=== PATIENT | female | born 1945 | race Caucasian/White ===

== ENCOUNTER → 2020-03-18 12:20 | Outpatient (BNVA) | payer MEDICARE, OTHER, SELFPAY | PROVIDERS: Family Provider Family Medicine; Visit Provider Nurse Practitioner Family | DX: M54.9 Dorsalgia, unspecified (principal) | CPT/HCPCS: 81000 ==

== ENCOUNTER 2020-03-21 22:28 | Emergency (ER) | payer MEDICARE, OTHER, SELFPAY ==
[2020-03-21 22:54] VITALS: BP 132/79; PULSE 72; RESP 16; TEMP 36.8; O2SAT 91; BMI 34.0
--- NOTE | 2020-03-21 23:13 | XR_ITS ---
WS: [id number] Exam: XR chest 1V portable [id number] Date/Time of Exam: 03/21/2020 11:22 PM Reason For Exam: sob No priors. Minimal infiltrate in the right base could represent chronic change or developing pneumonia. Remainin g lung brand are clear. Normal cardiomediastinal structures and regional bony elements. No pleural e ffusions. No pneumothorax. XR/XR chest 1V portable [id number] IMPRESSION: 1. Subtle infiltrate in the right lung base. This could represent chronic jonas e or developing pneumonia.
--- NOTE | 2020-03-21 23:13 | ECG_ITS ---
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 Measurements Intervals [place] Rate: 67 P: 172 OK: 185 QRS: 171 QRSD: 114 T: 171 QT: 382 QTc: 404 Interpretive Statements SINUS RHYTHM ARM LEADS REVERSED [INVERTED P AND QRS IN I] No previous ECG available for comparison Electronically Signed On 03-22-2020 9:22:07 INDUSTRIAL MACHINE OPERATOR by Eladia Martinez M.D. [email or web address]
[2020-03-21 23:27] VITALS: O2SAT 90
--- NOTE | 2020-03-21 23:27 | W.ED.COVID ---
HPI - COVID General: Chief Complaint: COVID symptoms Stated Complaint: SOB covid Symptoms Time Seen by Provider: 03/21/20 22:57 Source: patient Mode of arrival: ambulatory Limitations: no limitations Triage information: Has fever, cough or shortness of breath. Exposure to COVID + person last 14 days History of Present Illness: HPI Narrative: 74-year-old female states that since Ginny she has been having cough and body aches. She tested positive for Covid yesterday. She states that tonight her cough increased and she is having some shortness of breath. She is able speak in full sentences here and pulse ox is 90% on room air. She denies any worsening or improving factors currently. COVID 19 common symptoms: positive chills, non-productive cough, dyspnea and body aches; negative headache(s), throat pain, nausea, vomiting or diarrhea COVID 19 other sytmptoms: negative chest pain COVID Results: No Data to Display Review of Systems Const: Reports: chills and body aches Eyes: Denies: blurry vision or eye discomfort ENMT: Denies: throat pain or dental pain Card: Denies: chest pain Resp: Reports: dyspnea and non-productive cough GI: Denies: abdominal pain, nausea, vomiting or diarrhea : Denies: dysuria Musc: Denies: neck pain or back pain Skin/Breast: Denies: rash Neuro: Denies: headache(s) Psych: Denies: depression Luis/Lymph: Denies: easy bruising All/Imm: Denies: urticaria Physical Exam Const: COMMON NORMALS: no acute distress, patient oriented x3 and healthy appearing HENMT: COMMON NORMALS: normocephalic and atraumatic HEAD & SCALP: normocephalic and atraumatic Eye: COMMON NORMALS: Equal, round and reactive pupils present and EOMs intact bilaterally PUPIL: Yes Equal, round and reactive pupils present Neck/C-Spine: COMMON NORMALS: full ROM and supple Chest: COMMONS NORMALS: normal inspection of the chest and normal palpation of entire chest wall Resp: COMMON NORMALS: normal respiratory effort, No retractions and No use of accessory muscles AUSCULTATION: rales Cardio: COMMON NORMALS: regular rate, regular rhythm and No murmurs present (Cardio) RATE: regular rate RHYTHM: regular rhythm GI: COMMON NORMALS: Normal to inspection, nondistended, normoactive bowel sounds present, Soft to palpation, non-tender and no masses PALPATION: Yes Soft to palpation Extremity: COMMON NORMALS: normal to inspection and full ROM Neuro: COMMON NORMALS: patient oriented x3, moves all extremities and no focal motor deficits Psych: COMMON NORMALS: mental status grossly normal, Normal thought process present and cooperative THOUGHT PROCESS: Normal thought process present Skin: COMMON NORMALS: no rashes or lesions noted and no wounds GENERAL SKIN EXAM: no rashes or lesions noted Course Vital Signs: Vital signs: Vital Signs Temperature 98.3 F 03/21/20 22:54 Pulse Rate 74 03/22/20 02:39 Respiratory Rate 20 H 03/22/20 02:39 Blood Pressure 126/66 03/22/20 02:39 Pulse Oximetry 96 03/22/20 02:39 MDM - COVID MDM Narrative: Medical decision making narrative: Presents with COVID-19 likely causing her slight hypoxia. She is in no distress here and I feel she is stable for discharge. Patient discharged on home oxygen. She is to continue the antibiotics and steroid she was prescribed at [facility]. Patient is to return if she has any worsening shortness of breath and understands agrees to plan. Lab Data: Labs: Lab Results 03/21/20 03/21/20 03/21/20 Range/Units 11:55 23:39 23:39 WBC 6.4 (4.0-10.0) 10^3/ uL RBC 4.12 (4.1-5.3) 10^6/u L Hgb 14.2 (11.5-15.3) g/dL Hct 40.6 (37.0-47.0) % MCV 98.5 (81-99) fL MCH 34.5 H (28.0-34.0) pg MCHC 35.0 (30.0-36.0) g/dL RDW 11.7 L (12.1-15.1) % Plt Count 191 (130-400) 10^3/c mm MPV 9.8 (7.4-10.4) fL Neut % (Auto) 78.0 % Lymph % (Auto) 16.0 % [place] % (Auto) 5.6 % Eos % (Auto) 0.0 % Baso % (Auto) 0.2 % Neut # (Auto) 4.99 (1.8-7.7) 10^3/u L Lymph # (Auto) 1.0 (0.8-4.8) 10^3/u L [place] # (Auto) 0.4 (0.2-0.9) 10^3/u L Eos # (Auto) 0.0 (0.0-0.8) 10^3/u L Baso # (Auto) 0.0 (0.0-0.1) 10^3/u L Nucleated RBC % (a uto) 0 % Nucleated RBCs # 0.0 /100WBC Specimen Type Arterial Sample Site Radial, right ABG pH 7.44 (7.35-7.45) ABG pCO2 37.1 (35-45) mmHg ABG pO2 97.3 (80.0-100.0) mmH g ABG HCO3 25.3 (22-26) mmol/L ABG Base Excess 1.3 (-2.0-2.0) mmol/ L Damien Test Pos Hematocrit 43.5 (37-47) % O2 Delivery Device Nc O2 Liters/Min 2.0 % FiO2 28.0 % Supervising Law Enforcement Analyst ID [id number] Sodium 136 (136-145) mmol/L Potassium 3.9 (3.5-5.1) mmol/L Chloride 99 (98-107) mmol/L Carbon Dioxide 24 (22-29) mmol/L Anion Gap 16.9 (5-19) BUN 23 (8-23) mg/dL Creatinine 0.6 (0.5-0.9) mg/dL GFR Calculation Not Reportable Glucose 137 H (65-115) mg/dL Calculated Osmolal ity 288 (285-295) mOsm/k g Lactic Acid (0.5-2.2) mmol/L Calcium 9.0 (8.5-10.5) mg/dL Total Bilirubin 0.3 (0.15-1.2) mg/dL AST 46 H (0-32) U/L ALT 27 (0-33) U/L Alkaline Phosphata se 97 (35-105) IU/L C-Reactive Protein 51.4 H (0.0-4.9) mg/L NT-Pro-B Natriuret Pep 105 (0-125) pg/mL Total Protein 6.8 (6.6-8.7) g/dL Albumin 3.8 (3.5-5.2) g/dL Globulin 3.0 (1.3-4.6) g/dL 12/ Range/Units 23:39 WBC (4.0-10.0) 10^3/ uL RBC (4.1-5.3) 10^6/u L Hgb (11.5-15.3) g/dL Hct (37.0-47.0) % MCV (81-99) fL MCH (28.0-34.0) pg MCHC (30.0-36.0) g/dL RDW (12.1-15.1) % Plt Count (130-400) 10^3/c mm MPV (7.4-10.4) fL Neut % (Auto) % Lymph % (Auto) % [place] % (Auto) % Eos % (Auto) % Baso % (Auto) % Neut # (Auto) (1.8-7.7) 10^3/u L Lymph # (Auto) (0.8-4.8) 10^3/u L [place] # (Auto) (0.2-0.9) 10^3/u L Eos # (Auto) (0.0-0.8) 10^3/u L Baso # (Auto) (0.0-0.1) 10^3/u L Nucleated RBC % (a uto) % Nucleated RBCs # /100WBC Specimen Type Sample Site ABG pH (7.35-7.45) ABG pCO2 (35-45) mmHg ABG pO2 (80.0-100.0) mmH g ABG HCO3 (22-26) mmol/L ABG Base Excess (-2.0-2.0) mmol/ L Damien Test Hematocrit (37-47) % O2 Delivery Device O2 Liters/Min % FiO2 % Supervising Law Enforcement Analyst ID Sodium (136-145) mmol/L Potassium (3.5-5.1) mmol/L Chloride (98-107) mmol/L Carbon Dioxide (22-29) mmol/L Anion Gap (5-19) BUN (8-23) mg/dL Creatinine (0.5-0.9) mg/dL GFR Calculation Glucose (65-115) mg/dL Calculated Osmolal ity (285-295) mOsm/k g Lactic Acid 1.0 (0.5-2.2) mmol/L Calcium (8.5-10.5) mg/dL Total Bilirubin (0.15-1.2) mg/dL AST (0-32) U/L ALT (0-33) U/L Alkaline Phosphata se (35-105) IU/L C-Reactive Protein (0.0-4.9) mg/L NT-Pro-B Natriuret Pep (0-125) pg/mL Total Protein (6.6-8.7) g/dL Albumin (3.5-5.2) g/dL Globulin (1.3-4.6) g/dL Imaging Data: CXR: Attestation: I personally reviewed and interpreted this imaging study as follows: My impression: No acute abnormalities EKG Data: EKG 1: Attestation: I personally reviewed and interpreted this EKG as follows: EKG interpretation date: 03/21/20 EKG interpretation time: 23:39 Interpretation: Normal sinus rhythm heart rate [address] or T wave abnormalities QRS 114 QTC 397 COVID Results: No Data to Display Discharge Plan Discharge Patient Disposition: Home Clinical Impression: COVID-19 Condition: Stable Prescriptions: No Action metoprolol succinate [Toprol XL] 50 mg tablet extended release 24 hr 50 mg PO DAILY RF: 0 arthritis med PO RF: 0 Discharge Orders: Discharge ED (Routine); Ordered 03/22/20 Ordered By: Alex Manzano Other Ambulatory Orders: DME: Oxygen (Order) Location: None Selected Ordered By: Alex Manzano Referrals: Clare Arnett MD [Primary Care Provider] - 1-3 days Discharge Diet: Advance as tolerated Discharge Activity: Resume usual activity Patient Instructions: Upper Respiratory Infection (ED) Coding Level of Care Code ED Web Site Specialist for Chg Fwd Exam Comprehensive
[2020-03-21 23:53] LABS: Basophils % 0.2 %; Hematocrit 40.6 % (37.0-47.0); Hemoglobin 14.2 g/dL (11.5-15.3); Mean Corpuscular Hemoglobin 34.5 pg (28.0-34.0); Mean Corpuscular Volume 98.5 fL (81-99); Mean Platelet Volume 9.8 fL (7.4-10.4); Monocytes # 0.4 10^3/uL (0.2-0.9); Monocytes % 5.6 %; Neutrophils # 4.99 10^3/uL (1.8-7.7); Nucleated Red Blood Cells % 0 %; Platelet Count 191 10^3/cmm (130-400); Red Blood Count 4.12 10^6/uL (4.1-5.3); Red Cell Distribution Width 11.7 % (12.1-15.1); White Blood Count 6.4 10^3/uL (4.0-10.0)
[2020-03-21] MEDS: albuterol 8 gm MDI 2 PUFF INHALATION (23:55)
[2020-03-21 23:56] VITALS: PULSE 60; RESP 16; O2SAT 95
[2020-03-21 23:58] VITALS: PULSE 62
[2020-03-22 00:10] LABS: ABG PCO2 37.1 mmHg (35-45); ABG PH Result 7.44 (7.35-7.45); Arterial Blood Gas Hematocrit 43.5 % (37-47); Base Excess ABG 1.3 mmol/L (-2.0-2.0); Blood Gas Allen Test Pos; Blood Gas Sample Site Radial, right; Blood Gas Sample Type Arterial; HCO3 ABG 25.3 mmol/L (22-26); Oxygen Device NC; PO2 ABG 97.3 mmHg (80.0-100.0)
[2020-03-22 00:17] LABS: Alanine Aminotransferase 27 U/L (0-33); Albumin Level 3.8 g/dL (3.5-5.2); Alkaline Phosphatase 97 IU/L (35-105); Anion Gap 16.9 (5-19); Aspartate Amino Transferase 46 U/L (0-32); Blood Urea Nitrogen 23 mg/dL (8-23); C Reactive Protein 51.4 mg/L (0.0-4.9); Carbon Dioxide 24 mmol/L (22-29); Chloride 99 mmol/L (98-107); Glucose 137 mg/dL (65-115); NT Pro B Type Natriuretic Pept 105 pg/mL (0-125); Osmolality Calculated 288 mOsm/kg (285-295); Potassium 3.9 mmol/L (3.5-5.1); Sodium 136 mmol/L (136-145); Total Bilirubin 0.3 mg/dL (0.15-1.2); Total Protein 6.8 g/dL (6.6-8.7)
[2020-03-22 02:27] VITALS: BP 126/66; PULSE 74; RESP 20; O2SAT 96
[2020-03-22 02:39] VITALS: BP 126/66; PULSE 74; RESP 20; O2SAT 96
== END 2020-03-22 03:13 | disposition home or self-care (01) ==
PROVIDERS: Emergency Provider Emergency Medicine; PCP Family Medicine
DX: U07.1 COVID-19 (principal)
CPT/HCPCS: 12345; 36600; 71045; 80053; 82803; 83605; 83880; 85025; 86140; 87040; 93005; 94640; 99281; 99282; 99283; J3535

== ENCOUNTER 2020-03-22 13:05 | Emergency (ER) | payer MEDICARE, OTHER, SELFPAY ==
[2020-03-22 13:36] VITALS: BP 130/79; PULSE 77; RESP 24; TEMP 37; O2SAT 92; BMI 34.0
--- NOTE | 2020-03-22 13:58 | ED_ITS ---
HPI - COVID General: Chief Complaint: Infusion: Covid [facility] Stated Complaint: covid+/phy ref for infusion Time Seen by Provider: 03/22/20 13:10 Triage information: Has fever, cough or shortness of breath . Exposure to COVID + person last 14 days History of Present Illness: HPI Narrative: 74-year-old female presents emergency room she was seen 2 days ago [facility] and tested positive approximately 5 days ago she began having diarrhea progressively had increasing shortness of breath cough weakness and flulike symptoms. She was seen yesterday and sent home on 2 L by nasal cannula. She presents today with a nasal cannula in place but she is not actually getting any oxygen the valve is not turned on. She is satting at 90 to 92% consistently while seated. She still has generalized flulike symptoms aches and fever at home. She was referred here by a family member who is aware that we could do bam infusions. MD complaint: has COVID symptoms Prior covid testing: yes, results known COVID 19 common symptoms: positive fever(s), chills, cough, non-productive cough, dyspnea, fatigue, body aches, nasal congestion, nausea and diarrhea; negative headache(s), loss of sense of smell and/or taste, throat pain or vomiting COVID 19 other sytmptoms: negative chest pain or requiring oxygen Onset (ago): day(s) (5) Severity: mild Pertinent comorbid conditions: hypertension, obesity and recent ED visit for same complaint Treatment prior to arrival: acetaminophen, ibuprofen and oxygen (Was given oxygen at last night's visit but is not requiring it at this point.) COVID Results: No Data to Display Review of Systems Const: Reports: fever(s), chills, body aches and fatigue ENMT: Reports: nasal congestion; Denies: throat pain Card: Denies: chest pain, edema, dyspnea on exertion or orthopnea Resp: Reports: dyspnea and non-productive cough GI: Reports: diarrhea; Denies: vomiting : Denies: flank pain, difficulty voiding, dysuria, urinary frequency or urinary urgency Skin/Breast: Denies: rash or pruritus Neuro: Denies: headache(s) Physical Exam Const: COMMON NORMALS: no acute distress GENERAL APPEARANCE: cooperative and comfortable ORIENTATION/CONSCIOUSNESS: Yes awake, Yes oriented to person, Yes oriented to place and Yes oriented to time HENMT: COMMON NORMALS: normocephalic, atraumatic and hearing grossly normal bilaterally HEAD & SCALP: normocephalic and atraumatic Eye: COMMON NORMALS: Equal, round and reactive pupils present, EOMs intact bilaterally, conjunctivae normal and no scleral icterus CONJUNCTIVA: Yes conjunctivae normal PUPIL: Yes Equal, round and reactive pupils present Neck/C-Spine: COMMON NORMALS: full ROM, no lymphadenopathy, supple and no JVD Lymph: LYMPHATIC: no lymphadenopathy noted and no lymphedema noted Resp: COMMON NORMALS: normal respiratory effort, No retractions, No use of accessory muscles and clear to auscultation bilaterally AUSCULTATION: clear to auscultation bilaterally Cardio: COMMON NORMALS: no JVD, regular rate, regular rhythm and No murmurs present (Cardio) RATE: regular rate RHYTHM: regular rhythm GI: COMMON NORMALS: Soft to palpation and No hepatosplenomegaly present AUSCULTATION: Yes normoactive bowel sounds PALPATION: Yes Soft to palpation, No Tenderness to palpation present (GI), No Guarding due to palpation present (GI) and Yes No hepatosplenomegaly present Extremity: COMMON NORMALS: normal to inspection, capillary refill normal, no clubbing, cyanosis or edema, no calf tenderness and no pedal edema Neuro: SENSORIUM/ORIENTATION: Yes oriented to person, Yes oriented to place and Yes oriented to time Skin: COMMON NORMALS: no rashes or lesions noted GENERAL SKIN EXAM: no rashes or lesions noted Course Vital Signs: Vital signs: Vital Signs Temperature 98.6 F 03/22/20 13:36 Pulse Rate 71 03/22/20 14:39 Respiratory Rate 22 H 03/22/20 14:39 Blood Pressure 130/79 03/22/20 14:39 Pulse Oximetry 94 03/22/20 14:39 MDM - COVID MDM Narrative: Medical decision making narrative: Reviewed indications excluder is for brown line of a map. Patient would like to go through with that she is on the borderline for her oxygen saturations. She was given oxygen last night but has not actually been using it because of valve is never been turned on her she is maintaining an appropriate oxygen sat although of the lower end of normal. Discussed with her that the need for oxygen is actually in excluder. She was given the oxygen more or less prophylactically last night. She would still like to proceed she was observed for a time. RT was consulted for ambulatory evaluation. Oxygen sats desatted into the mid and upper 80s with any efforts to ambulation. Based on this I do not believe she is a good candidate she had meets the exclusion criteria of requiring oxygen. Discussed this with her we will discharge her home started on dexamethasone. Use albuterol as needed return to the nearest emergency room if she has any worsening of symptoms COVID Results: No Data to Display Discharge Plan Discharge Patient Disposition: Home Clinical Impression: COVID-19 Condition: Stable Prescriptions: New dexamethasone 6 mg tablet 6 mg PO DAILY Qty: 7 RF: 0 No Action metoprolol succinate [Toprol XL] 50 mg tablet extended release 24 hr 50 mg PO DAILY RF: 0 arthritis med PO RF: 0 Discharge Orders: Discharge ED (Routine); Ordered 03/22/20 Ordered By: Mukul Rosenthal Referrals: Clare Arnett MD [Primary Care Provider] - Discharge Diet: Usual diet Discharge Activity: Increase activity as tolerated Coding Level of Care Code ED Gear Design Engineer for David Fwd Exam Comprehensive
[2020-03-22 14:21] VITALS: PULSE 98; RESP 24; O2SAT 92
--- NOTE | 2020-03-22 14:37 | PC.NURSE ---
Per Dr Rosenthal, since pt was dc'd home on oxygen, pt must be non-dependant on oxygen to receive BAM infusion. Pt had a walk-study done by RT and sats dropped to 87% on RA. Pt does not qualify for BAM. Pt shown how to use her home oxygen tank. Pt was 94% on RA upon dc, placed back on 2LNC and shown how to use her tank.
[2020-03-22 14:39] VITALS: BP 130/79; PULSE 71; RESP 22; O2SAT 94
== END 2020-03-22 14:40 | disposition home or self-care (01) ==
PROVIDERS: Emergency Provider Family Medicine; PCP Family Medicine
DX: U07.1 COVID-19 (principal)
CPT/HCPCS: 12345; 99281; 99282

== ENCOUNTER 2020-03-23 09:33 | Inpatient (IN) | payer MEDICARE, OTHER, SELFPAY ==
[2020-03-23] VITALS (15 sets, daily range): BP systolic 121–132; BP diastolic 66–78; PULSE 68–78; RESP 16–28; TEMP 36.7–36.9; O2SAT 90–98; BMI 34.0
--- NOTE | 2020-03-23 09:49 | XR_ITS ---
WS: [id number] Exam: XR chest 1V portable [id number] Date/Time of Exam: 03/23/2020 10:11 AM Reason For Exam: dyspnea Comparison 03/21/2020. Subtle right basal infiltrate is unchanged. There are new infiltrates in the left lower lobe which crenshaw ve developed since previous study. Normal heart size. There may be some widening of the mediastinum. The lungs are fully expanded. No pleural effusions. Regional bony elements are intact. XR/XR chest 1V portable [id number] IMPRESSION: 1. Mild bibasal pulmonary infiltrate suspicious for pneumonia.
[2020-03-23 10:05] LABS: Basophils % 0.1 %; Hematocrit 43.8 % (37.0-47.0); Lymphocytes # 1.3 10^3/uL (0.8-4.8); Lymphocytes % 16.6 %; Mean Corpuscular HGB Conc 34.2 g/dL (30.0-36.0); Mean Corpuscular Hemoglobin 34.2 pg (28.0-34.0); Mean Platelet Volume 9.8 fL (7.4-10.4); Monocytes # 0.3 10^3/uL (0.2-0.9); Neutrophils # 6.29 10^3/uL (1.8-7.7); Neutrophils % 78.8 %; Nucleated Red Blood Cells % 0 %; Platelet Count 227 10^3/cmm (130-400); Red Blood Count 4.38 10^6/uL (4.1-5.3); Red Cell Distribution Width 11.9 % (12.1-15.1)
[2020-03-23] MEDS: albuterol 8 gm MDI 2 PUFF INHALATION (10:21)
--- NOTE | 2020-03-23 10:41 | ED_ITS ---
HPI - COVID General: Chief Complaint: COVID symptoms Stated Complaint: LOW O2 LEVELS, COVID+ Time Seen by Provider: 03/23/20 09:38 Triage information: Has fever, cough or shortness of breath . Exposure to COVID + person last 14 days History of Present Illness: HPI Narrative: 74-year-old female who returns to the ER complaining of increased shortness of breath she was seen 2 days ago with shortness of breath she has known positive Covid test she was started on oxygen. She returned yesterday waiting to get a monoclonal antibody infusion infusion. When she came she was not actually receiving any oxygen because the valve was not turned on in the oxygen bottle. We monitored her for a time she stayed in the low 90s. We did consider monoclonal antibody however when we had her ambulate with minimal exertion she dropped into the mid 80s. We decided against infusing because of the increased oxygen requirement. She returns today complaining of worsening shortness of breath. She has a nonproductive cough and continues to have myalgias. MD complaint: known COVID positive Prior testing date: 03/17/20 COVID 19 common symptoms: positive fever(s), chills, cough, non-productive cough, dyspnea, fatigue, body aches, nasal congestion and nausea COVID 19 other sytmptoms: positive requiring oxygen; negative chest pain Onset (ago): day(s) Severity: mild Pertinent comorbid conditions: COPD/respiratory disease Treatment prior to arrival: steroids, oxygen and breathing treatments COVID Results: No Data to Display Review of Systems Const: Reports: fever(s), chills, body aches and fatigue ENMT: Reports: nasal congestion Card: Denies: chest pain, edema, dyspnea on exertion or orthopnea Resp: Reports: dyspnea and non-productive cough GI: Reports: nausea : Denies: flank pain, difficulty voiding, dysuria, urinary frequency or urinary urgency Skin/Breast: Denies: rash or pruritus PFSH ED PFSH: Medical History (Updated 03/23/20 @ 16:02 by Mikael Bowden MD) Hypertension Surgical History (Updated 03/23/20 @ 16:01 by Mikael Bowden MD) History of left knee replacement Family History (Updated 03/23/20 @ 16:02 by Mikael Bowden MD) Father CAD (coronary artery disease) Mother CAD (coronary artery disease) Social History (Updated 03/23/20 @ 16:02 by Mikael Bowden MD) Smoking and tobacco status: never smoked Alcohol intake: never Substance/Drug Use: never Physical Exam Const: COMMON NORMALS: no acute distress GENERAL APPEARANCE: cooperative and comfortable ORIENTATION/CONSCIOUSNESS: Yes awake, Yes oriented to person, Yes oriented to place and Yes oriented to time HENMT: COMMON NORMALS: normocephalic, atraumatic and hearing grossly normal bilaterally HEAD & SCALP: normocephalic and atraumatic Neck/C-Spine: COMMON NORMALS: no JVD Resp: COMMON NORMALS: normal respiratory effort, No retractions, No use of accessory muscles and clear to auscultation bilaterally AUSCULTATION: clear to auscultation bilaterally Cardio: COMMON NORMALS: no JVD, regular rate, regular rhythm and No murmurs present (Cardio) RATE: regular rate RHYTHM: regular rhythm GI: COMMON NORMALS: Soft to palpation and No hepatosplenomegaly present AUSCULTATION: Yes normoactive bowel sounds PALPATION: Yes Soft to palpation, No Tenderness to palpation present (GI), No Guarding due to palpation present (GI) and Yes No hepatosplenomegaly present Extremity: COMMON NORMALS: normal to inspection, capillary refill normal, no clubbing, cyanosis or edema, no calf tenderness and no pedal edema Neuro: SENSORIUM/ORIENTATION: Yes oriented to person, Yes oriented to place and Yes oriented to time Skin: COMMON NORMALS: no rashes or lesions noted GENERAL SKIN EXAM: no rashes or lesions noted Course Vital Signs: Vital signs: Vital Signs Temperature 98.4 F 03/23/20 17:05 Pulse Rate 73 03/23/20 17:05 Respiratory Rate 16 03/23/20 17:05 Blood Pressure 122/66 03/23/20 17:05 Pulse Oximetry 97 03/23/20 17:05 MDM - COVID MDM Narrative: Medical decision making narrative: Patient has continued to decline has been back her several times at this point I am not comfortable with her being discharged home were going to go ahead and admit her discussed with Dr. Иван duran. Given her age progression increased oxygen needs and history of asthma she needs to be monitored Lab Data: Labs: Lab Results 03/23/20 03/23/20 03/23/20 Range/Units 09:45 09:45 09:45 WBC 8.0 (4.0-10.0) 10^3/ uL RBC 4.38 (4.1-5.3) 10^6/u L Hgb 15.0 (11.5-15.3) g/dL Hct 43.8 (37.0-47.0) % MCV 100.0 H (81-99) fL MCH 34.2 H (28.0-34.0) pg MCHC 34.2 (30.0-36.0) g/dL RDW 11.9 L (12.1-15.1) % Plt Count 227 (130-400) 10^3/c mm MPV 9.8 (7.4-10.4) fL Neut % (Auto) 78.8 % Lymph % (Auto) 16.6 % [place] % (Auto) 4.0 % Eos % (Auto) 0.0 % Baso % (Auto) 0.1 % Neut # (Auto) 6.29 (1.8-7.7) 10^3/u L Lymph # (Auto) 1.3 (0.8-4.8) 10^3/u L [place] # (Auto) 0.3 (0.2-0.9) 10^3/u L Eos # (Auto) 0.0 (0.0-0.8) 10^3/u L Baso # (Auto) 0.0 (0.0-0.1) 10^3/u L Nucleated RBC % (a uto) 0 % Nucleated RBCs # 0.0 /100WBC D-Dimer 0.63 H (0-0.59) ug/mIFE U Sodium 145 (136-145) mmol/L Potassium 3.6 (3.5-5.1) mmol/L Chloride 105 (98-107) mmol/L Carbon Dioxide 28 (22-29) mmol/L Anion Gap 15.6 (5-19) BUN 22 (8-23) mg/dL Creatinine 0.8 (0.5-0.9) mg/dL GFR Calculation Not Reportable Glucose 142 H (65-115) mg/dL Calculated Osmolal ity 306 H (285-295) mOsm/k g Lactic Acid (0.5-2.2) mmol/L Calcium 9.3 (8.5-10.5) mg/dL Total Bilirubin 0.4 (0.15-1.2) mg/dL AST 44 H (0-32) U/L ALT 27 (0-33) U/L Alkaline Phosphata se 103 (35-105) IU/L Lactate Dehydrogen ase 467 H (135-214) U/L Total Protein 7.6 (6.6-8.7) g/dL Albumin 4.1 (3.5-5.2) g/dL Globulin 3.5 (1.3-4.6) g/dL 03/23/20 Range/Units 09:45 WBC (4.0-10.0) 10^3/ uL RBC (4.1-5.3) 10^6/u L Hgb (11.5-15.3) g/dL Hct (37.0-47.0) % MCV (81-99) fL MCH (28.0-34.0) pg MCHC (30.0-36.0) g/dL RDW (12.1-15.1) % Plt Count (130-400) 10^3/c mm MPV (7.4-10.4) fL Neut % (Auto) % Lymph % (Auto) % [place] % (Auto) % Eos % (Auto) % Baso % (Auto) % Neut # (Auto) (1.8-7.7) 10^3/u L Lymph # (Auto) (0.8-4.8) 10^3/u L [place] # (Auto) (0.2-0.9) 10^3/u L Eos # (Auto) (0.0-0.8) 10^3/u L Baso # (Auto) (0.0-0.1) 10^3/u L Nucleated RBC % (a uto) % Nucleated RBCs # /100WBC D-Dimer (0-0.59) ug/mIFE U Sodium (136-145) mmol/L Potassium (3.5-5.1) mmol/L Chloride (98-107) mmol/L Carbon Dioxide (22-29) mmol/L Anion Gap (5-19) BUN (8-23) mg/dL Creatinine (0.5-0.9) mg/dL GFR Calculation Glucose (65-115) mg/dL Calculated Osmolal ity (285-295) mOsm/k g Lactic Acid 2.0 (0.5-2.2) mmol/L Calcium (8.5-10.5) mg/dL Total Bilirubin (0.15-1.2) mg/dL AST (0-32) U/L ALT (0-33) U/L Alkaline Phosphata se (35-105) IU/L Lactate Dehydrogen ase (135-214) U/L Total Protein (6.6-8.7) g/dL Albumin (3.5-5.2) g/dL Globulin (1.3-4.6) g/dL COVID Results: No Data to Display Discharge Plan Discharge Patient Disposition: Admitted As Inpatient Admit Provider: Mikael Bowden Clinical Impression: COVID-19 Condition: Stable Coding Level of Care Code ED Animal Care Supervisor for Chg Fwd Exam Comprehensive
[2020-03-23 10:46] LABS: D Dimer 0.63 ug/mIFEU (0-0.59)
[2020-03-23 10:49] LABS: Alanine Aminotransferase 27 U/L (0-33); Albumin Level 4.1 g/dL (3.5-5.2); Alkaline Phosphatase 103 IU/L (35-105); Anion Gap 15.6 (5-19); Aspartate Amino Transferase 44 U/L (0-32); Blood Urea Nitrogen 22 mg/dL (8-23); Calcium 9.3 mg/dL (8.5-10.5); Carbon Dioxide 28 mmol/L (22-29); Chloride 105 mmol/L (98-107); Globulin 3.5 g/dL (1.3-4.6); Glucose 142 mg/dL (65-115); Lactate Dehydrogenase 467 U/L (135-214); Osmolality Calculated 306 mOsm/kg (285-295); Potassium 3.6 mmol/L (3.5-5.1); Sodium 145 mmol/L (136-145); Total Bilirubin 0.4 mg/dL (0.15-1.2); Total Protein 7.6 g/dL (6.6-8.7)
--- NOTE | 2020-03-23 11:47 | CT_ITS ---
WS: [id number] Exam: CT angio chest PE protcl [id number] Date/Time of Exam: 03/23/2020 12:44 PM Reason For Exam: COVID/elevated d dimer DLP: 553.[address] scans at [facility] use at least one of these dose optimization techniques: automat ed exposure control; mA and/or kV adjustment per patient size (includes targeted exams where dose is matched to clinical indication); or iterative reconstruction. No sign of acute PE. The thoracic aorta is normal in caliber. The airway is patent. No significant me diastinal or hilar lymphadenopathy. There are scattered groundglass infiltrates throughout both lungs consistent with pneumonia. The lungs are fully expanded. No pneumothorax or pleural effusion seen. N o pericardial effusion noted. Moderate fullness of the renal collecting structures of the left kidney noted on CT sections the upper abdomen. No destructive bone lesions are seen. CT/CT angio chest PE protcl [id number] IMPRESSION: 1. No sign of acute PE. 2. Scattered groundglass infiltrates throughout both lungs suggesting pneumonia . This pattern can be seen with Covid 19 pneumonia.
[2020-03-23] MEDS: iohexol 350 mg/mL 100 mL Btl IV (13:00)
[2020-03-23] MEDS: remdesivir 200 MG in sodium chloride 0.9% (100 ml) 100 ML 100 MG IV (14:48)
--- NOTE | 2020-03-23 15:58 | P.HP_ITS ---
Providers/Chief Complaint Primary Care Provider: Clare Arnett MD Chief Complaint: LOW O2 LEVELS, COVID+ History of Present Illness Estefania Jack is a 74 year old female with a past medical history of hypertension, who presents to [facility] for complaints of shortness of breath, cough, fatigue, malaise related to COVID-19. Patient tested positive for on the , she had symptoms for roughly a week, tells me that her oxygen requirements have increased, she feels more short of breath, low-grade fevers, no loss of taste, no loss of smell, no chest pain, no lightheadedness, no dizziness. No cardiovascular history, history of strokes, no history of COPD, no history of smoking Review of Systems Const: Reports: fever(s), fatigue and malaise; Denies: chills Eyes: Denies: change in vision or blurry vision ENMT: Denies: nasal congestion Card: Denies: chest pain Resp: Reports: dyspnea; Denies: productive cough, non-productive cough or wheezing GI: Denies: abdominal pain, nausea, vomiting, hematemesis, diarrhea, constipation, hematochezia or melena : Denies: flank pain, dysuria or urinary frequency Musc: Denies: neck pain or back pain Skin/Breast: Denies: rash Neuro: Denies: headache(s), dizziness or vertigo Psych: Denies: anxiety or depression Endo: Denies: polyuria or polydipsia Medications/Allergies Home Medications Medication Instructions Recorded Confirmed Last Taken Type metoprolol succinate 50 mg 50 mg PO DAILY@03/18/20 03/23/20 03/22/20 History tablet,extended release 24 hr celecoxib 100 mg PO BID@03/23/20 03/23/20 03/23/20 History dexamethasone 6 mg PO DAILY@03/23/20 03/23/20 03/23/20 History doxycycline hyclate 100 mg PO BID@03/23/20 03/23/20 03/23/20 History prednisone 20 mg PO BID@03/23/20 03/23/20 03/23/20 History Allergies Allergy/AdvReac Type Severity Reaction Status Date / Time cefuroxime [From Ceftin] Allergy ALGY-Rash Verified 03/23/20 09:48 erythromycin base Allergy rash Verified 03/18/20 11:36 meloxicam Allergy rash Verified 03/18/20 11:36 PFSH Acute PFSH: Medical History (Updated 03/23/20 @ 16:02 by Mikael Bowden MD) Hypertension Surgical History (Updated 03/23/20 @ 16:01 by Mikael Bowden MD) History of left knee replacement Family History (Updated 03/23/20 @ 16:02 by Mikael Bowden MD) Father CAD (coronary artery disease) Mother CAD (coronary artery disease) Social History (Updated 03/23/20 @ 16:02 by Mikael Bowden MD) Smoking and tobacco status: never smoked Alcohol intake: never Substance/Drug Use: never Vitals/I&O/Wt Last Vital Signs Temp 98.0 F 03/23/20 09:42 Pulse 78 03/23/20 15:00 Resp 18 03/23/20 15:00 BP 122/74 03/23/20 15:00 Pulse Ox 98 03/23/20 15:00 Weight last 48 hrs Weight 89.811 kg Physical Exam Const: COMMON NORMALS: no acute distress and patient oriented x3 GENERAL APPEARANCE: cooperative and comfortable HENMT: COMMON NORMALS: normocephalic HEAD & SCALP: normocephalic Eye: COMMON NORMALS: Equal, round and reactive pupils present and EOMs intact bilaterally GENERAL EYE: appearance normal, both eyes and all related structures PUPIL: Yes Equal, round and reactive pupils present Neck/C-Spine: COMMON NORMALS: full ROM, no lymphadenopathy, no JVD and Thyroid normal THYROID: Thyroid normal Lymph: LYMPHATIC: no lymphadenopathy noted Resp: COMMON NORMALS: normal respiratory effort, No retractions, No use of accessory muscles and clear to auscultation bilaterally AUSCULTATION: clear to auscultation bilaterally Cardio: COMMON NORMALS: no JVD, regular rate, regular rhythm, S1 normal heart sound present, S2 normal heart sound present, No gallops present (Cardio), No clicks present (Cardio) and No murmurs present (Cardio) RATE: regular rate RHYTHM: regular rhythm HEART SOUNDS: S1 normal heart sound present and S2 normal heart sound present GI: COMMON NORMALS: Normal to inspection, nondistended, normoactive bowel sounds present, Soft to palpation, non-tender and No hepatosplenomegaly present PALPATION: Yes Soft to palpation and Yes No hepatosplenomegaly present Extremity: COMMON NORMALS: normal to inspection, full ROM and no pedal edema Neuro: COMMON NORMALS: patient oriented x3, CN's II-XII intact bilaterally, moves all extremities and no focal motor deficits Psych: COMMON NORMALS: mental status grossly normal, Normal thought process present and cooperative THOUGHT PROCESS: Normal thought process present Data : 03/23/20 09:45 03/23/20 09:45 A&P Assessment and plan (1) COVID-19: -Sputum cultures, blood cultures -Remdesivir, Decadron -Levaquin for secondary bacterial infection coverage -Advair, albuterol, oxygen therapy -Lovenox for DVT prophylaxis -Full code Status: Acute (2) Hypertension: Status: Acute (3) Secondary bacterial pneumonia: Status: Acute (4) Hypoxia: Status: Acute Attestations Medical Necessity Statement*: Patient requires hospitalization, outpatient with observation, for COVID-19 pneumonia, secondary bacterial pneumonia, hypoxia Coding Level of Care Code Acute 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
[2020-03-23] MEDS: levofloxacin-dextrose 5 % 750 MG/150 ML PREMIX 100 MG IV (17:48)
[2020-03-23] MEDS: enoxaparin 40 mg/0.4 mL Syringe SUBCUT (17:48)
[2020-03-23] MEDS: famotidine 20 mg Tablet PO (17:48)
[2020-03-23] MEDS: metoprolol succinate ER (24 HR) 50 mg Tablet PO (22:35)
[2020-03-24] VITALS (14 sets, daily range): BP systolic 103–128; BP diastolic 67–77; PULSE 66–82; RESP 16–20; TEMP 36.5–37.2; O2SAT 90–93
[2020-03-24 06:12] LABS: Basophils % 0.2 %; Hematocrit 45.2 % (37.0-47.0); Hemoglobin 14.2 g/dL (11.5-15.3); Lymphocytes # 1.7 10^3/uL (0.8-4.8); Lymphocytes % 20.8 %; Mean Corpuscular HGB Conc 31.4 g/dL (30.0-36.0); Mean Corpuscular Hemoglobin 34.7 pg (28.0-34.0); Mean Corpuscular Volume 110.5 fL (81-99); Mean Platelet Volume 9.9 fL (7.4-10.4); Monocytes # 0.3 10^3/uL (0.2-0.9); Monocytes % 3.1 %; Neutrophils # 6.06 10^3/uL (1.8-7.7); Neutrophils % 74.9 %; Nucleated Red Blood Cells % 0 %; Platelet Count 179 10^3/cmm (130-400); Red Blood Count 4.09 10^6/uL (4.1-5.3); Red Cell Distribution Width 12.4 % (12.1-15.1); White Blood Count 8.1 10^3/uL (4.0-10.0)
[2020-03-24 06:20] LABS: INR 1.01 (0.8-1.2)
[2020-03-24 06:21] LABS: Alanine Aminotransferase 20 U/L (0-33); Alkaline Phosphatase 86 IU/L (35-105); Anion Gap 13.8 (5-19); Aspartate Amino Transferase 38 U/L (0-32); Blood Urea Nitrogen 24 mg/dL (8-23); C Reactive Protein 64.9 mg/L (0.0-4.9); Calcium 8.7 mg/dL (8.5-10.5); Carbon Dioxide 24 mmol/L (22-29); Chloride 106 mmol/L (98-107); Fibrinogen 386 mg/dL (174-498); Globulin 3.1 g/dL (1.3-4.6); Glucose 113 mg/dL (65-115); Magnesium 2.3 mg/dL (1.7-2.3); Osmolality Calculated 295 mOsm/kg (285-295); Potassium 3.8 mmol/L (3.5-5.1); Sodium 140 mmol/L (136-145); Thyroid Stimulating Hormone 0.38 uIU/mL (0.27-4.20); Total Bilirubin 0.3 mg/dL (0.15-1.2); Total Protein 6.1 g/dL (6.6-8.7)
[2020-03-24 07:35] LABS: NT Pro B Type Natriuretic Pept 296 pg/mL (0-125); Procalcitonin 0.04 ng/mL (0-0.5)
[2020-03-24 07:49] LABS: Creatine Phosphokinase 51 U/L (26-192)
[2020-03-24] MEDS: albuterol 8 gm MDI 2 PUFF INHALATION ×3 (08:55→15:25)
[2020-03-24] MEDS: dexamethasone 4 mg/mL INJ 6 MG IVP (09:29)
[2020-03-24] MEDS: famotidine 20 mg Tablet PO ×2 (09:29→17:02)
--- NOTE | 2020-03-24 12:07 | PM.PN ---
Subjective Subjective: Interval history: Patient tells me this morning that she is just not feeling well, feeling shortness of breath with exertion, no nausea, no vomiting, no chest pain Vitals/I&O/Wt Last Vital Signs Temp 98.4 F 03/24/20 11:31 Pulse 71 03/24/20 11:31 Resp 17 03/24/20 11:31 BP 103/67 03/24/20 11:31 Pulse Ox 91 03/24/20 11:31 03/23/20 03/24/20 03/24/20 22:59 06:59 14:59 Intake Total 340 / 340 120 / 120 Output Total 300 / 300 250 / 250 Balance 340 / 340 -300 / 40 -130 / -130 Weight last 48 hrs Weight 89.811 kg Physical Exam Const: COMMON NORMALS: no acute distress and patient oriented x3 HENMT: COMMON NORMALS: normocephalic HEAD & SCALP: normocephalic Neck/C-Spine: COMMON NORMALS: no JVD Resp: COMMON NORMALS: normal respiratory effort, No retractions and No use of accessory muscles AUSCULTATION: breath sounds absent Cardio: COMMON NORMALS: no JVD, regular rate, regular rhythm, S1 normal heart sound present and S2 normal heart sound present RATE: regular rate RHYTHM: regular rhythm HEART SOUNDS: S1 normal heart sound present and S2 normal heart sound present GI: COMMON NORMALS: Normal to inspection, nondistended, normoactive bowel sounds present, Soft to palpation, non-tender, No hepatosplenomegaly present, no masses and no bruits PALPATION: Yes Soft to palpation and Yes No hepatosplenomegaly present Extremity: COMMON NORMALS: capillary refill normal, no clubbing, cyanosis or edema, no calf tenderness and no pedal edema Neuro: COMMON NORMALS: patient oriented x3 Psych: COMMON NORMALS: mental status grossly normal Data : 03/24/20 04:50 03/24/20 04:50 Micro: Microbiology 03/23/20 19:10 Blood Culture - Preliminary Blood SPECIMEN COLLECTED 03/23/20 18:50 Blood Culture - Preliminary Blood SPECIMEN COLLECTED A&P Assessment and plan (1) COVID-19: -Sputum cultures, blood cultures -Remdesivir, Decadron -Levaquin for secondary bacterial infection coverage -Advair, albuterol, oxygen therapy -Has macrocytosis, will order B12 folate -Lovenox for DVT prophylaxis -Full code Status: Acute (2) Hypertension: Status: Acute (3) Secondary bacterial pneumonia: Status: Acute (4) Hypoxia: Status: Acute Additional A&P Information Plan for today, get up out of bed, aggressive pulmonary toilet, incentive spirometer, flutter valve use, continue remdesivir, Decadron Attestations Medical Necessity Statement*: Patient course hospitalization, inpatient, greater than 2 midnights, for COVID-19 pneumonia, secondary bacterial pneumonia Coding Level of Care Code 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
--- NOTE | 2020-03-24 12:29 | PC.OT ---
Patient participated in occupational therapy screen. She is able to perform her daily tasks independently and declines further occupational therapy at this time.
[2020-03-24 14:00] LABS: LAB Peripheral Smear Sent for Review
[2020-03-24] MEDS: zinc gluconate 50 mg Tablet PO (14:44)
[2020-03-24 15:06] LABS: Folate Level > 20.0 ng/mL (4.8-37.3); Vitamin B12 > 2000 pg/mL (232-1245)
[2020-03-24] MEDS: levofloxacin-dextrose 5 % 750 MG/150 ML PREMIX 100 MG IV (17:01)
[2020-03-24] MEDS: ascorbic acid 500 mg Tablet 1000 MG PO (17:02)
[2020-03-24] MEDS: enoxaparin 40 mg/0.4 mL Syringe SUBCUT (17:02)
[2020-03-24] MEDS: remdesivir 100 MG in sodium chloride 0.9% (100 ml) 100 ML IV (19:36)
[2020-03-24] MEDS: metoprolol succinate ER (24 HR) 50 mg Tablet PO (21:33)
[2020-03-25] VITALS (18 sets, daily range): BP systolic 102–131; BP diastolic 62–81; PULSE 68–85; RESP 16–24; TEMP 36.4–37.4; O2SAT 86–94
[2020-03-25 03:59] LABS: Basophils % 0.1 %; Hemoglobin 13.4 g/dL (11.5-15.3); Lymphocytes # 1.7 10^3/uL (0.8-4.8); Lymphocytes % 19.8 %; Mean Corpuscular HGB Conc 34.4 g/dL (30.0-36.0); Mean Corpuscular Hemoglobin 34.4 pg (28.0-34.0); Mean Platelet Volume 9.9 fL (7.4-10.4); Monocytes # 0.3 10^3/uL (0.2-0.9); Monocytes % 3.6 %; Neutrophils # 6.64 10^3/uL (1.8-7.7); Neutrophils % 75.6 %; Nucleated Red Blood Cells % 0 %; Platelet Count 228 10^3/cmm (130-400); Red Cell Distribution Width 12.2 % (12.1-15.1); White Blood Count 8.8 10^3/uL (4.0-10.0)
[2020-03-25 04:26] LABS: NT Pro B Type Natriuretic Pept 218 pg/mL (0-125); Procalcitonin 0.08 ng/mL (0-0.5)
[2020-03-25 04:40] LABS: Alanine Aminotransferase 19 U/L (0-33); Albumin Level 3.2 g/dL (3.5-5.2); Alkaline Phosphatase 86 IU/L (35-105); Anion Gap 14.6 (5-19); Aspartate Amino Transferase 34 U/L (0-32); Blood Urea Nitrogen 24 mg/dL (8-23); C Reactive Protein 114.1 mg/L (0.0-4.9); Calcium 8.6 mg/dL (8.5-10.5); Carbon Dioxide 25 mmol/L (22-29); Chloride 104 mmol/L (98-107); Creatine Phosphokinase 31 U/L (26-192); Glucose 123 mg/dL (65-115); Magnesium 2.3 mg/dL (1.7-2.3); Osmolality Calculated 295 mOsm/kg (285-295); Phosphorus 2.6 mg/dL (2.5-4.5); Potassium 3.6 mmol/L (3.5-5.1); Sodium 140 mmol/L (136-145); Total Bilirubin 0.4 mg/dL (0.15-1.2); Total Protein 6.2 g/dL (6.6-8.7)
[2020-03-25 04:48] LABS: INR 1.11 (0.8-1.2)
[2020-03-25 04:49] LABS: Fibrinogen 289 mg/dL (174-498)
[2020-03-25] MEDS: albuterol 8 gm MDI 2 PUFF INHALATION ×4 (08:15→21:36)
[2020-03-25] MEDS: ascorbic acid 500 mg Tablet 1000 MG PO ×2 (09:28→18:06)
[2020-03-25] MEDS: dexamethasone 4 mg/mL INJ 6 MG IVP (09:28)
[2020-03-25] MEDS: zinc gluconate 50 mg Tablet PO (09:28)
[2020-03-25] MEDS: famotidine 20 mg Tablet PO ×2 (09:29→18:06)
--- NOTE | 2020-03-25 12:48 | PM.PN ---
Subjective Subjective: Interval history: Patient was examined this morning, she to still has complaints of shortness of breath with exertion, is now on 4 L, no chest pain, no lightheadedness or dizziness, having a productive cough Vitals/I&O/Wt Last Vital Signs Temp 98.6 F 03/25/20 12:00 Pulse 80 03/25/20 12:00 Resp 24 H 03/25/20 12:00 BP 131/81 03/25/20 12:00 Pulse Ox 89 L 03/25/20 12:00 03/24/20 03/25/20 03/25/20 22:59 06:59 14:59 Output Total 200 / 450 400 / 850 200 / 200 Balance -200 / -90 -400 / -490 -200 / -200 Physical Exam Const: COMMON NORMALS: no acute distress and patient oriented x3 HENMT: COMMON NORMALS: normocephalic HEAD & SCALP: normocephalic Neck/C-Spine: COMMON NORMALS: no JVD Resp: COMMON NORMALS: normal respiratory effort, No retractions and No use of accessory muscles AUSCULTATION: breath sounds absent Cardio: COMMON NORMALS: no JVD, regular rate, regular rhythm, S1 normal heart sound present and S2 normal heart sound present RATE: regular rate RHYTHM: regular rhythm HEART SOUNDS: S1 normal heart sound present and S2 normal heart sound present GI: COMMON NORMALS: Normal to inspection, nondistended, normoactive bowel sounds present, Soft to palpation, non-tender, No hepatosplenomegaly present, no masses and no bruits PALPATION: Yes Soft to palpation and Yes No hepatosplenomegaly present Extremity: COMMON NORMALS: capillary refill normal, no clubbing, cyanosis or edema, no calf tenderness and no pedal edema Neuro: COMMON NORMALS: patient oriented x3 Psych: COMMON NORMALS: mental status grossly normal Data : 03/25/20 03:43 03/25/20 03:43 Micro: Microbiology 03/25/20 09:30 Bacterial Antigens - Final Urine,Clean Catch 03/23/20 19:10 Blood Culture - Preliminary Blood NEGATIVE TO DATE 03/23/20 18:50 Blood Culture - Preliminary Blood NEGATIVE TO DATE A&P Assessment and plan (1) COVID-19: -Sputum cultures, blood cultures -Remdesivir, Decadron -Levaquin for secondary bacterial infection coverage -Advair, albuterol, oxygen therapy -Has macrocytosis, B12 and folate within normal, peripheral smear pending -Oxygen therapy -Lovenox for DVT prophylaxis -Full code Status: Acute (2) Hypertension: Status: Acute (3) Secondary bacterial pneumonia: Status: Acute (4) Hypoxia: Status: Acute Additional A&P Information Plan for today, get up out of bed, aggressive pulmonary toilet, incentive spirometer, flutter valve use, continue remdesivir, Decadron, Levaquin Attestations Medical Necessity Statement*: Patient requires hospitalization due to acute hypoxic respiratory failure secondary COVID-19 pneumonia and secondary bacterial pneumonia Coding Level of Care Code Acute 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
[2020-03-25] MEDS: guaiFENesin 600 mg Tablet PO (18:06)
[2020-03-25] MEDS: levofloxacin-dextrose 5 % 750 MG/150 ML PREMIX 100 MG IV (18:06)
[2020-03-25] MEDS: enoxaparin 40 mg/0.4 mL Syringe SUBCUT (18:06)
[2020-03-25] MEDS: remdesivir 100 MG in sodium chloride 0.9% (100 ml) 100 ML IV (20:00)
[2020-03-25] MEDS: metoprolol succinate ER (24 HR) 50 mg Tablet PO (21:59)
[2020-03-26] VITALS (14 sets, daily range): BP systolic 121–132; BP diastolic 70–79; PULSE 74–90; RESP 18–21; TEMP 36.6–37; O2SAT 90–96
[2020-03-26 06:10] LABS: Basophils % 0.2 %; Hematocrit 39.9 % (37.0-47.0); Hemoglobin 13.4 g/dL (11.5-15.3); Lymphocytes # 1.9 10^3/uL (0.8-4.8); Lymphocytes % 18.9 %; Mean Corpuscular HGB Conc 33.6 g/dL (30.0-36.0); Mean Corpuscular Hemoglobin 34.1 pg (28.0-34.0); Mean Corpuscular Volume 101.5 fL (81-99); Mean Platelet Volume 9.7 fL (7.4-10.4); Monocytes # 0.3 10^3/uL (0.2-0.9); Monocytes % 3.5 %; Neutrophils # 7.49 10^3/uL (1.8-7.7); Neutrophils % 76.3 %; Nucleated Red Blood Cells % 0 %; Platelet Count 253 10^3/cmm (130-400); Red Blood Count 3.93 10^6/uL (4.1-5.3); Red Cell Distribution Width 12.3 % (12.1-15.1); White Blood Count 9.8 10^3/uL (4.0-10.0)
[2020-03-26 06:31] LABS: Fibrinogen 394 mg/dL (174-498); INR 1.07 (0.8-1.2)
[2020-03-26 06:37] LABS: Lactate (Lactic Acid level) 1.1 mmol/L (0.5-2.2)
[2020-03-26 06:47] LABS: NT Pro B Type Natriuretic Pept 163 pg/mL (0-125); Procalcitonin 0.06 ng/mL (0-0.5)
[2020-03-26 06:58] LABS: Alanine Aminotransferase 16 U/L (0-33); Albumin Level 2.9 g/dL (3.5-5.2); Alkaline Phosphatase 80 IU/L (35-105); Anion Gap 16.7 (5-19); Aspartate Amino Transferase 27 U/L (0-32); Blood Urea Nitrogen 21 mg/dL (8-23); C Reactive Protein 82.6 mg/L (0.0-4.9); Calcium 8.5 mg/dL (8.5-10.5); Carbon Dioxide 22 mmol/L (22-29); Chloride 106 mmol/L (98-107); Creatine Phosphokinase 23 U/L (26-192); Glucose 117 mg/dL (65-115); Magnesium 2.3 mg/dL (1.7-2.3); Osmolality Calculated 296 mOsm/kg (285-295); Phosphorus 2.5 mg/dL (2.5-4.5); Potassium 3.7 mmol/L (3.5-5.1); Sodium 141 mmol/L (136-145); Total Bilirubin 0.4 mg/dL (0.15-1.2); Total Protein 5.9 g/dL (6.6-8.7)
--- NOTE | 2020-03-26 07:00 | XR_ITS ---
WS: [id number] PORTABLE CHEST HISTORY: sob COMPARISON: 03/23/2020 Mild progression of interstitial opacifications at the lung bases since the prior study. There is int erstitial thickening most significant at the LEFT lung base. No pleural effusion or pneumothorax. Cardiac size: Normal. Mediastinum/Aorta: Mild atherosclerosis aorta. No osseous abnormality seen. XR/XR chest 1V portable [id number] IMPRESSION: Continued bilateral lower lobe interstitial opacifications. Mild progression si nce 03/23/2020 chest radiograph.
[2020-03-26] MEDS: albuterol 8 gm MDI 2 PUFF INHALATION ×3 (08:57→20:58)
[2020-03-26] MEDS: dexamethasone 4 mg/mL INJ 6 MG IVP (09:15)
[2020-03-26] MEDS: famotidine 20 mg Tablet PO ×2 (09:15→17:59)
[2020-03-26] MEDS: ascorbic acid 500 mg Tablet 1000 MG PO ×2 (09:15→17:59)
[2020-03-26] MEDS: zinc gluconate 50 mg Tablet PO (09:16)
[2020-03-26] MEDS: guaiFENesin 600 mg Tablet PO ×2 (11:02→17:59)
[2020-03-26] MEDS: enoxaparin 100 mg/mL Syringe 90 MG SUBCUT (13:43)
--- NOTE | 2020-03-26 14:00 | PM.PN ---
Subjective Subjective: Interval history: Patient was examined this morning, she tells me that she still feels short of breath, fatigue, malaise up to 6 L nasal cannula, no fevers, no chills, no chest pain Vitals/I&O/Wt Last Vital Signs Temp 98.4 F 03/26/20 11:42 Pulse 80 03/26/20 11:42 Resp 18 03/26/20 11:42 BP 132/77 03/26/20 11:42 Pulse Ox 94 03/26/20 11:42 03/25/20 03/26/20 03/26/20 22:59 06:59 14:59 Intake Total 120 / 240 Output Total 0 / 200 200 / 200 Balance 120 / 40 -200 / -200 Physical Exam Const: COMMON NORMALS: no acute distress and patient oriented x3 HENMT: COMMON NORMALS: normocephalic HEAD & SCALP: normocephalic Neck/C-Spine: COMMON NORMALS: no JVD Resp: COMMON NORMALS: normal respiratory effort, No retractions and No use of accessory muscles AUSCULTATION: diminished lung sounds bilateral Cardio: COMMON NORMALS: no JVD, regular rate, regular rhythm, S1 normal heart sound present and S2 normal heart sound present RATE: regular rate RHYTHM: regular rhythm HEART SOUNDS: S1 normal heart sound present and S2 normal heart sound present GI: COMMON NORMALS: Normal to inspection, nondistended, normoactive bowel sounds present, Soft to palpation, non-tender, No hepatosplenomegaly present, no masses and no bruits PALPATION: Yes Soft to palpation and Yes No hepatosplenomegaly present Extremity: COMMON NORMALS: capillary refill normal, no clubbing, cyanosis or edema, no calf tenderness and no pedal edema Neuro: COMMON NORMALS: patient oriented x3 Psych: COMMON NORMALS: mental status grossly normal Data : 03/26/20 05:56 03/26/20 05:56 Micro: Microbiology 03/25/20 09:30 Bacterial Antigens - Final Urine,Clean Catch A&P Assessment and plan (1) COVID-19: -Sputum cultures, blood cultures -Remdesivir, Decadron, start convalescent plasma -Broaden antibiotic coverage to vancomycin and Primaxin -Advair, albuterol, oxygen therapy -Has macrocytosis, B12 and folate within normal, peripheral smear pending -Oxygen therapy -Switch to therapeutic Lovenox -Full code Status: Acute (2) Hypertension: Status: Acute (3) Secondary bacterial pneumonia: Status: Acute (4) Hypoxia: Status: Acute Additional A&P Information Plan for today, get up out of bed, aggressive pulmonary toilet, incentive spirometer, flutter valve use, continue remdesivir, Decadron, Levaquin Attestations Medical Necessity Statement*: Patient requires hospitalization for COVID-19 pneumonia, secondary bacterial pneumonia, acute respiratory failure Coding Level of Care Code Acute 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
[2020-03-26] MEDS: vancomycin 1,500 MG/300 ML PIGGYBACK 200 MG IV (14:31)
[2020-03-26] MEDS: metoprolol succinate ER (24 HR) 50 mg Tablet PO (20:47)
[2020-03-26] MEDS: remdesivir 100 MG in sodium chloride 0.9% (100 ml) 100 ML IV (20:47)
[2020-03-27] VITALS (16 sets, daily range): BP systolic 112–136; BP diastolic 68–84; PULSE 15–86; RESP 18–22; TEMP 36.4–37.3; O2SAT 78–95
[2020-03-27] MEDS: enoxaparin 100 mg/mL Syringe 90 MG SUBCUT ×2 (03:06→12:03)
[2020-03-27 06:37] LABS: Basophils % 0.1 %; Hematocrit 39.8 % (37.0-47.0); Hemoglobin 13.5 g/dL (11.5-15.3); Lymphocytes # 1.8 10^3/uL (0.8-4.8); Lymphocytes % 15.8 %; Mean Corpuscular HGB Conc 33.9 g/dL (30.0-36.0); Mean Corpuscular Hemoglobin 34.4 pg (28.0-34.0); Mean Corpuscular Volume 101.5 fL (81-99); Mean Platelet Volume 10.1 fL (7.4-10.4); Monocytes # 0.3 10^3/uL (0.2-0.9); Monocytes % 2.6 %; Neutrophils # 9.11 10^3/uL (1.8-7.7); Nucleated Red Blood Cells % 0 %; Platelet Count 292 10^3/cmm (130-400); Red Blood Count 3.92 10^6/uL (4.1-5.3); Red Cell Distribution Width 12.3 % (12.1-15.1); White Blood Count 11.4 10^3/uL (4.0-10.0)
[2020-03-27 06:57] LABS: D Dimer 0.55 ug/mIFEU (0-0.59)
--- NOTE | 2020-03-27 07:00 | XRR_ITS ---
PROCEDURE INFORMATION: Exam: XR Chest, 1 View Exam date and time: 03/27/2020 6:19 AM Age: 74 years old Clinical indication: Condition or disease; Other: Covid; Shortness of breath; Additional info: SOB TECHNIQUE: Imaging protocol: XR of the chest Views: 1 view. COMPARISON: CR XR chest 1V portable [id number] 03/26/2020 6:37 AM FINDINGS: Lungs: Patchy interstitial and alveolar airspace disease most pronounced within the lung bases left greater than right. Edema and/or pneumonia. Pleural space: Unremarkable. No pleural effusion. No pneumothorax. Heart/Mediastinum: Unremarkable. No cardiomegaly. Bones/joints: Unremarkable. XR/XR chest 1V portable [id number] IMPRESSION: Patchy interstitial and alveolar airspace disease most pronounced within the lung bases left greater than right. Edema and/or pneumonia. Stable
[2020-03-27 07:10] LABS: Alanine Aminotransferase 16 U/L (0-33); Alkaline Phosphatase 86 IU/L (35-105); Anion Gap 13.7 (5-19); Aspartate Amino Transferase 26 U/L (0-32); Blood Urea Nitrogen 21 mg/dL (8-23); C Reactive Protein 67.6 mg/L (0.0-4.9); Calcium 8.5 mg/dL (8.5-10.5); Carbon Dioxide 24 mmol/L (22-29); Chloride 105 mmol/L (98-107); Globulin 3.1 g/dL (1.3-4.6); Glucose 122 mg/dL (65-115); Magnesium 2.3 mg/dL (1.7-2.3); Osmolality Calculated 292 mOsm/kg (285-295); Phosphorus 2.7 mg/dL (2.5-4.5); Potassium 3.7 mmol/L (3.5-5.1); Sodium 139 mmol/L (136-145); Total Bilirubin 0.4 mg/dL (0.15-1.2); Total Protein 6.1 g/dL (6.6-8.7)
[2020-03-27] MEDS: ascorbic acid 500 mg Tablet 1000 MG PO ×2 (08:40→17:14)
[2020-03-27] MEDS: dexamethasone 4 mg/mL INJ 6 MG IVP (08:40)
[2020-03-27] MEDS: guaiFENesin 600 mg Tablet PO ×2 (08:40→17:14)
[2020-03-27] MEDS: famotidine 20 mg Tablet PO ×2 (08:40→17:14)
[2020-03-27] MEDS: zinc gluconate 50 mg Tablet PO (08:41)
[2020-03-27] MEDS: albuterol 8 gm MDI 2 PUFF INHALATION ×3 (08:44→20:10)
[2020-03-27 08:53] LABS: NT Pro B Type Natriuretic Pept 172 pg/mL (0-125); Procalcitonin 0.06 ng/mL (0-0.5)
[2020-03-27 09:04] LABS: Creatine Phosphokinase 22 U/L (26-192)
--- NOTE | 2020-03-27 09:09 | PC.NURSE ---
Patient's IV infiltrated. patient has been stuck several times for new IV. Called ER spoke with Tamara and requested ultrasound for IV. She said she will try to send someone to start IV.
--- NOTE | 2020-03-27 10:17 | PC.NURSE ---
ER called for IV to be placed with ultrasound
--- NOTE | 2020-03-27 11:25 | PM.PN ---
Subjective Subjective: Interval history: Patient was examined this morning, she still complains of generalized fatigue, malaise, shortness of breath with exertion, no fevers, she has not received the convalescent plasma as of yet, will hopefully receive it today Vitals/I&O/Wt Last Vital Signs Temp 98.9 F 03/27/20 07:29 Pulse 77 03/27/20 09:22 Resp 18 03/27/20 08:44 BP 114/79 03/27/20 07:29 Pulse Ox 92 03/27/20 08:44 03/26/20 03/27/20 03/27/20 22:59 06:59 14:59 Intake Total 220 / 320 100 / 420 Output Total 400 / 600 200 / 200 Balance -180 / -280 100 / -180 -200 / -200 Physical Exam Const: COMMON NORMALS: no acute distress and patient oriented x3 HENMT: COMMON NORMALS: normocephalic HEAD & SCALP: normocephalic Neck/C-Spine: COMMON NORMALS: no JVD Resp: COMMON NORMALS: normal respiratory effort, No retractions and No use of accessory muscles AUSCULTATION: diminished lung sounds Cardio: COMMON NORMALS: no JVD, regular rate, regular rhythm, S1 normal heart sound present and S2 normal heart sound present RATE: regular rate RHYTHM: regular rhythm HEART SOUNDS: S1 normal heart sound present and S2 normal heart sound present GI: COMMON NORMALS: Normal to inspection, nondistended, normoactive bowel sounds present, Soft to palpation, non-tender, No hepatosplenomegaly present, no masses and no bruits PALPATION: Yes Soft to palpation and Yes No hepatosplenomegaly present Extremity: COMMON NORMALS: capillary refill normal, no clubbing, cyanosis or edema, no calf tenderness and no pedal edema Neuro: COMMON NORMALS: patient oriented x3 Psych: COMMON NORMALS: mental status grossly normal Data : 03/27/20 05:48 03/27/20 05:48 A&P Assessment and plan (1) COVID-19: -Acute hypoxic respiratory failure secondary to COVID-19 pneumonia, viral pneumonitis, secondary bacterial pneumonia -Sputum cultures, blood cultures -Remdesivir, Decadron, start convalescent plasma -Broaden antibiotic coverage to vancomycin and Primaxin, added azithromycin -Advair, albuterol, oxygen therapy -Has macrocytosis, B12 and folate within normal, peripheral smear no blasts - pulmonary toilet -Oxygen therapy -Switch to therapeutic Lovenox -Full code Status: Acute (2) Hypertension: Status: Acute (3) Secondary bacterial pneumonia: Status: Acute (4) Hypoxia: Status: Acute (5) Acute respiratory failure with hypoxia: Status: Acute Additional A&P Information Plan for today, get up out of bed, aggressive pulmonary toilet, incentive spirometer, flutter valve use, will receive convalescent plasma today, continue broad-spectrum antibiotic therapy, added azithromycin Attestations Medical Necessity Statement*: Patient requires hospitalization for acute hypoxic respiratory failure secondary COVID-19, secondary bacterial pneumonia, early evidence of acute respiratory distress Coding Level of Care Code Acute 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
--- NOTE | 2020-03-27 11:56 | PC.NURSE ---
Let charge nurse know patient still has no IV and we need ultrasound to start IV.
[2020-03-27] MEDS: azithromycin 500 MG in sodium chloride 0.9% 250 ML 250 MG IV (14:15)
[2020-03-27] MEDS: vancomycin 1,500 MG/300 ML PIGGYBACK 200 MG IV (15:59)
[2020-03-27 16:15] LABS: ABG PCO2 35.1 mmHg (35-45); ABG PH Result 7.47 (7.35-7.45); Alveolar-Arterial Oxygen Gradi 6.6 mmHg (5-10); Base Excess ABG 2.2 mmol/L (-2.0-2.0); Blood Gas Allen Test Pos; Blood Gas Operator Identificat AMH; Blood Gas Sample Site Radial, left; Blood Gas Sample Type Arterial; Carboxyhemoglobin 0.7 %THgb (0.4-20.1); HCO3 ABG 25.6 mmol/L (22-26); HGB O2 Sat 90.6 % (95-100); Ionized Calcium Level - ABG 1.2 mmol/L (1.1-1.4); Methemoglobin 0.8 % (0.4-1.5); Oxygen Device NC; PO2 ABG 56.2 mmHg (80.0-100.0); Potassium Level - ABG 3.8 mmol/L (3.5-5.0)
--- NOTE | 2020-03-27 16:30 | PC.NURSE ---
1600 patient's oxygen dropped. RT notified and patient put on contiunous pulse ox. patient's o2 saturation was 78%. patient put on High Flow by RT and oxygen saturation went up to 95% on 35L and 55%. RT notified Dr Bowden. Transfer orders placed for patient to go to VICU.
[2020-03-27] MEDS: remdesivir 100 MG in sodium chloride 0.9% (100 ml) 100 ML IV (21:18)
[2020-03-27] MEDS: metoprolol succinate ER (24 HR) 50 mg Tablet PO (21:19)
--- NOTE | 2020-03-27 22:04 | PC.NURSE ---
Attempt to call for report, RN to call this RN
[2020-03-28] VITALS (235 sets, daily range): BP systolic 93–141; BP diastolic 57–85; PULSE 74–94; RESP 12–42; TEMP 36.6–37.8; O2SAT 82–96
[2020-03-28] MEDS: enoxaparin 100 mg/mL Syringe 90 MG SUBCUT ×2 (00:56→13:59)
[2020-03-28 04:36] LABS: Basophils % 0.2 %; Eosinophils % 0.2 %; Hematocrit 38.3 % (37.0-47.0); Hemoglobin 12.7 g/dL (11.5-15.3); Lymphocytes # 1.6 10^3/uL (0.8-4.8); Lymphocytes % 12.6 %; Mean Corpuscular HGB Conc 33.2 g/dL (30.0-36.0); Mean Corpuscular Hemoglobin 34.1 pg (28.0-34.0); Mean Platelet Volume 10.1 fL (7.4-10.4); Monocytes # 0.3 10^3/uL (0.2-0.9); Neutrophils # 10.41 10^3/uL (1.8-7.7); Neutrophils % 83.3 %; Nucleated Red Blood Cells % 0 %; Platelet Count 277 10^3/cmm (130-400); Red Blood Count 3.72 10^6/uL (4.1-5.3); Red Cell Distribution Width 12.4 % (12.1-15.1); White Blood Count 12.5 10^3/uL (4.0-10.0)
[2020-03-28 04:58] LABS: D Dimer 1.52 ug/mIFEU (0-0.59)
[2020-03-28 05:03] LABS: Albumin Level 2.5 g/dL (3.5-5.2); Blood Urea Nitrogen 21 mg/dL (8-23); C Reactive Protein 81.2 mg/L (0.0-4.9); Calcium 8.2 mg/dL (8.5-10.5); Carbon Dioxide 24 mmol/L (22-29); Chloride 106 mmol/L (98-107); Globulin 3.3 g/dL (1.3-4.6); Glucose 124 mg/dL (65-115); Magnesium 2.3 mg/dL (1.7-2.3); Osmolality Calculated 288 mOsm/kg (285-295); Phosphorus 2.9 mg/dL (2.5-4.5); Sodium 137 mmol/L (136-145); Total Bilirubin 0.4 mg/dL (0.15-1.2); Total Protein 5.8 g/dL (6.6-8.7)
[2020-03-28 05:12] LABS: Anion Gap 11.6 (5-19); Potassium 4.6 mmol/L (3.5-5.1)
[2020-03-28 05:13] LABS: Alanine Aminotransferase 19 U/L (0-33); Alkaline Phosphatase 73 IU/L (35-105); Aspartate Amino Transferase 39 U/L (0-32)
[2020-03-28 05:17] LABS: NT Pro B Type Natriuretic Pept 127 pg/mL (0-125); Procalcitonin 0.07 ng/mL (0-0.5)
[2020-03-28 05:37] LABS: Creatine Phosphokinase 49 U/L (26-192)
--- NOTE | 2020-03-28 06:51 | PC.NURSE ---
Report to [facility]
--- NOTE | 2020-03-28 07:00 | USCV_ITS ---
Guero Estefania Age: 74 Gender: F : 1945 Exam Date: 03/28/2020 13:58 Ordering Phys: Mikael Bowden MD Technologist: Armando Fallon [place] [facility] [place]: SOB BP: 115 / 72 HR: 84 Rhythm: Sinus Technical Quality: Adequate MEASUREMENTS (Male / Female) Normal Values 2D ECHO LV Diastolic Diameter PLAX 2.6 cm 4.2 - 5.9 / 3.9 - 5.3 cm LV Systolic Diameter PLAX 2.0 cm IVS Diastolic Thickness 0.9 cm 0.6 - 1.0 / 0.6 - 0.9 cm IVS Systolic Thickness 1.3 cm LVPW Diastolic Thickness 0.9 cm 0.6 - 1.0 / 0.6 - 0.9 cm LVPW Systolic Thickness 1.3 cm LVOT Diameter 2.2 cm LV Ejection Fraction 2D Teich 48.0 % LV Ejection Fraction MOD 2C 53.1 % LV Ejection Fraction 2C AL 53.3 % LA Diameter 2.9 cm Aorta at Sinotubular Diameter 1.1 cm M-MODE LV Diastolic Diameter MM 4.8 cm 4.2 - 5.9 / 3.9 - 5.3 cm LV Systolic Diameter MM 3.2 cm LV Ejection Fraction MM Teich 63.8 % IVS Diastolic Thickness MM 0.8 cm 0.6 - 1.0 / 0.6 - 0.9 cm IVS Systolic Thickness MM 0.9 cm LVPW Diastolic Thickness MM 1.0 cm 0.6 - 1.0 / 0.6 - 0.9 cm LVPW Systolic Thickness MM 1.9 cm RV Diastolic Diameter MM 1.2 cm Aortic Annulus Diameter 3.2 cm LA Ao Ratio MM 0.9 MV E Point Septal Separation 0.6 cm DOPPLER AV Peak Velocity 129.0 cm/s LVOT Peak Velocity 107.0 cm/s AV Area Cont Eq vti 3.1 cm squared AV Area Cont Eq pk 3.1 cm squared MV Area PHT 5.0 cm squared Mitral E to A Ratio 0.9 MV E' Velocity 39.5 cm/s Mitral E to MV E' Ratio 7.3 Mitral E to LV E' Lateral Ratio 6.8 Mitral E to LV E' Septal Ratio 7.9 TR Peak Velocity 151.0 cm/s TR Peak Gradient 9.1 mmHg TV Peak E Velocity 80.0 cm/s PV Peak Velocity 109.0 cm/s RV Acceleration Time 0.2 s FINDINGS Left Ventricle Normal left ventricular cavity size. Normal left ventricular systolic function. Left ventricular ejection fraction is estimated at 60 %. No diagnostic regional wall motion abnormalities. Normal diastolic function. Right Ventricle Probable normal right ventricular size and systolic function. Normal pulmonary artery pressure. Right Atrium Right atrium not well visualized. Left Atrium Mildly increased left atrial size. Mitral Valve Thickened mitral valve. No mitral valve stenosis. Trace mitral valve regurgitation. Aortic Valve Aortic valve not well visualized. No aortic valve stenosis. Mild aortic valve regurgitation. Tricuspid Valve Tricuspid valve not well visualized. Pulmonic Valve Pulmonic valve not well visualized. Pericardium No pericardial effusion. Aorta Normal sized aortic root. CONCLUSIONS 1. Normal left ventricular cavity size. Normal left ventricular systolic function. Left ventricular ejection fraction is estimated at 60 %. No diagnostic regional wall motion abnormalities. Normal diastolic function. 2. Mild aortic valve regurgitation. 3. No pericardial effusion. 4. Normal pulmonary artery pressure. Eladia Martinez MD (Electronically Signed) Final Date: 28 March 2020 22:36 S
--- NOTE | 2020-03-28 07:00 | XR_ITS ---
WS: [id number] PORTABLE CHEST HISTORY: sob COMPARISON: 03/27/2020 Scattered ill-defined opacifications throughout both lungs with mild progression since the prior stud y. No pleural effusion or pneumothorax. Cardiac size: Normal. Mediastinum/Aorta: Normal mediastinum. No osseous abnormality seen. XR/XR chest 1V portable [id number] IMPRESSION: Mild progression of bilateral pulmonary opacifications.
[2020-03-28] MEDS: azithromycin 500 MG in sodium chloride 0.9% 250 ML 250 MG IV (08:11)
[2020-03-28] MEDS: ascorbic acid 500 mg Tablet 1000 MG PO ×2 (08:12→17:58)
[2020-03-28] MEDS: zinc gluconate 50 mg Tablet PO (08:12)
[2020-03-28] MEDS: dexamethasone 4 mg/mL INJ 6 MG IVP (08:12)
[2020-03-28] MEDS: famotidine 20 mg Tablet PO ×2 (08:12→17:58)
[2020-03-28] MEDS: guaiFENesin 600 mg Tablet PO ×2 (08:12→17:58)
[2020-03-28] MEDS: albuterol 8 gm MDI 2 PUFF INHALATION ×3 (08:28→19:57)
--- NOTE | 2020-03-28 11:13 | PC.NURSE ---
Washed hands and face
--- NOTE | 2020-03-28 11:16 | P.PN_ITS ---
Subjective Subjective: Interval history: Patient was transferred due to worsening respiratory distress. Patient today was comfortable. Requiring supplemental oxygen With high-flow. Medications: Reviewed: Yes Vitals/I&O/Wt Last Vital Signs Vitals reviewed on March 28, 2020 Physical Exam Const: COMMON NORMALS: no acute distress GENERAL APPEARANCE: cooperative and comfortable Eye: COMMON NORMALS: Equal, round and reactive pupils present and EOMs intact bilaterally GENERAL EYE: appearance normal, both eyes and all related structures PUPIL: Yes Equal, round and reactive pupils present Neck/C-Spine: COMMON NORMALS: full ROM, no lymphadenopathy, no JVD and Thyroid normal THYROID: Thyroid normal Lymph: LYMPHATIC: no lymphadenopathy noted Resp: AUSCULTATION: breath sounds absent and diminished lung sounds bilateral Cardio: COMMON NORMALS: no JVD and No clicks present (Cardio) GI: COMMON NORMALS: no bruits Extremity: COMMON NORMALS: normal to inspection, full ROM, capillary refill normal and no calf tenderness Neuro: COMMON NORMALS: CN's II-XII intact bilaterally, moves all extremities and no focal motor deficits Psych: COMMON NORMALS: mental status grossly normal, Normal thought process present and cooperative THOUGHT PROCESS: Normal thought process present Urinary Catheter Management^: Preciado: Cath Placed During This Visit: yes Reason for Continuing Indwelling Catheter: Accurate Measurement of Urinary Output in Critically Ill Patients Urinary Catheter Date of Insertion: 03/29/20 Urinary Catheter Time of Insertion: 12:35 Data : 04/12/20 03:40 04/12/20 16:05 A&P Assessment and plan (1) ARDS (adult respiratory distress syndrome): Status: Acute (2) Septic shock: Status: Acute (3) Secondary bacterial pneumonia: Status: Acute (4) COVID-19: -Acute hypoxic respiratory failure secondary to COVID-19 pneumonia, viral pneumonitis, secondary bacterial pneumonia -Sputum cultures, blood cultures -Remdesivir, Decadron -Supplemental o2 - HFNC -Advair, albuterol, oxygen therapy -Consider pulmonary consult -Oxygen therapy -Continue OAC -Monitor covid labs Status: Acute (5) Sepsis due to severe acute respiratory syndrome coronavirus 2 (SARS-CoV-2): Status: Acute Attestations Medical Necessity Statement*: Continue hospitalization for managementOf COVID- 19 pneumonia. Time Spent in Patient Care: Greater than 35 minutes (>than 50% of time spent in counselling and/or direct pt care on unit) . 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
[2020-03-28] MEDS: sodium chloride 0.9% (100 ml) 100 ML (13:58)
[2020-03-28 14:58] LABS: Vancomycin Trough < 4.0 ug/mL (10-15)
[2020-03-28] MEDS: vancomycin 1,500 MG/300 ML PIGGYBACK 200 MG IV (15:52)
[2020-03-28] MEDS: metoprolol succinate ER (24 HR) 50 mg Tablet PO (23:24)
[2020-03-29] VITALS (177 sets, daily range): BP systolic 107–141; BP diastolic 60–84; PULSE 69–95; RESP 16–38; TEMP 36.6–37.1; O2SAT 85–97
[2020-03-29] MEDS: enoxaparin 100 mg/mL Syringe 90 MG SUBCUT (01:12)
[2020-03-29] MEDS: vancomycin 1,500 MG/300 ML PIGGYBACK 200 MG IV ×2 (03:05→18:28)
[2020-03-29 05:07] LABS: Basophils % 0.1 %; Eosinophils % 0.1 %; Hematocrit 38.4 % (37.0-47.0); Hemoglobin 12.6 g/dL (11.5-15.3); Lymphocytes # 1.4 10^3/uL (0.8-4.8); Lymphocytes % 10.8 %; Mean Corpuscular HGB Conc 32.8 g/dL (30.0-36.0); Mean Corpuscular Hemoglobin 33.6 pg (28.0-34.0); Mean Corpuscular Volume 102.4 fL (81-99); Mean Platelet Volume 9.9 fL (7.4-10.4); Monocytes # 0.2 10^3/uL (0.2-0.9); Monocytes % 1.8 %; Neutrophils # 11.36 10^3/uL (1.8-7.7); Neutrophils % 85.2 %; Nucleated Red Blood Cells % 0 %; Platelet Count 300 10^3/cmm (130-400); Red Blood Count 3.75 10^6/uL (4.1-5.3); Red Cell Distribution Width 12.3 % (12.1-15.1); White Blood Count 13.3 10^3/uL (4.0-10.0)
[2020-03-29 05:35] LABS: Alanine Aminotransferase 14 U/L (0-33); Albumin Level 2.7 g/dL (3.5-5.2); Alkaline Phosphatase 79 IU/L (35-105); Anion Gap 11.9 (5-19); Aspartate Amino Transferase 26 U/L (0-32); Blood Urea Nitrogen 21 mg/dL (8-23); C Reactive Protein 110.5 mg/L (0.0-4.9); Calcium 8.2 mg/dL (8.5-10.5); Carbon Dioxide 26 mmol/L (22-29); Chloride 106 mmol/L (98-107); Globulin 3.1 g/dL (1.3-4.6); Glucose 107 mg/dL (65-115); Magnesium 2.3 mg/dL (1.7-2.3); Osmolality Calculated 293 mOsm/kg (285-295); Phosphorus 2.5 mg/dL (2.5-4.5); Potassium 3.9 mmol/L (3.5-5.1); Sodium 140 mmol/L (136-145); Total Bilirubin 0.5 mg/dL (0.15-1.2); Total Protein 5.8 g/dL (6.6-8.7)
[2020-03-29 05:40] LABS: NT Pro B Type Natriuretic Pept 261 pg/mL (0-125)
[2020-03-29 05:51] LABS: Creatine Phosphokinase 29 U/L (26-192)
[2020-03-29] MEDS: albuterol 8 gm MDI 2 PUFF INHALATION ×3 (08:33→20:04)
[2020-03-29] MEDS: azithromycin 500 MG in sodium chloride 0.9% 250 ML 250 MG IV (08:42)
[2020-03-29] MEDS: dexamethasone 4 mg/mL INJ 6 MG IVP (08:43)
[2020-03-29] MEDS: guaiFENesin 600 mg Tablet PO ×2 (08:43→18:29)
[2020-03-29] MEDS: famotidine 20 mg Tablet PO ×2 (08:43→18:29)
[2020-03-29] MEDS: zinc gluconate 50 mg Tablet PO (08:43)
[2020-03-29] MEDS: ascorbic acid 500 mg Tablet 1000 MG PO ×2 (08:43→18:29)
--- NOTE | 2020-03-29 11:45 | PM.PN ---
Subjective Subjective: Interval history: still have significant SOB as well as respiratory distress,she is tachypenic, has T max :100 Her other vitals and labs have been reviewed. Medications: Reviewed: Yes Vitals/I&O/Wt Last Vital Signs Temp 98.7 F 03/29/20 08:00 Pulse 88 03/29/20 11:00 Resp 22 H 03/29/20 11:00 BP 128/75 03/29/20 11:00 Pulse Ox 88 L 03/29/20 11:00 03/28/20 03/29/20 03/29/20 22:59 06:59 14:59 Intake Total 870 / 1870 100 / 1970 120 / 120 Output Total 500 / 500 Balance 870 / 1870 -400 / 1470 120 / 120 Physical Exam Const: COMMON NORMALS: patient oriented x3 HENMT: COMMON NORMALS: normocephalic, atraumatic and hearing grossly normal bilaterally HEAD & SCALP: normocephalic and atraumatic Chest: CHEST: Yes Symmetrical chest wall rise Resp: OTHER: B/L Basal Crackles present in both lungs brand. Cardio: COMMON NORMALS: regular rate, regular rhythm, S1 normal heart sound present, S2 normal heart sound present, No gallops present (Cardio), No murmurs present (Cardio), No rub (Cardio) and Peripheral pulses 2+ throughout RATE: regular rate RHYTHM: regular rhythm HEART SOUNDS: S1 normal heart sound present and S2 normal heart sound present PERIPHERAL PULSES: Peripheral pulses 2+ throughout GI: COMMON NORMALS: Normal to inspection, nondistended, normoactive bowel sounds present, Soft to palpation, non-tender, No hepatosplenomegaly present and no masses AUSCULTATION: Yes normoactive bowel sounds PALPATION: Yes Soft to palpation and Yes No hepatosplenomegaly present RECTAL EXAM: deferred Extremity: COMMON NORMALS: no clubbing, cyanosis or edema and no pedal edema Neuro: COMMON NORMALS: patient oriented x3 Data : 03/29/20 04:20 03/29/20 04:20 Micro: Microbiology 03/23/20 19:10 Blood Culture - Final Blood NO GROWTH AFTER 5 DAYS 03/23/20 18:50 Blood Culture - Final Blood NO GROWTH AFTER 5 DAYS A&P Assessment and plan (1) COVID-19: -Acute hypoxic respiratory failure secondary to COVID-19 pneumonia, viral pneumonitis, secondary bacterial pneumonia -Sputum cultures, blood cultures -Remdesivir, Decadron, start -S/P 2 bags convalescent plasma -Continue vancomycin and Primaxin, added azithromycin -Advair, albuterol, oxygen therapy -Has macrocytosis, B12 and folate within normal, peripheral smear no blasts - pulmonary toilet -Oxygen therapy -Eliquis 2.5 mg q12 h daily -Lasix as needed Status: Acute (2) Hypertension: Status: Acute (3) Secondary bacterial pneumonia: Status: Acute (4) Hypoxia: Status: Acute (5) Acute respiratory failure with hypoxia: Status: Acute Additional A&P Information Plan for today, get up out of bed, aggressive pulmonary toilet, incentive spirometer, flutter valve use, will receive convalescent plasma today, continue broad-spectrum antibiotic therapy, added azithromycin Attestations Medical Necessity Statement*: Patient needs to be in hospital for the management of R/F 2/2 COVID PNA Coding Level of 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
[2020-03-29] MEDS: FUROsemide 10 mg/mL SDV 2mL 20 MG IVP ×2 (12:35→21:50)
--- NOTE | 2020-03-29 12:49 | PC.SOCIAL ---
Provided pt's son, Eb with IMM. [phone]. Signed, dated, timed and placed in chart.
[2020-03-29 15:39] LABS: D Dimer 0.85 ug/mIFEU (0-0.59)
[2020-03-29] MEDS: apixaban 5 mg Tablet 2.5 MG PO (18:28)
[2020-03-29] MEDS: metoprolol succinate ER (24 HR) 50 mg Tablet PO (22:04)
[2020-03-30] VITALS (104 sets, daily range): BP systolic 90–119; BP diastolic 50–73; PULSE 67–85; RESP 16–34; TEMP 36.6–36.9; O2SAT 83–96
[2020-03-30] MEDS: vancomycin 1,500 MG/300 ML PIGGYBACK 200 MG IV ×2 (03:57→19:13)
[2020-03-30 05:41] LABS: Basophils % 0.1 %; Hematocrit 38.6 % (37.0-47.0); Hemoglobin 13.3 g/dL (11.5-15.3); Lymphocytes # 1.2 10^3/uL (0.8-4.8); Lymphocytes % 8.4 %; Mean Corpuscular HGB Conc 34.5 g/dL (30.0-36.0); Mean Corpuscular Hemoglobin 34.3 pg (28.0-34.0); Mean Corpuscular Volume 99.5 fL (81-99); Mean Platelet Volume 10.6 fL (7.4-10.4); Monocytes # 0.2 10^3/uL (0.2-0.9); Monocytes % 1.5 %; Neutrophils # 12.09 10^3/uL (1.8-7.7); Neutrophils % 88.1 %; Nucleated Red Blood Cells % 0 %; Platelet Count 321 10^3/cmm (130-400); Red Blood Count 3.88 10^6/uL (4.1-5.3); Red Cell Distribution Width 12.1 % (12.1-15.1); White Blood Count 13.7 10^3/uL (4.0-10.0)
[2020-03-30 06:08] LABS: Alanine Aminotransferase 16 U/L (0-33); Albumin Level 2.9 g/dL (3.5-5.2); Alkaline Phosphatase 84 IU/L (35-105); Aspartate Amino Transferase 29 U/L (0-32); Blood Urea Nitrogen 21 mg/dL (8-23); Calcium 8.4 mg/dL (8.5-10.5); Carbon Dioxide 26 mmol/L (22-29); Chloride 101 mmol/L (98-107); Globulin 3.3 g/dL (1.3-4.6); Glucose 120 mg/dL (65-115); Magnesium 2.2 mg/dL (1.7-2.3); Osmolality Calculated 290 mOsm/kg (285-295); Sodium 138 mmol/L (136-145); Total Bilirubin 0.5 mg/dL (0.15-1.2); Total Protein 6.2 g/dL (6.6-8.7)
[2020-03-30 06:20] LABS: Anion Gap 14.7 (5-19); Potassium 3.7 mmol/L (3.5-5.1)
[2020-03-30 06:59] LABS: ABG PCO2 36.2 mmHg (35-45); ABG PH Result 7.48 (7.35-7.45); Arterial Blood Gas Hematocrit 43.8 % (37-47); Base Excess ABG 3.4 mmol/L (-2.0-2.0); Blood Gas Sample Type Arterial; Carboxyhemoglobin 0.6 %THgb (0.4-20.1); HCO3 ABG 26.8 mmol/L (22-26); HGB O2 Sat 90.7 % (95-100); Ionized Calcium Level - ABG 1.2 mmol/L (1.1-1.4); Methemoglobin 0.9 % (0.4-1.5); Oxygen Saturation ABG 92.1; PO2 ABG 55.4 mmHg (80.0-100.0); Potassium Level - ABG 3.8 mmol/L (3.5-5.0); Total Hemoglobin 14.3 g/dL (12-16)
[2020-03-30 07:00] LABS: Blood Gas Operator Identificat HARKR; Blood Gas Sample Site Brachial, left
[2020-03-30] MEDS: apixaban 5 mg Tablet 2.5 MG PO ×2 (08:20→17:30)
[2020-03-30] MEDS: zinc gluconate 50 mg Tablet PO (08:20)
[2020-03-30] MEDS: ascorbic acid 500 mg Tablet 1000 MG PO ×2 (08:20→17:30)
[2020-03-30] MEDS: famotidine 20 mg Tablet PO ×2 (08:20→17:30)
[2020-03-30] MEDS: guaiFENesin 600 mg Tablet PO ×2 (08:20→17:30)
[2020-03-30] MEDS: dexamethasone 4 mg/mL INJ 6 MG IVP (08:21)
[2020-03-30] MEDS: FUROsemide 10 mg/mL SDV 2mL 20 MG IVP ×2 (08:21→17:30)
[2020-03-30] MEDS: albuterol 8 gm MDI 2 PUFF INHALATION ×2 (08:27→20:19)
[2020-03-30] MEDS: azithromycin 500 MG in sodium chloride 0.9% 250 ML 250 MG IV (08:34)
--- NOTE | 2020-03-30 09:27 | P.PN_ITS ---
Subjective Subjective: Interval history: Ms.Collins Mac is still extremely Short of Breath. She was switched TO BIPAP this afternoon and the plan is to continue to monitor her on BIPAP and HHFONC. But she is low threshold for intubation. She has remained Afebrile other vitals and labs have been reviewed. Medications: Reviewed: Yes Vitals/I&O/Wt Last Vital Signs Temp 98.4 F 03/29/20 22:10 Pulse 70 03/30/20 08:40 Resp 18 03/30/20 08:31 BP 112/64 03/30/20 06:05 Pulse Ox 90 03/30/20 08:40 03/29/20 03/30/20 03/30/20 22:59 06:59 14:59 Intake Total 340 / 560 1050 / 1610 Output Total 450 / 2050 1350 / 3400 Balance -110 / -1490 -300 / -1790 Physical Exam Const: COMMON NORMALS: patient oriented x3 HENMT: COMMON NORMALS: normocephalic, atraumatic and hearing grossly normal bilaterally HEAD & SCALP: normocephalic and atraumatic Chest: COMMONS NORMALS: normal inspection of the chest and normal palpation of entire chest wall CHEST: Yes Symmetrical chest wall rise Resp: COMMON NORMALS: clear to auscultation bilaterally EFFORT & INSPECTION: Yes symmetric chest movement AUSCULTATION: clear to auscultation bilaterally OTHER: B/L Basal Crackles present in both lungs brand. Cardio: COMMON NORMALS: regular rate, regular rhythm, S1 normal heart sound present, S2 normal heart sound present, No gallops present (Cardio), No murmurs present (Cardio), No rub (Cardio) and Peripheral pulses 2+ throughout RATE: regular rate RHYTHM: regular rhythm HEART SOUNDS: S1 normal heart sound present and S2 normal heart sound present PERIPHERAL PULSES: Peripheral p ulses 2+ throughout GI: COMMON NORMALS: Normal to inspection, nondistended, normoactive bowel sounds present, Soft to palpation, non-tender, No hepatosplenomegaly present and no masses AUSCULTATION: Yes normoactive bowel sounds PALPATION: Yes Soft to palpation and Yes No hepatosplenomegaly present RECTAL EXAM: deferred Extremity: COMMON NORMALS: no clubbing, cyanosis or edema and no pedal edema Neuro: COMMON NORMALS: patient oriented x3 Urinary Catheter Management^: Preciado: Cath Placed During This Visit: yes Reason for Continuing Indwelling Catheter: Accurate Measurement of Urinary Output in Critically Ill Patients Urinary Catheter Date of Insertion: 03/29/20 Urinary Catheter Time of Insertion: 12:35 Data : 03/30/20 05:10 03/30/20 05:10 A&P Assessment and plan (1) ARDS (adult respiratory distress syndrome): Acute hypoxic respiratory failure secondary to ARDS 2/2 COVID-19 pneumonia, viral pneumonitis, secondary bacterial pneumonia -Blood cultures:NTD -Sputum cultures: -urine Culture: -Urine Bacterial Antigen :Negative -Remdesivir -Decadron -Ascorbic acid -Zinc -S/P 2 bags convalescent plasma -Continue vancomycin and Primaxin, added azithromycin -Advair, albuterol -Has macrocytosis, B12 and folate within normal, peripheral smear no blasts - pulmonary toilet -Oxygen therapy -Eliquis 2.5 mg q12 h daily -Lasix as needed Status: Acute (2) COVID-19: -Acute hypoxic respiratory failure secondary to ARDS 2/2 COVID-19 pneumonia, viral pneumonitis, secondary bacterial pneumonia -Blood cultures:NTD -Sputum cultures: -urine Culture: -Urine Bacterial Antigen :Negative -2 D Echo: Normal LVEF : 60 % NO RWMA -Remdesivir -Decadron -Ascorbic acid -Zinc -S/P 2 bags convalescent plasma -Continue vancomycin and Primaxin, added azithromycin -Advair, albuterol -Has macrocytosis, B12 and folate within normal, peripheral smear no blasts - pulmonary toilet -Oxygen therapy -Eliquis 2.5 mg q12 h daily -Lasix as needed Status: Acute (3) Hypertension: Status: Acute (4) Secondary bacterial pneumonia: Status: Acute (5) Hypoxia: Status: Acute (6) Acute respiratory failure with hypoxia: Status: Acute Additional A&P Information Plan for today, get up out of bed, aggressive pulmonary toilet, incentive spirometer, flutter valve use, will receive convalescent plasma today, continue broad-spectrum antibiotic therapy, added azithromycin Attestations Medical Necessity Statement*: Patient needs to be in hospital for the management of R/F 2/2 ARDS 2/2 COVID PNA Coding Level of Care Code Acute [employer] for [facility] Diagnoses ARDS (adult respiratory distress syndrome) J80 COVID-19 U07.1 Hypertension I10 Secondary bacterial pneumonia J15.9 Hypoxia R09.02 Acute respiratory failure with hypoxia J96.01
[2020-03-30] MEDS: LORazepam 2 mg/mL INJ 1 mL 0.5 MG IVP ×2 (10:40→23:58)
[2020-03-30 18:49] LABS: Vancomycin Trough 10.2 ug/mL (10-15)
[2020-03-30] MEDS: metoprolol succinate ER (24 HR) 50 mg Tablet PO (21:28)
[2020-03-31] VITALS (37 sets, daily range): BP systolic 107–142; BP diastolic 52–78; PULSE 68–103; RESP 18–39; TEMP 37.1; O2SAT 84–93
[2020-03-31 04:41] LABS: Basophils % 0.2 %; Hematocrit 38.5 % (37.0-47.0); Hemoglobin 13.3 g/dL (11.5-15.3); Lymphocytes % 7.8 %; Mean Corpuscular HGB Conc 34.5 g/dL (30.0-36.0); Mean Corpuscular Hemoglobin 34.2 pg (28.0-34.0); Mean Platelet Volume 10.4 fL (7.4-10.4); Monocytes # 0.3 10^3/uL (0.2-0.9); Monocytes % 2.1 %; Neutrophils # 11.43 10^3/uL (1.8-7.7); Neutrophils % 88.7 %; Nucleated Red Blood Cells % 0 %; Platelet Count 290 10^3/cmm (130-400); Red Blood Count 3.89 10^6/uL (4.1-5.3); White Blood Count 12.9 10^3/uL (4.0-10.0)
[2020-03-31 05:03] LABS: ABG PCO2 37.3 mmHg (35-45); ABG PH Result 7.48 (7.35-7.45); Arterial Blood Gas Hematocrit 41.7 % (37-47); Base Excess ABG 4.4 mmol/L (-2.0-2.0); Blood Gas Sample Type Arterial; Carboxyhemoglobin 0.7 %THgb (0.4-20.1); HGB O2 Sat 90.5 % (95-100); Ionized Calcium Level - ABG 1.2 mmol/L (1.1-1.4); Methemoglobin 0.9 % (0.4-1.5); Oxygen Saturation ABG 91.9; PO2 ABG 55.5 mmHg (80.0-100.0); Potassium Level - ABG 3.6 mmol/L (3.5-5.0); Total Hemoglobin 13.6 g/dL (12-16)
[2020-03-31 05:04] LABS: Alveolar-Arterial Oxygen Gradi 47.5 mmHg (5-10); Blood Gas Operator Identificat HARKR; Blood Gas Sample Site Brachial, left; Oxygen Device BIPAP
[2020-03-31 05:11] LABS: Alanine Aminotransferase 17 U/L (0-33); Albumin Level 2.6 g/dL (3.5-5.2); Alkaline Phosphatase 83 IU/L (35-105); Anion Gap 13.6 (5-19); Aspartate Amino Transferase 29 U/L (0-32); Carbon Dioxide 26 mmol/L (22-29); Chloride 102 mmol/L (98-107); Globulin 3.4 g/dL (1.3-4.6); Glucose 120 mg/dL (65-115); Magnesium 2.4 mg/dL (1.7-2.3); Potassium 3.6 mmol/L (3.5-5.1); Sodium 138 mmol/L (136-145); Total Bilirubin 0.4 mg/dL (0.15-1.2)
[2020-03-31 06:00] LABS: Blood Urea Nitrogen 27 mg/dL (8-23); Calcium 8.4 mg/dL (8.5-10.5); Osmolality Calculated 292 mOsm/kg (285-295)
[2020-03-31] MEDS: dexamethasone 4 mg/mL INJ 6 MG IVP (08:17)
[2020-03-31] MEDS: vancomycin 1,500 MG/300 ML PIGGYBACK 200 MG IV ×2 (08:17→20:01)
[2020-03-31] MEDS: albuterol 8 gm MDI 2 PUFF INHALATION ×2 (09:19→21:01)
[2020-03-31] MEDS: ascorbic acid 500 mg Tablet 1000 MG PO ×2 (09:26→18:11)
[2020-03-31] MEDS: zinc gluconate 50 mg Tablet PO (09:26)
[2020-03-31] MEDS: famotidine 20 mg Tablet PO ×2 (09:27→18:11)
[2020-03-31] MEDS: guaiFENesin 600 mg Tablet PO ×2 (09:27→18:11)
[2020-03-31] MEDS: apixaban 5 mg Tablet 2.5 MG PO ×2 (09:27→18:11)
--- NOTE | 2020-03-31 09:52 | XRR_ITS ---
PROCEDURE INFORMATION: Exam: XR Chest, 1 View Exam date and time: 03/31/2020 12:35 PM Age: 74 years old Clinical indication: Shortness of breath; Additional info: Pna TECHNIQUE: Imaging protocol: XR of the chest Views: 1 view. COMPARISON: CR XR chest 1V portable [id number] 03/28/2020 6:38 AM FINDINGS: Lungs: Multifocal bilateral pulmonary infiltrates appear mildly more prominent at the lung bases when compared to the prior study. Pleural space: Unremarkable. No pleural effusion. No pneumothorax. Heart/Mediastinum: Unremarkable. No cardiomegaly. Bones/joints: Unremarkable. XR/XR chest 1V portable [id number] IMPRESSION: Multifocal bilateral pulmonary infiltrates appear mildly more prominent at the lung bases when compared to the prior study.
[2020-03-31] MEDS: FUROsemide 10 mg/mL SDV 2mL 20 MG IVP ×2 (10:29→22:31)
[2020-03-31] MEDS: azithromycin 500 MG in sodium chloride 0.9% 250 ML 250 MG IV (10:59)
--- NOTE | 2020-03-31 18:37 | P.PN_ITS ---
Subjective Subjective: Interval history: fells fatigued and and still has significant SOB.She has been managing to avoid intubation by being on BIPAP as well HHFONC.Still she is at high risk for intubation. She has remained afebrile.Her other vitals and labs have been reviewed. Medications: Reviewed: Yes Vitals/I&O/Wt Last Vital Signs Temp 98.7 F 03/31/20 16:00 Pulse 84 03/31/20 17:17 Resp 22 H 03/31/20 17:17 BP 115/52 03/31/20 15:00 Pulse Ox 89 L 03/31/20 17:17 03/31/20 03/31/20 03/31/20 06:59 14:59 22:59 Intake Total 220 / 1290 1050 / 1050 100 / 1150 Output Total 700 / 2900 700 / 700 Balance -480 / -1610 350 / 350 100 / 450 Physical Exam Const: COMMON NORMALS: patient oriented x3 HENMT: COMMON NORMALS: normocephalic and atraumatic HEAD & SCALP: normocephalic and atraumatic Chest: CHEST: Yes Symmetrical chest wall rise Resp: COMMON NORMALS: clear to auscultation bilaterally EFFORT & INSPECTION: Yes symmetric chest movement AUSCULTATION: clear to auscultation bilaterally Cardio: COMMON NORMALS: regular rate, regular rhythm, S1 normal heart sound present, S2 normal heart sound present, No gallops present (Cardio), No murmurs present (Cardio), No rub (Cardio) and Peripheral pulses 2+ throughout RATE: regular rate RHYTHM: regular rhythm HEART SOUNDS: S1 normal heart sound present and S2 normal heart sound present PERIPHERAL PULSES: Peripheral pulses 2+ throughout GI: COMMON NORMALS: Normal to inspection, nondistended, normoactive bowel sounds present, Soft to palpation, non-tender, No hepatosplenomegaly present and no masses AUSCULTATION: Yes normoactive bowel sounds PALPATION: Yes Soft to palpation and Yes No hepatosplenomegaly present RECTAL EXAM: deferred Extremity: COMMON NORMALS: no clubbing, cyanosis or edema and no pedal edema Neuro: COMMON NORMALS: patient oriented x3 Urinary Catheter Management^: Preciado: Cath Placed During This Visit: yes Reason for Continuing Indwelling Catheter: Accurate Measurement of Urinary Output in Critically Ill Patients Urinary Catheter Date of Insertion: 03/29/20 Urinary Catheter Time of Insertion: 12:35 Data : 03/31/20 03:50 03/31/20 03:50 A&P Assessment and plan (1) ARDS (adult respiratory distress syndrome): Acute hypoxic respiratory failure secondary to ARDS 2/2 COVID-19 pneumonia, viral pneumonitis, secondary bacterial pneumonia -Blood cultures:NTD -Sputum cultures: -urine Culture: -Urine Bacterial Antigen :Negative -Remdesivir -Decadron -Ascorbic acid -Zinc -S/P 2 bags convalescent plasma -Continue vancomycin and Primaxin, added azithromycin -Advair, albuterol -Has macrocytosis, B12 and folate within normal, peripheral smear no blasts - pulmonary toilet -Oxygen therapy -Eliquis 2.5 mg q12 h daily -Lasix as needed Status: Acute (2) COVID-19: -Acute hypoxic respiratory failure secondary to ARDS 2/2 COVID-19 pneumonia, viral pneumonitis, secondary bacterial pneumonia -Blood cultures:NTD -Sputum cultures: -urine Culture: -Urine Bacterial Antigen :Negative -2 D Echo: Normal LVEF : 60 % NO RWMA -Remdesivir -Decadron -Ascorbic acid -Zinc -S/P 2 bags convalescent plasma -Continue vancomycin and Primaxin, added azithromycin -Advair, albuterol -Has macrocytosis, B12 and folate within normal, peripheral smear no blasts - pulmonary toilet -Oxygen therapy -Eliquis 2.5 mg q12 h daily -Lasix as needed Status: Acute (3) Hypertension: Status: Acute (4) Secondary bacterial pneumonia: Status: Acute (5) Hypoxia: Status: Acute (6) Acute respiratory failure with hypoxia: Status: Acute Additional A&P Information DVT PPX : On Eliquis 2.5 mg q12 h daily Code Status :Full code Disposition :Home Attestations Medical Necessity Statement*: Patient needs to be in hospital for the management of R/F 2/2 COVID PNA 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
[2020-03-31] MEDS: metoprolol succinate ER (24 HR) 50 mg Tablet PO (20:01)
[2020-04-01] VITALS (68 sets, daily range): BP systolic 61–130; BP diastolic 40–90; PULSE 64–94; RESP 16–40; TEMP 36.5–36.9; O2SAT 86–94
--- NOTE | 2020-04-01 00:26 | PC.NURSE ---
PT IS RESTING IN BED. PT DENIES PAIN. O2 SATURATION STARTED TO GO INTO THE MID TO LOW 80'S. RT PUT PT ON BIPAP. PT STATING 88-90% AT THIS TIME. WILL CONTINUE TO MONITOR.
[2020-04-01 04:06] LABS: ABG PCO2 35.3 mmHg (35-45); ABG PH Result 7.51 (7.35-7.45); Arterial Blood Gas Hematocrit 43.5 % (37-47); Base Excess ABG 5.2 mmol/L (-2.0-2.0); Blood Gas Allen Test Pos; Blood Gas Sample Type Arterial; Carboxyhemoglobin 0.8 %THgb (0.4-20.1); HCO3 ABG 28.2 mmol/L (22-26); HGB O2 Sat 82.2 % (95-100); Ionized Calcium Level - ABG 1.2 mmol/L (1.1-1.4); Methemoglobin 0.7 % (0.4-1.5); Oxygen Saturation ABG 83.5; PO2 ABG 44.8 mmHg (80.0-100.0); Potassium Level - ABG 3.3 mmol/L (3.5-5.0); Total Hemoglobin 14.2 g/dL (12-16)
[2020-04-01 04:07] LABS: Alveolar-Arterial Oxygen Gradi 82.1 mmHg (5-10); Blood Gas Operator Identificat CAK; Blood Gas Sample Site Radial, left; Oxygen Device HAG
[2020-04-01 06:29] LABS: Basophils % 0.1 %; Eosinophils % 0.1 %; Hematocrit 39.6 % (37.0-47.0); Hemoglobin 13.7 g/dL (11.5-15.3); Lymphocytes # 1.3 10^3/uL (0.8-4.8); Lymphocytes % 8.2 %; Mean Corpuscular HGB Conc 34.6 g/dL (30.0-36.0); Mean Corpuscular Hemoglobin 33.7 pg (28.0-34.0); Mean Corpuscular Volume 97.5 fL (81-99); Mean Platelet Volume 9.7 fL (7.4-10.4); Monocytes # 0.3 10^3/uL (0.2-0.9); Monocytes % 1.6 %; Neutrophils # 13.66 10^3/uL (1.8-7.7); Nucleated Red Blood Cells % 0 %; Platelet Count 248 10^3/cmm (130-400); Red Blood Count 4.06 10^6/uL (4.1-5.3); Red Cell Distribution Width 12.1 % (12.1-15.1); White Blood Count 15.4 10^3/uL (4.0-10.0)
--- NOTE | 2020-04-01 06:46 | PC.NURSE ---
PT IS RESTING IN BED. PT DENIES PAIN. WILL CONTINUE TO MONITOR.
[2020-04-01 06:52] LABS: D Dimer 5.81 ug/mIFEU (0-0.59)
[2020-04-01 07:18] LABS: Alanine Aminotransferase 19 U/L (0-33); Albumin Level 2.9 g/dL (3.5-5.2); Alkaline Phosphatase 99 IU/L (35-105); Anion Gap 14.8 (5-19); Aspartate Amino Transferase 25 U/L (0-32); Blood Urea Nitrogen 25 mg/dL (8-23); Calcium 8.3 mg/dL (8.5-10.5); Carbon Dioxide 26 mmol/L (22-29); Chloride 102 mmol/L (98-107); Globulin 3.3 g/dL (1.3-4.6); Glucose 104 mg/dL (65-115); Magnesium 2.2 mg/dL (1.7-2.3); Osmolality Calculated 293 mOsm/kg (285-295); Potassium 3.8 mmol/L (3.5-5.1); Sodium 139 mmol/L (136-145); Total Bilirubin 0.5 mg/dL (0.15-1.2); Total Protein 6.2 g/dL (6.6-8.7)
[2020-04-01] MEDS: dexamethasone 4 mg/mL INJ 6 MG IVP (07:52)
[2020-04-01] MEDS: vancomycin 1,500 MG/300 ML PIGGYBACK 200 MG IV (07:53)
[2020-04-01] MEDS: zinc gluconate 50 mg Tablet PO (08:43)
[2020-04-01] MEDS: guaiFENesin 600 mg Tablet PO (08:43)
[2020-04-01] MEDS: famotidine 20 mg Tablet PO (08:43)
[2020-04-01] MEDS: albuterol 8 gm MDI 2 PUFF INHALATION (08:43)
[2020-04-01] MEDS: ascorbic acid 500 mg Tablet 1000 MG PO ×2 (08:44→18:20)
[2020-04-01] MEDS: apixaban 5 mg Tablet 2.5 MG PO ×2 (08:44→18:17)
[2020-04-01] MEDS: FUROsemide 10 mg/mL SDV 4mL 40 MG IVP (09:16)
[2020-04-01] MEDS: LORazepam 2 mg/mL INJ 1 mL 1 MG IVP (09:16)
[2020-04-01] MEDS: azithromycin 500 MG in sodium chloride 0.9% 250 ML 250 MG IV (09:57)
[2020-04-01] MEDS: succinylcholine 20 mg/mL SDV 10mL 100 MG IVP (12:22)
[2020-04-01] MEDS: dexmedetomidine 400 MCG in sodium chloride 0.9% (100 ml) 100 ML 7 MCG IV (12:26)
--- NOTE | 2020-04-01 13:00 | XRR_ITS ---
PROCEDURE INFORMATION: Exam: XR Chest, 1 View Exam date and time: 04/01/2020 1:23 PM Age: 74 years old Clinical indication: Device placement; Other: Et and ng placement; Additional info: Et tube/og tube placement TECHNIQUE: Imaging protocol: XR of the chest Views: Frontal portable upright view of the chest. COMPARISON: CR (CHEST, ) 03/31/2020 12:46 PM FINDINGS: Tubes, catheters and devices: The endotracheal tube tip is approximately 3 cm above the loni. The feeding tube enters the stomach with the tip in the upper gastric body. EKG leads are present overlying the chest. Lungs: The pulmonary vasculature is obscured by increased lung attenuation. Increased heterogeneous air space opacities in the bilateral lungs. Pleural space: No definite pleural effusion. No pneumothorax. Heart/Mediastinum: The heart is normal in size and contour. Mediastinum: Stable. Bones/joints: Stable. Lower cervical spinal anterior fixation hardware. XR/XR chest 1V portable [id number] IMPRESSION: 1. Endotracheal tube placement as above. 2. Increased bilateral pulmonary infiltrates, progressive pneumonitis not excluded. Clinical correlation is recommended. 3. Feeding tube placement as above.
--- NOTE | 2020-04-01 13:48 | P.PN_ITS ---
Subjective Subjective: Interval history: failed BIPAP as well as HHFONC ,she was getting tachypenic as well as obtunded. She was intubated and placed on mechanical ventilation.She has remained afebrile. Her other vitals and labs have been reviewed. Medications: Reviewed: Yes Vitals/I&O/Wt Last Vital Signs Temp 98.4 F 04/01/20 08:00 Pulse 66 04/01/20 13:15 Resp 19 H 04/01/20 12:40 BP 61/40 04/01/20 13:15 Pulse Ox 93 04/01/20 13:15 03/31/20 04/01/20 04/01/20 22:59 06:59 14:59 Intake Total 750 / 1800 220 / 2020 914.517 / 914.517 Output Total 225 / 925 1500 / 2425 1325 / 1325 Balance 525 / 875 -1280 / -405 -410.483 / -410.483 Physical Exam Narrative: EXAM NARRATIVE: Intubated and sedated off sedation GCS is 10T HENMT: COMMON NORMALS: normocephalic and atraumatic HEAD & SCALP: normocephalic and atraumatic Chest: CHEST: Yes Symmetrical chest wall rise Resp: OTHER: Diminished air entry B/L. Cardio: COMMON NORMALS: regular rate, regular rhythm, S1 normal heart sound present, S2 normal heart sound present, No gallops present (Cardio), No murmurs present (Cardio), No rub (Cardio) and Peripheral pulses 2+ throughout RATE: regular rate RHYTHM: regular rhythm HEART SOUNDS: S1 normal heart sound present and S2 normal heart sound present PERIPHERAL PULSES: Peripheral pulses 2+ throughout GI: COMMON NORMALS: Normal to inspection, nondistended, normoactive bowel sounds present, Soft to palpation, non-tender, No hepatosplenomegaly present and no masses AUSCULTATION: Yes normoactive bowel sounds PALPATION: Yes Soft to palpation and Yes No hepatosplenomegaly present RECTAL EXAM: deferred Extremity: COMMON NORMALS: no clubbing, cyanosis or edema and no pedal edema Urinary Catheter Management^: Preciado: Cath Placed During This Visit: yes Reason for Continuing Indwelling Catheter: Accurate Measurement of Urinary Output in Critically Ill Patients Urinary Catheter Date of Insertion: 03/29/20 Urinary Catheter Time of Insertion: 12:35 Data : 04/01/20 06:14 04/01/20 06:14 A&P Assessment and plan (1) ARDS (adult respiratory distress syndrome): Acute hypoxic respiratory failure secondary to ARDS 2/2 COVID-19 pneumonia, viral pneumonitis, secondary bacterial pneumonia -Blood cultures:NTD -Sputum cultures: -urine Culture: -Urine Bacterial Antigen :Negative -Remdesivir -Decadron -Ascorbic acid -Zinc -S/P 2 bags convalescent plasma -Continue vancomycin and Primaxin, added azithromycin -Advair, albuterol -Has macrocytosis, B12 and folate within normal, peripheral smear no blasts - pulmonary toilet -Oxygen therapy -Eliquis 2.5 mg q12 h daily -Lasix as needed Status: Acute (2) COVID-19: -Acute hypoxic respiratory failure secondary to ARDS 2/2 COVID-19 pneumonia, viral pneumonitis, secondary bacterial pneumonia -Blood cultures:NTD -Sputum cultures: -urine Culture: -Urine Bacterial Antigen :Negative -2 D Echo: Normal LVEF : 60 % NO RWMA -Remdesivir -Decadron -Ascorbic acid -Zinc -S/P 2 bags convalescent plasma -Continue vancomycin and Primaxin, added azithromycin -Advair, albuterol -Has macrocytosis, B12 and folate within normal, peripheral smear no blasts - pulmonary toilet -Continue Mechanical Ventilation -Eliquis 2.5 mg q12 h daily -Lasix as needed Status: Acute (3) Hypertension: Status: Acute (4) Secondary bacterial pneumonia: Status: Acute (5) Hypoxia: Status: Acute (6) Acute respiratory failure with hypoxia: Status: Acute Additional A&P Information DVT PPX : On Eliquis 2.5 mg q12 h daily Lines :RT I.J ( 04/01 ), O.G Tube ( 04/01 ) Code Status :Full code Disposition :Home Attestations Medical Necessity Statement*: Patient needs to be in hospital for the management of R/F 2/2 TO COVID PNA. 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
[2020-04-01] MEDS: propofol 1,000 MG/100 ML INJ 5.4 MG IV (13:50)
[2020-04-01 14:20] LABS: Oxygen Device HHF
--- NOTE | 2020-04-01 14:42 | PC.NURSE ---
Patient successfully intubated at [address] Rios performed the procedure. Patient did desat slightly but rebounded with no problems. Medication is adequately sedating patient at this time. Patient appears comfortable.
--- NOTE | 2020-04-01 17:10 | XRR_ITS ---
PROCEDURE INFORMATION: Exam: XR Chest, 1 View Exam date and time: 04/01/2020 5:33 PM Age: 74 years old Clinical indication: Device placement; Other: Central line placement TECHNIQUE: Imaging protocol: XR of the chest Views: 1 view. COMPARISON: CR (CHEST, ) 04/01/2020 1:33 PM FINDINGS: Tubes, catheters and devices: Endotracheal tube is in satisfactory position with its tip approximately 3 cm above the loni. Nasogastric tube tip is in the stomach. Right jugular central venous catheter is in place with its tip near the cavoatrial junction. Lungs: Bilateral pulmonary infiltrates are not significantly changed. Pleural space: No pneumothorax is identified. Heart/Mediastinum: Unremarkable. No cardiomegaly. Bones/joints: Unremarkable. XR/XR chest 1V portable [id number] IMPRESSION: 1. No pneumothorax following right jugular line placement. 2. No change in bilateral pulmonary infiltrates.
[2020-04-01 17:30] LABS: ABG PH Result 7.43 (7.35-7.45); Alveolar-Arterial Oxygen Gradi 78.6 mmHg (5-10); Base Excess ABG 4.2 mmol/L (-2.0-2.0); Blood Gas Allen Test Pos; Blood Gas Sample Site Radial, left; Blood Gas Sample Type Arterial; Blood Gas Tidal Volume 0.38; Carboxyhemoglobin 0.6 %THgb (0.4-20.1); HCO3 ABG 29.2 mmol/L (22-26); HGB O2 Sat 91.4 % (95-100); Ionized Calcium Level - ABG 1.1 mmol/L (1.1-1.4); Methemoglobin 0.3 % (0.4-1.5); Oxygen Device VENT; Oxygen Saturation ABG 92.3; Potassium Level - ABG 3.8 mmol/L (3.5-5.0); Total Hemoglobin 14.3 g/dL (12-16)
[2020-04-01] MEDS: vancomycin 1,500 MG/300 ML PIGGYBACK 150 MG IV (18:20)
[2020-04-01] MEDS: sodium chloride 0.9% 1,000 ML 75 ML IV (19:45)
--- NOTE | 2020-04-01 22:54 | PM.ACPR ---
Acute Procedures Central Line Placement^: Right IJ: Time out performed: Yes Patient placed on monitor/pulse ox: Yes MD prep: mask, gown and gloves Central line prep: Chlorhexidine scrub Local anesthesia used: lidocaine 2% Ultrasound used for placement: Yes Central line lumen inserted: triple Post procedure: sutured in place, good blood return, all ports aspirated, flushed, capped and sterile dressing applied Post procedure x-ray: tip of catheter in good position and no pneumothorax seen Patient tolerated procedure: well Complications: none
--- NOTE | 2020-04-01 22:55 | PM.ACPR ---
Acute Procedures Intubation: Time out performed: Yes Sedative: etomidate Mg given: 20 Paralytic: succinylcholine Mg given: 100 Laryngoscope: fiber optic video scope ET tube size: 8 ET tube uncuffed: Yes Tube secured depth (cm): 23 Tube secured location: lips Tube placement confirmation: visualized tube passing through cords, equal breath sounds bilaterally, no breath sounds over epigastrium and color change noted Patient tolerated procedure: well Additional comments: ER Physician was at bedside and was actively involved in intubation
[2020-04-02] VITALS (111 sets, daily range): BP systolic 80–169; BP diastolic 41–85; PULSE 62–89; RESP 14–21; TEMP 37–37.2; O2SAT 87–94
[2020-04-02 03:12] LABS: ABG PCO2 41.9 mmHg (35-45); ABG PH Result 7.43 (7.35-7.45); Alveolar-Arterial Oxygen Gradi 55.8 mmHg (5-10); Arterial Blood Gas Hematocrit 38.9 % (37-47); Base Excess ABG 3.3 mmol/L (-2.0-2.0); Blood Gas Allen Test Pos; Blood Gas Sample Site Radial, right; Blood Gas Sample Type Arterial; Blood Gas Tidal Volume 0.38; Carboxyhemoglobin 0.7 %THgb (0.4-20.1); HGB O2 Sat 90.8 % (95-100); Ionized Calcium Level - ABG 1.1 mmol/L (1.1-1.4); Methemoglobin 0.8 % (0.4-1.5); Oxygen Device VENT; Oxygen Saturation ABG 92.1; PO2 ABG 59.9 mmHg (80.0-100.0); Potassium Level - ABG 3.4 mmol/L (3.5-5.0); Total Hemoglobin 12.7 g/dL (12-16)
[2020-04-02] MEDS: propofol 1,000 MG/100 ML INJ 10.8 MG IV (03:55)
[2020-04-02 04:54] LABS: Basophils % 0.1 %; Eosinophils % 0.2 %; Hematocrit 35.9 % (37.0-47.0); Hemoglobin 12.2 g/dL (11.5-15.3); Lymphocytes # 0.9 10^3/uL (0.8-4.8); Lymphocytes % 8.6 %; Mean Corpuscular Hemoglobin 34.2 pg (28.0-34.0); Mean Corpuscular Volume 100.6 fL (81-99); Monocytes # 0.2 10^3/uL (0.2-0.9); Monocytes % 1.6 %; Neutrophils # 9.69 10^3/uL (1.8-7.7); Neutrophils % 88.9 %; Nucleated Red Blood Cells % 0 %; Platelet Count 189 10^3/cmm (130-400); Red Blood Count 3.57 10^6/uL (4.1-5.3); Red Cell Distribution Width 12.3 % (12.1-15.1); White Blood Count 10.9 10^3/uL (4.0-10.0)
[2020-04-02 05:16] LABS: D Dimer 10.41 ug/mIFEU (0-0.59)
[2020-04-02 05:17] LABS: Alanine Aminotransferase 17 U/L (0-33); Albumin Level 2.4 g/dL (3.5-5.2); Alkaline Phosphatase 77 IU/L (35-105); Anion Gap 11.4 (5-19); Aspartate Amino Transferase 16 U/L (0-32); Blood Urea Nitrogen 26 mg/dL (8-23); Calcium 7.7 mg/dL (8.5-10.5); Carbon Dioxide 27 mmol/L (22-29); Chloride 105 mmol/L (98-107); Glucose 108 mg/dL (65-115); Osmolality Calculated 295 mOsm/kg (285-295); Potassium 3.4 mmol/L (3.5-5.1); Sodium 140 mmol/L (136-145); Total Bilirubin 0.4 mg/dL (0.15-1.2); Total Protein 5.4 g/dL (6.6-8.7)
[2020-04-02] MEDS: famotidine 20 mg/2 mL INJ IVP ×2 (05:26→17:11)
[2020-04-02] MEDS: dexamethasone 4 mg/mL INJ 6 MG IVP (07:49)
[2020-04-02] MEDS: potassium chloride premix 100 ML 50 MEQ IV (07:49)
[2020-04-02] MEDS: vancomycin 1,500 MG/300 ML PIGGYBACK 150 MG IV ×2 (07:49→19:35)
[2020-04-02] MEDS: zinc gluconate 50 mg Tablet PO (08:47)
[2020-04-02] MEDS: azithromycin 500 MG in sodium chloride 0.9% 250 ML 250 MG IV (08:47)
[2020-04-02] MEDS: ascorbic acid 500 mg Tablet 1000 MG PO ×2 (08:47→17:11)
[2020-04-02] MEDS: apixaban 5 mg Tablet PO ×2 (08:49→17:11)
--- NOTE | 2020-04-02 12:18 | P.PN_ITS ---
Subjective Subjective: Interval history: is intubated sedated.Off sedation her GCS is 10T.She was also paralysed and proned today. She has remained afebrile, has appropriate urine output. Other Vitals and labs have been reviewed. Medications: Reviewed: Yes Vitals/I&O/Wt Last Vital Signs Temp 98.9 F 04/02/20 08:00 Pulse 71 04/02/20 11:00 Resp 21 H 04/02/20 11:11 BP 93/52 04/02/20 11:00 Pulse Ox 89 L 04/02/20 11:00 04/01/20 04/02/20 04/02/20 22:59 06:59 14:59 Intake Total 472.25 / 1392.812 329.167 / 1721.979 Output Total 600 / 1925 600 / 2525 225 / 225 Balance -127.75 / -532.188 -270.833 / -803.021 -225 / -225 Physical Exam HENMT: COMMON NORMALS: normocephalic and atraumatic HEAD & SCALP: normocephalic and atraumatic Resp: COMMON NORMALS: clear to auscultation bilaterally EFFORT & INSPECTION: Yes symmetric chest movement AUSCULTATION: clear to auscultation bilaterally Cardio: COMMON NORMALS: regular rate, regular rhythm, S1 normal heart sound present, S2 normal heart sound present, No gallops present (Cardio), No murmurs present (Cardio), No rub (Cardio) and Peripheral pulses 2+ throughout RATE: regular rate RHYTHM: regular rhythm HEART SOUNDS: S1 normal heart sound pr esent and S2 normal heart sound present PERIPHERAL PULSES: Peripheral pulses 2+ throughout GI: COMMON NORMALS: Normal to inspection, nondistended, normoactive bowel sounds present, Soft to palpation, non-tender, No hepatosplenomegaly present and no masses AUSCULTATION: Yes normoactive bowel sounds PALPATION: Yes Soft to palpation and Yes No hepatosplenomegaly present RECTAL EXAM: deferred Extremity: COMMON NORMALS: no clubbing, cyanosis or edema and no pedal edema Urinary Catheter Management^: Preciado: Cath Placed During This Visit: yes Reason for Continuing Indwelling Catheter: Accurate Measurement of Urinary Output in Critically Ill Patients Urinary Catheter Date of Insertion: 03/29/20 Urinary Catheter Time of Insertion: 12:35 Data : 04/02/20 03:50 04/02/20 03:50 A&P Assessment and plan (1) ARDS (adult respiratory distress syndrome): Acute hypoxic respiratory failure secondary to ARDS 2/2 COVID-19 pneumonia, viral pneumonitis, secondary bacterial pneumonia -Blood cultures:NTD -Sputum cultures: -urine Culture: -Urine Bacterial Antigen :Negative -Remdesivir 5/5 Completed. -Decadron 6 mg I.V Day 10 -Ascorbic acid -Zinc -S/P 3 bags convalescent plasma -Continue vancomycin and Primaxin, added azithromycin -Advair, albuterol -Has macrocytosis, B12 and folate within normal, peripheral smear no blasts - pulmonary toilet -Continue Mechanical ventilation -Eliquis increased to 5 mg q12 h daily from 2.5 mg q12h daily -on Versed, fentanyl, and Propofol -On Nimbus Per protocol -Lasix as needed Status: Acute (2) COVID-19: -Acute hypoxic respiratory failure secondary to ARDS 2/2 COVID-19 pneumonia, viral pneumonitis, secondary bacterial pneumonia -Blood cultures:NTD -Sputum cultures: -urine Culture: -Urine Bacterial Antigen :Negative -2 D Echo: Normal LVEF : 60 % NO RWMA -Remdesivir -Decadron 6 mg I.V Day 10 -Ascorbic acid -Zinc -S/P 3 bags convalescent plasma -Continue vancomycin and Primaxin, added azithromycin -Advair, albuterol -Has macrocytosis, B12 and folate within normal, peripheral smear no blasts - pulmonary toilet -Continue Mechanical Ventilation -Eliquis 2.5 mg q12 h daily -Lasix as needed Status: Acute (3) Hypertension: Status: Acute (4) Secondary bacterial pneumonia: Status: Acute (5) Hypoxia: Status: Acute (6) Acute respiratory failure with hypoxia: Status: Acute Additional A&P Information DVT PPX : On Eliquis 5 mg q12 h daily Lines :RT I.J ( 04/01 ), O.G Tube ( 04/01 ) Code Status :Full code Disposition :Home Attestations Medical Necessity Statement*: Patient needs to be in hospital for the management of R/F 2/2 Severe ARDS 2/2 COVID PNA Coding Level of Care Code Acute Manager Cancer for [facility] Diagnoses ARDS (adult respiratory distress syndrome) J80 COVID-19 U07.1 Hypertension I10 Secondary bacterial pneumonia J15.9 Hypoxia R09.02 Acute respiratory failure with hypoxia J96.01
[2020-04-02] MEDS: cisatracurium 100 MG in sodium chloride 0.9% 50 ML IV (13:05)
[2020-04-02] MEDS: propofol 1,000 MG/100 ML INJ 16.2 MG IV (13:38)
--- NOTE | 2020-04-02 14:11 | PC.NURSE ---
Increased sedation at around 1300 to begin paralytic. It has since been increases signiicantly and we still have a 4/4 on the TOF. I am remaining at bedside until paralysis is obtained. Current BIS reading is 35, initial BIS at 1300 was 55. Patient is adequately sedated at this time.
--- NOTE | 2020-04-02 15:13 | PC.SOCIAL ---
IMM Not updated Did not update family on Pg 2 IMM. Pt is not w/n 48hrs of d/c.
[2020-04-02] MEDS: sodium chloride 0.9% (100 ml) 100 ML 10 ML (15:21)
--- NOTE | 2020-04-02 15:46 | PC.NURSE ---
Total parylization was reached so I am coming down on the paralytic until we reach the point we would like to be. Patient is tolerating the prone position at this time. BIS is between 30-40 at this time.
[2020-04-02] MEDS: propofol 1,000 MG/100 ML INJ 26.9 MG IV ×2 (17:09→20:57)
[2020-04-02] MEDS: diphenhydrAMINE 50 mg/mL SDV 1mL IVP (18:05)
[2020-04-02 19:09] LABS: Vancomycin Trough 14.4 ug/mL (10-15)
[2020-04-03] VITALS (64 sets, daily range): BP systolic 62–153; BP diastolic 34–95; PULSE 59–114; RESP 14–18; TEMP 36.4–37; O2SAT 90–95
[2020-04-03] MEDS: propofol 1,000 MG/100 ML INJ 26.9 MG IV ×7 (00:41→22:45)
[2020-04-03 03:48] LABS: ABG PCO2 53.8 mmHg (35-45); Alveolar-Arterial Oxygen Gradi 24.8 mmHg (5-10); Base Excess ABG -0.6 mmol/L (-2.0-2.0); Blood Gas Allen Test Pos; Blood Gas Sample Site Radial, left; Blood Gas Sample Type Arterial; Carboxyhemoglobin 0.8 %THgb (0.4-20.1); HCO3 ABG 26.5 mmol/L (22-26); HGB O2 Sat 92.1 % (95-100); Ionized Calcium Level - ABG 1.2 mmol/L (1.1-1.4); Methemoglobin 1.1 % (0.4-1.5); Oxygen Device VENT; Oxygen Saturation ABG 93.9; Potassium Level - ABG 3.4 mmol/L (3.5-5.0); Total Hemoglobin 11.7 g/dL (12-16)
[2020-04-03] MEDS: cisatracurium 100 MG in sodium chloride 0.9% 50 ML 5.4 MG IV (04:11)
[2020-04-03 04:33] LABS: Basophils % 0.2 %; Eosinophils % 0.2 %; Hematocrit 37.8 % (37.0-47.0); Hemoglobin 12.7 g/dL (11.5-15.3); Lymphocytes % 5.2 %; Mean Corpuscular HGB Conc 33.6 g/dL (30.0-36.0); Mean Corpuscular Volume 101.3 fL (81-99); Mean Platelet Volume 10.4 fL (7.4-10.4); Monocytes # 0.3 10^3/uL (0.2-0.9); Monocytes % 1.8 %; Neutrophils % 91.6 %; Nucleated Red Blood Cells % 0 %; Platelet Count 230 10^3/cmm (130-400); Red Blood Count 3.73 10^6/uL (4.1-5.3); Red Cell Distribution Width 12.1 % (12.1-15.1); White Blood Count 18.4 10^3/uL (4.0-10.0)
[2020-04-03 04:46] LABS: D Dimer 8.23 ug/mIFEU (0-0.59)
[2020-04-03 04:53] LABS: Alanine Aminotransferase 17 U/L (0-33); Albumin Level 2.6 g/dL (3.5-5.2); Alkaline Phosphatase 85 IU/L (35-105); Anion Gap 11.5 (5-19); Aspartate Amino Transferase 15 U/L (0-32); Blood Urea Nitrogen 15 mg/dL (8-23); Calcium 8.1 mg/dL (8.5-10.5); Carbon Dioxide 26 mmol/L (22-29); Chloride 104 mmol/L (98-107); Globulin 3.1 g/dL (1.3-4.6); Glucose 136 mg/dL (65-115); Osmolality Calculated 289 mOsm/kg (285-295); Potassium 3.5 mmol/L (3.5-5.1); Sodium 138 mmol/L (136-145); Total Bilirubin 0.3 mg/dL (0.15-1.2); Total Protein 5.7 g/dL (6.6-8.7)
[2020-04-03] MEDS: famotidine 20 mg/2 mL INJ IVP ×2 (06:00→17:23)
--- NOTE | 2020-04-03 06:00 | XR_ITS ---
WS: [id number] CHEST XRAY TECHNIQUE: Portable chest. CLINICAL INFORMATION: PNA COMPARISON: April 01, 2020 FINDINGS: Endotracheal tube with tip 4.4 cm above the loni. Right IJ catheter with tip in the mid t o distal SVC. Enteric tube with tip in the stomach. Heart: Normal cardiac silhouette. Lungs: Moderate chronic emphysematous changes. Diffuse bilateral pulmonary infiltrates worse in the l eft lower lobe. Progressed volume loss in the left lower lobe. Bones: Normal visualized bony structures. XR/XR chest 1V portable [id number] IMPRESSION: 1. Diffuse bilateral pulmonary infiltrates progressed since April 01, 2020. 2. Progressed opacification with Volume loss in the left lower lobe. Associate d Air bronchograms.
[2020-04-03] MEDS: vancomycin 1,500 MG/300 ML PIGGYBACK 150 MG IV ×2 (07:07→20:04)
--- NOTE | 2020-04-03 08:25 | PC.NURSE ---
Shift Summary: Patient had uneventful shift. Meds titrated based on need. (See Mar Flowsheet). Patient remained proned throughout shift, until the arrival of dayswift this AM. At which point staff genetic counselor from pervious PM shift, and staff genetic counselor from dayswift with the assistance of RT and MD Gabriel without incident. Nimbex drip paused. Report given to oncYolanda arzate RN. Drips: Fent 100 Prop 50 Versed 4 Levo 2
[2020-04-03] MEDS: azithromycin 500 MG in sodium chloride 0.9% 250 ML 250 MG IV (09:30)
[2020-04-03] MEDS: ascorbic acid 500 mg Tablet 1000 MG PO ×2 (13:05→17:23)
[2020-04-03] MEDS: zinc gluconate 50 mg Tablet PO (13:05)
[2020-04-03] MEDS: dexamethasone 4 mg/mL INJ 6 MG IVP (13:05)
[2020-04-03] MEDS: apixaban 5 mg Tablet PO ×2 (13:05→17:23)
--- NOTE | 2020-04-03 15:09 | P.PN_ITS ---
Subjective Subjective: Interval history: Ms.Collins Mac is intubated , sedated and paralysed. Her am xray chest, ABG, and labs have been reviewed. Medications: Reviewed: Yes Vitals/I&O/Wt Last Vital Signs Temp 98.6 F 04/03/20 08:00 Pulse 70 04/03/20 14:09 Resp 18 04/03/20 14:09 BP 82/44 04/03/20 09:00 Pulse Ox 91 04/03/20 14:09 04/03/20 04/03/20 04/03/20 06:59 14:59 22:59 Intake Total 529.028 / 2747.100 885.612 / 885.612 Output Total 645 / 1505 400 / 400 Balance -115.972 / 1242.100 485.612 / 485.612 Physical Exam Narrative: EXAM NARRATIVE: [facility] COMMON NORMALS: normocephalic and atraumatic HEAD & SCALP: normocephalic and atraumatic Resp COMMON NORMALS: clear to auscultation bilaterally EFFORT & INSPECTION: Yes symmetric chest movement AUSCULTATION: clear to auscultation bilaterally Cardio COMMON NORMALS: regular rate, regular rhythm, S1 normal heart sound present, S2 normal heart sound present, No gallops present (Cardio), No murmurs present (Cardio), No rub (Cardio) and Peripheral pulses 2+ throughout RATE: regular rate RHYTHM: regular rhythm HEART SOUNDS: S1 normal heart sound present and S2 normal heart sound present PERIPHERAL PULSES: Peripheral pulses 2+ throughout GI COMMON NORMALS: Normal to inspection, nondistended, normoactive bowel sounds p resent, Soft to palpation, non-tender, No hepatosplenomegaly present and no masses AUSCULTATION: Yes normoactive bowel sounds PALPATION: Yes Soft to palpation and Yes No hepatosplenomegaly present RECTAL EXAM: deferred Extremity COMMON NORMALS: no clubbing, cyanosis or edema and no pedal edema Urinary Catheter Management^: Preciado: Cath Placed During This Visit: yes Reason for Continuing Indwelling Catheter: Accurate Measurement of Urinary Output in Critically Ill Patients Urinary Catheter Date of Insertion: 03/29/20 Urinary Catheter Time of Insertion: 12:35 Data : 04/03/20 02:45 04/03/20 02:45 Micro: Microbiology 04/01/20 17:20 Gram Stain - Final Sputum - Endotracheal Tube Aspirate Sputum Culture - Preliminary Gram Negative Rods A&P Assessment and plan (1) ARDS (adult respiratory distress syndrome): Acute hypoxic respiratory failure secondary to ARDS 2/2 COVID-19 pneumonia, viral pneumonitis, secondary bacterial pneumonia -Blood cultures:NTD -Sputum cultures: -urine Culture: -Urine Bacterial Antigen :Negative -Remdesivir / Completed. -Decadron 6 mg I.V Day 10 -Ascorbic acid -Zinc -S/P 3 bags convalescent plasma -Continue vancomycin and Primaxin, added azithromycin -Advair, albuterol -Has macrocytosis, B12 and folate within normal, peripheral smear no blasts - pulmonary toilet -Continue Mechanical ventilation -Eliquis increased to 5 mg q12 h daily from 2.5 mg q12h daily -on Versed, fentanyl, and Propofol -On Nimbus Per protocol -Lasix as needed Status: Acute (2) COVID-19: -Acute hypoxic respiratory failure secondary to ARDS 2/2 COVID-19 pneumonia, viral pneumonitis, secondary bacterial pneumonia -Blood cultures:NTD -Sputum cultures:GNR -urine Culture: -Urine Bacterial Antigen :Negative -2 D Echo: Normal LVEF : 60 % NO RWMA -Remdesivir Extended 10 days course -Decadron 6 mg I.V Day 10 -Ascorbic acid -Zinc -S/P 3 bags convalescent plasma -Continue vancomycin and Primaxin, added azithromycin -Advair, albuterol -Has macrocytosis, B12 and folate within normal, peripheral smear no blasts -Pulmonary toilet -Continue Mechanical Ventilation -Eliquis 2.5 mg q12 h daily -Lasix as needed Status: Acute (3) Hypertension: Status: Acute (4) Secondary bacterial pneumonia: Status: Acute (5) Hypoxia: Status: Acute (6) Acute respiratory failure with hypoxia: Status: Acute Additional A&P Information DVT PPX : On Eliquis 5 mg q12 h daily Lines :RT I.J ( 04/01 ), O.G Tube ( 04/01 ) Code Status :Full code Disposition :Home Attestations Medical Necessity Statement*: Patient needs to be in hospital for the management of severe ARDS 2/2 COVID PNA Coding Level of Care Code 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
[2020-04-03 15:29] LABS: Magnesium 2.3 mg/dL (1.7-2.3)
[2020-04-03] MEDS: remdesivir 100 MG in sodium chloride 0.9% (100 ml) 100 ML IV (17:25)
[2020-04-03 17:28] LABS: Magnesium 2.3 mg/dL (1.7-2.3)
[2020-04-03] MEDS: potassium chloride premix 100 ML 25 MEQ IV (18:34)
[2020-04-03 21:27] LABS: ABG PCO2 42.6 mmHg (35-45); ABG PH Result 7.43 (7.35-7.45); Alveolar-Arterial Oxygen Gradi 2.4 mmHg (5-10); Arterial Blood Gas Hematocrit 38.6 % (37-47); Base Excess ABG 3.2 mmol/L (-2.0-2.0); Blood Gas Allen Test Pos; Blood Gas Sample Site Radial, left; Blood Gas Sample Type Arterial; Blood Gas Tidal Volume 0.38; Carboxyhemoglobin 0.8 %THgb (0.4-20.1); HGB O2 Sat 94.6 % (95-100); Ionized Calcium Level - ABG 1.2 mmol/L (1.1-1.4); Oxygen Device VENT; Oxygen Saturation ABG 96.4; PO2 ABG 79.5 mmHg (80.0-100.0); Potassium Level - ABG 3.9 mmol/L (3.5-5.0); Total Hemoglobin 12.6 g/dL (12-16)
[2020-04-04] VITALS (35 sets, daily range): BP systolic 75–128; BP diastolic 43–90; PULSE 62–120; RESP 14–22; TEMP 36.7–37.1; O2SAT 87–99
[2020-04-04] MEDS: propofol 1,000 MG/100 ML INJ 26.9 MG IV ×2 (01:57→06:35)
[2020-04-04 03:47] LABS: ABG PCO2 39.4 mmHg (35-45); ABG PH Result 7.47 (7.35-7.45); Alveolar-Arterial Oxygen Gradi 30.4 mmHg (5-10); Base Excess ABG 4.3 mmol/L (-2.0-2.0); Blood Gas Allen Test Pos; Blood Gas Sample Site Radial, right; Blood Gas Sample Type Arterial; Blood Gas Tidal Volume 0.38; Carboxyhemoglobin 0.7 %THgb (0.4-20.1); HCO3 ABG 28.3 mmol/L (22-26); Ionized Calcium Level - ABG 1.2 mmol/L (1.1-1.4); Methemoglobin 0.5 % (0.4-1.5); Oxygen Device VENT; Oxygen Saturation ABG 96.1; PO2 ABG 74.7 mmHg (80.0-100.0); Potassium Level - ABG 3.8 mmol/L (3.5-5.0); Total Hemoglobin 12.7 g/dL (12-16)
[2020-04-04 04:15] LABS: Basophils % 0.1 %; Eosinophils % 0.2 %; Hematocrit 35.3 % (37.0-47.0); Lymphocytes # 0.7 10^3/uL (0.8-4.8); Lymphocytes % 7.3 %; Mean Corpuscular Hemoglobin 33.7 pg (28.0-34.0); Mean Corpuscular Volume 99.2 fL (81-99); Mean Platelet Volume 10.2 fL (7.4-10.4); Monocytes # 0.1 10^3/uL (0.2-0.9); Monocytes % 1.4 %; Neutrophils # 9.08 10^3/uL (1.8-7.7); Neutrophils % 90.4 %; Nucleated Red Blood Cells % 0 %; Platelet Count 206 10^3/cmm (130-400); Red Blood Count 3.56 10^6/uL (4.1-5.3); Red Cell Distribution Width 12.2 % (12.1-15.1)
[2020-04-04 04:51] LABS: Alanine Aminotransferase 14 U/L (0-33); Albumin Level 2.5 g/dL (3.5-5.2); Alkaline Phosphatase 77 IU/L (35-105); Aspartate Amino Transferase 12 U/L (0-32); Blood Urea Nitrogen 12 mg/dL (8-23); Calcium 7.9 mg/dL (8.5-10.5); Carbon Dioxide 29 mmol/L (22-29); Chloride 106 mmol/L (98-107); Globulin 2.5 g/dL (1.3-4.6); Glucose 114 mg/dL (65-115); Osmolality Calculated 295 mOsm/kg (285-295); Sodium 142 mmol/L (136-145); Total Bilirubin 0.3 mg/dL (0.15-1.2)
[2020-04-04 04:52] LABS: Magnesium 2.2 mg/dL (1.7-2.3)
[2020-04-04] MEDS: famotidine 20 mg/2 mL INJ IVP ×2 (06:28→18:42)
--- NOTE | 2020-04-04 08:14 | PC.NURSE ---
New Orders: V?O given by MD Gabriel for a 500mL bolus of NS to be given followed by a one time order of 75mL/hr for a total of 1L of fluid to be given.
[2020-04-04] MEDS: dexamethasone 4 mg/mL INJ 6 MG IVP (08:46)
[2020-04-04] MEDS: vancomycin 1,500 MG/300 ML PIGGYBACK 150 MG IV ×2 (08:47→19:47)
[2020-04-04] MEDS: sodium chloride 0.9% 500 ML 999 ML IV (08:47)
[2020-04-04] MEDS: zinc gluconate 50 mg Tablet PO (10:29)
[2020-04-04] MEDS: apixaban 5 mg Tablet PO ×2 (10:29→18:41)
[2020-04-04] MEDS: ascorbic acid 500 mg Tablet 1000 MG PO ×2 (10:29→18:41)
[2020-04-04] MEDS: azithromycin 500 MG in sodium chloride 0.9% 250 ML 250 MG IV (10:30)
[2020-04-04] MEDS: sodium chloride 0.9% (100 ml) 100 ML (10:31)
[2020-04-04] MEDS: propofol 1,000 MG/100 ML INJ 21.6 MG IV ×2 (10:38→17:38)
[2020-04-04] MEDS: sodium chloride 0.9% 500 ML 75 ML IV (10:54)
--- NOTE | 2020-04-04 13:10 | P.PN_ITS ---
Subjective Subjective: Interval history: Ms.Linda Jack is intubated,sedated, paralysed, and proned ( day 3 of proning ). She has remained afebrile. Has good urine output. Her ABG, Xray chest , and labs have been reviewed. Medications: Reviewed: Yes Vitals/I&O/Wt Last Vital Signs Temp 98.0 F 04/04/20 07:00 Pulse 63 04/04/20 12:00 Resp 18 04/04/20 12:00 BP 107/64 04/04/20 12:00 Pulse Ox 91 04/04/20 12:00 04/03/20 04/04/20 04/04/20 22:59 06:59 14:59 Intake Total 816.945 / 1702.557 668.413 / 2370.970 1044.309 / 1044.309 Output Total 1300 / 1900 650 / 2550 Balance -483.055 / -197.443 18.413 / -585.357 6766.309 / 1044.309 Physical Exam Narrative: EXAM NARRATIVE: EXAM NARRATIVE: [facility] COMMON NORMALS: normocephalic and atraumatic HEAD & SCALP: normocephalic and atraumatic Resp COMMON NORMALS: clear to auscultation bilaterally EFFORT & INSPECTION: Yes symmetric chest movement AUSCULTATION: clear to auscultation bilaterally Cardio COMMON NORMALS: regular rate, regular rhythm, S1 normal heart sound present, S2 normal heart sound present, No gallops present (Cardio), No murmurs present (Cardio), No rub (Cardio) and Peripheral pulses 2+ throughout RATE: regular rate RHYTHM: regular rhythm HEART SOUNDS: S1 normal heart sound present and S2 normal heart sound present PERIPHERAL PULSES: Peripheral pulses 2+ throughout GI COMMON NORMALS: Normal to inspection, nondistended, normoactive bowel sounds present, Soft to palpation, non-tender, No hepatosplenomegaly present and no masses AUSCULTATION: Yes normoactive bowel sounds PALPATION: Yes Soft to palpation and Yes No hepatosplenomegaly present RECTAL EXAM: deferred Extremity COMMON NORMALS: no clubbing, cyanosis or edema and no pedal edema Urinary Catheter Management^: Preciado: Cath Placed During This Visit: yes Reason for Continuing Indwelling Catheter: Accurate Measurement of Urinary Output in Critically Ill Patients Urinary Catheter Date of Insertion: 03/29/20 Urinary Catheter Time of Insertion: 12:35 Data : 04/04/20 03:30 04/04/20 03:30 Micro: Microbiology 04/01/20 17:20 Gram Stain - Final Sputum - Endotracheal Tube Aspirate Sputum Culture - Preliminary Gram Negative Rods A&P Assessment and plan (1) ARDS (adult respiratory distress syndrome): Acute hypoxic respiratory failure secondary to ARDS 2/2 COVID-19 pneumonia possible bacterial pneumonia. -Blood cultures:NTD -Sputum cultures:GNR -urine Culture: -Urine Bacterial Antigen :Negative -xRay chest : 04/03: Diffuse bilateral pulmonary infiltrates progressed since April 01, 2020. Progressed opacification with Volume loss in the left lower lobe. Associated Air bronchograms. AB/12 : Ph: 7.47, PCO2: 39, PO2: 74, FIO2: 50 % P/F: 74/ 0.5 Cultures: Sputum :GNR , Blood : NTD , -On 10 days extended Remdesivir course. -Decadron 6 mg I.V Day 12 -Ascorbic acid -Zinc -S/P: 3 bags convalescent plasma -Continue vancomycin and Primaxin, and azithromycin -Advair, albuterol - pulmonary toilet -Continue Mechanical ventilation -Eliquis increased to 5 mg q12 h daily from 2.5 mg q12h daily -on Versed, fentanyl, and Propofol -On Nimbus Per protocol -Day 3/3 of proning -Lasix as needed Status: Acute (2) COVID-19: -Acute hypoxic respiratory failure secondary to ARDS 2/2 COVID-19 pneumonia, viral pneumonitis, secondary bacterial pneumonia -Blood cultures:NTD -Sputum cultures:GNR -urine Culture: -Urine Bacterial Antigen :Negative -2 D Echo: Normal LVEF : 60 % NO RWMA -Remdesivir Extended 10 days course -Decadron 6 mg I.V Day 12 -Ascorbic acid -Zinc -S/P 3 bags convalescent plasma -Continue vancomycin and Primaxin, added azithromycin -Advair, albuterol -Has macrocytosis, B12 and folate within normal, peripheral smear no blasts -Pulmonary toilet -Continue Mechanical Ventilation -Eliquis 5 mg q12 h daily -Lasix as needed Status: Acute (3) Sepsis due to severe acute respiratory syndrome coronavirus 2 (SARS-CoV-2): Status: Acute (4) Hypertension: Status: Acute (5) Secondary bacterial pneumonia: Status: Acute (6) Hypoxia: Status: Acute (7) Acute respiratory failure with hypoxia: Status: Acute Additional A&P Information DVT PPX : On Eliquis 5 mg q12 h daily Lines :RT I.J ( 04/01 ), O.G Tube ( 04/01 ) Code Status :Full code Disposition :Home Attestations 2 Medical Necessity Statement*: Patient needs to be in hospital for the management of Severe ARDS 2/2 to COVID PNA Coding Level of Care Code Acute 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
--- NOTE | 2020-04-04 13:24 | PC.SOCIAL ---
IMM Updated Updated pt's son Eb, via phone, on Pg 2 IMM. No questions voiced. Signed, dated, & timed copy in chart.
[2020-04-04] MEDS: remdesivir 100 MG in sodium chloride 0.9% (100 ml) 100 ML IV (18:05)
[2020-04-04] MEDS: cisatracurium 100 MG in sodium chloride 0.9% 50 ML 10.8 MG IV (20:11)
[2020-04-05] VITALS (37 sets, daily range): BP systolic 80–138; BP diastolic 43–80; PULSE 73–103; RESP 18–24; TEMP 36.6–37.3; O2SAT 87–95
--- NOTE | 2020-04-05 05:19 | PC.NURSE ---
Train of [employer] 04/04/20 @ 1900 - 4/04/04/20 @ 2000 - 4/04/04/20 @ 2100 - 404/04/20 @ 2200 - 06/2404/04/20 @ 2300 - 404/05/20 @ 0000 - 06/2404/05/20 @ 0100 - 05/2404/05/20 @ 0200 - 06/2404/05/20 @ 0300 - 06/2404/05/20 @ 0400 - 06/2404/05/20 @ 0500 - 3 BIS 04/04/20 @ 1900 - 35 04/04/20 @ 2100 - 36 04/04/20 @ 2200 - 38 04/04/20 @ 2300 - 40 04/05/20 @ 0000 - 36 04/05/20 @ 0100 - 44 04/05/20 @ 0200 - 38 04/05/20 @ 0300 - 40 04/05/20 @ 0400 - 41 04/05/20 @ 0500 - 52
[2020-04-05] MEDS: cisatracurium 100 MG in sodium chloride 0.9% 50 ML 5.4 MG IV (05:36)
[2020-04-05] MEDS: famotidine 20 mg/2 mL INJ IVP ×2 (06:18→17:43)
--- NOTE | 2020-04-05 07:09 | PC.NURSE ---
Train of Four 04/04/20 @ 1900 - 0/4 04/04/20 @ 2000 - 0/4 04/04/20 @ 2100 - 0/4 04/04/20 @ 2200 - 0/4 04/04/20 @ 2300 - 0/04/05/20 @ 0000 - 0/04/05/20 @ 0100 - 104/05/20 @ 0200 - 0/04/05/20 @ 0300 - 0/04/05/20 @ 0400 - 0/04/05/20 @ 0500 - 1 BIS 04/04/20 @ 1900 - 35 04/04/20 @ 2100 - 36 04/04/20 @ 2200 - 38 04/04/20 @ 2300 - 40 04/05/20 @ 0000 - 36 04/05/20 @ 0100 - 44 04/05/20 @ 0200 - 38 04/05/20 @ 0300 - 40 04/05/20 @ 0400 - 41 04/05/20 @ 0500 - 52
[2020-04-05 07:21] LABS: Vancomycin Trough 22.7 ug/mL (10-15)
[2020-04-05] MEDS: dexamethasone 4 mg/mL INJ 6 MG IVP (07:55)
[2020-04-05] MEDS: apixaban 5 mg Tablet PO ×2 (08:34→17:40)
[2020-04-05] MEDS: azithromycin 500 MG in sodium chloride 0.9% 250 ML 250 MG IV (08:34)
[2020-04-05] MEDS: ascorbic acid 500 mg Tablet 1000 MG PO ×2 (08:34→17:39)
[2020-04-05] MEDS: zinc gluconate 50 mg Tablet PO (08:34)
[2020-04-05 08:51] LABS: ABG PCO2 47.5 mmHg (35-45); ABG PH Result 7.28 (7.35-7.45); Alveolar-Arterial Oxygen Gradi 38.3 mmHg (5-10); Arterial Blood Gas Hematocrit 28.2 % (37-47); Base Excess ABG -4.5 mmol/L (-2.0-2.0); Blood Gas Allen Test Pos; Blood Gas Sample Site Radial, right; Blood Gas Sample Type Arterial; Carboxyhemoglobin 1.2 %THgb (0.4-20.1); HCO3 ABG 22.2 mmol/L (22-26); HGB O2 Sat 91.3 % (95-100); Ionized Calcium Level - ABG 1.3 mmol/L (1.1-1.4); Methemoglobin 0.2 % (0.4-1.5); Oxygen Device VENT; Oxygen Saturation ABG 92.5; PO2 ABG 69.5 mmHg (80.0-100.0); Total Hemoglobin 9.2 g/dL (12-16)
[2020-04-05 09:03] LABS: Basophils % 0.2 %; Eosinophils # 0.1 10^3/uL (0.0-0.8); Eosinophils % 1.1 %; Hematocrit 35.9 % (37.0-47.0); Hemoglobin 12.2 g/dL (11.5-15.3); Lymphocytes # 1.5 10^3/uL (0.8-4.8); Lymphocytes % 12.5 %; Mean Corpuscular Hemoglobin 34.3 pg (28.0-34.0); Mean Corpuscular Volume 100.8 fL (81-99); Mean Platelet Volume 9.9 fL (7.4-10.4); Monocytes # 0.4 10^3/uL (0.2-0.9); Monocytes % 3.4 %; Neutrophils # 9.62 10^3/uL (1.8-7.7); Neutrophils % 80.9 %; Nucleated Red Blood Cells % 0 %; Platelet Count 211 10^3/cmm (130-400); Red Blood Count 3.56 10^6/uL (4.1-5.3); Red Cell Distribution Width 12.7 % (12.1-15.1); White Blood Count 11.9 10^3/uL (4.0-10.0)
[2020-04-05 09:39] LABS: Alanine Aminotransferase 18 U/L (0-33); Albumin Level 2.4 g/dL (3.5-5.2); Alkaline Phosphatase 72 IU/L (35-105); Anion Gap 10.4 (5-19); Aspartate Amino Transferase 22 U/L (0-32); Blood Urea Nitrogen 20 mg/dL (8-23); Carbon Dioxide 28 mmol/L (22-29); Chloride 103 mmol/L (98-107); Globulin 2.9 g/dL (1.3-4.6); Glucose 77 mg/dL (65-115); Osmolality Calculated 287 mOsm/kg (285-295); Potassium 3.4 mmol/L (3.5-5.1); Sodium 138 mmol/L (136-145); Total Bilirubin 0.3 mg/dL (0.15-1.2); Total Protein 5.3 g/dL (6.6-8.7)
[2020-04-05] MEDS: vancomycin 1,250 MG/250 ML PIGGYBACK 250 MG IV (11:13)
--- NOTE | 2020-04-05 12:13 | PC.NURSE ---
TOF/BIS 7- 3/4 37 8- 4/4 52 9- 4/4 53 10- Paralytic off at this time. Patient was turned back to supine at 0950 this AM.
[2020-04-05] MEDS: lactulose oral liq 20 gm/30 mL UDC 30 GM PO ×2 (13:56→20:55)
--- NOTE | 2020-04-05 14:06 | P.PN_ITS ---
Subjective Subjective: Interval history: Hospital course noted. No acute events overnight. On examination patient is intubated and sedated. She has finished 3 days of proning. Overnight patient has remained afebrile. She is on fentanyl, propofol, Precedex drip. She is also on Levophed with mean arterial pressure of 60. Afebrile last 24 hours saturating 92% on current ventilator setting. Vitals and labs noted. Medications: Reviewed: Yes Vitals/I&O/Wt Last Vital Signs Temp 98.5 F 04/05/20 08:00 Pulse 73 04/05/20 12:00 Resp 18 04/05/20 11:14 BP 88/54 04/05/20 12:00 Pulse Ox 93 04/05/20 12:00 04/04/20 04/05/20 04/05/20 22:59 06:59 14:59 Intake Total 1346.824 / 2957.093 490.827 / 3447.920 727.911 / 727.911 Output Total 999 / 1000 / 1989 240 / 240 Balance 346.824 / 1957.093 -499.173 / 1457.920 487.911 / 487.911 Physical Exam Narrative: EXAM NARRATIVE: General: Sedated, intubated HEENT: PERRLA, pupils bilaterally equal and reactive Chest: Coarse crackles bilaterally, decreased air entry bilateral lower zones, diffuse rhonchi all over the lung brand CVS: S1-S2 regular, no murmurs, no tachycardia, no gallops, no rubs Abdomen: Soft, nontender, no organomegaly, bowel sounds present Neuro: Sedated, Extremities: Bilateral puffy 1+, pulses bilaterally palpable Urinary Catheter Management^: Preciado: Cath Placed During This Visit: yes Reason for Continuing Indwelling Catheter: Accurate Measurement of Urinary Output in Critically Ill Patients Urinary Catheter Date of Insertion: 03/29/20 Urinary Catheter Time of Insertion: 12:35 Data : 04/05/20 08:20 04/05/20 08:20 Micro: Microbiology 04/01/20 17:20 Gram Stain - Final Sputum - Endotracheal Tube Aspirate Sputum Culture - Final Stenotrophomonas maltophilia A&P Assessment and plan (1) Sepsis due to severe acute respiratory syndrome coronavirus 2 (SARS-CoV-2): Status: Acute (2) ARDS (adult respiratory distress syndrome): Status: Acute (3) Secondary bacterial pneumonia: Status: Acute (4) COVID-19: Status: Acute (5) Hypertension: Status: Acute Additional A&P Information ARDS and sepsis secondary to COVID-19 pneumonia with superadded bacterial infection: Septic shock: Currently on Levophed. Continue with sedation at current dose. We will decrease fentanyl. Daily sedation vacation. Will decrease sedation tomorrow morning to see if patient wakes up. Daily ABGs. Check procalcitonin, MRSA swab, proBNP, TSH. Check blood cultures. Check LDH, Fungitell glucan assay. Repeat urine Legionella and bacterial antigen. Sputum culture results appreciated. Patient has finished a course of remdesivir earlier in hospitalization with last dose on March 28 and a repeat remdesivir course at [facility] started since April 03. Continue dexamethasone 6 mg IV daily for now. Day 13 today. Currently patient is on vancomycin, imipenem. Stop imipenem and changed to Zosyn. If patient remains afebrile for next 24 to 48 hours will de-escalate antibiotics and stop both vancomycin and Zosyn. Check MRSA swab. Start patient on levofloxacin as per the culture sensitivities. Start patient on DuoNebs every 4 hours and budesonide twice daily. Continue with Eliquis 5 mg twice daily. We will repeat chest x-ray tomorrow morning. Depending on the results we will see if patient requires CT chest. Repeat inflammatory markers tomorrow. Echocardiogram done earlier in the admission shows an EF of 60% with normal LV cavity size with mild aortic regurgitation and normal PASP. Overall patient is 2 L positive since admission. For now give IV Lasix 40 mg stat. We will try to be patient on negative balance. DVT PPX : On Eliquis 5 mg q12 h daily Lines :RT I.J ( 04/01 ), O.G Tube ( 04/01 ) Nutrition: Start patient on tube feeds with Ensure starting 20 cc/h going up to 10 cc every 4 hour with free water flushes 100 cc every 6 hours. Full code. Severely guarded prognosis. Attestations Medical Necessity Statement*: Requires further hospitalization for management of ARDS and septic shock because of COVID-19 pneumonia and superadded bacterial pneumonia. Intubated. 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
[2020-04-05] MEDS: potassium chloride oral liq 20 mEq/15 mL UDC 40 MEQ PO (15:18)
[2020-04-05] MEDS: FUROsemide 10 mg/mL SDV 4mL 40 MG IVP (15:18)
[2020-04-05] MEDS: propofol 1,000 MG/100 ML INJ 13.5 MG IV (15:21)
[2020-04-05] MEDS: piperacillin-tazobactam 3.375 GM in sodium chloride 0.9% (plus) 50 ML IV ×2 (15:21→23:54)
[2020-04-05] MEDS: ipratropium-albuterol 3 mL Neb INHALATION ×3 (15:37→23:53)
--- NOTE | 2020-04-05 16:15 | P.CONIM_ITS ---
Providers/Reason For Consult Consulting Physican/Specialty*: Pulmonary and critical care medicine Reason for Consult*: Acute hypoxic respiratory failure secondary to COVID-19 pneumonia Attending Physician: Archie Daigle MD Primary Care Provider: Clare Arnett MD History of Present Illness History of Present Illness Estefania Jack is a 74 year old female who was admitted to the hospital on March 22 with COVID-19 pneumonia. She initially tested positive for COVID-19 on March 20. The patient initially required oxygen and the requirement increased progressively. The patient was tried with high flow nasal cannula and noninvasive positive pressure ventilation however she required intubation and mechanical ventilation on April 01. The patient received remdesivir, convalescent plasma and dexamethasone. The patient underwent prone positioning for 3 days. She is also on full dose anticoagulation with apixaban. The patient is currently broadly covered with vancomycin, Zosyn. Her sputum culture from April 01 grew Stenotrophomonas maltophilia and she was started on levofloxacin today. The patient was seen and examined in the unit today. Her sedation is being progressively tapered down. The patient was on 40% oxygen. Her white blood cell count today is 11.9 which has come down from April 03 when he was 18.4. The patient does not have any significant endorgan dysfunction. Chest radiograph is consistent with bilateral diffuse infiltrates. Review of Systems Narrative: Unable to assess Meds/Allergies Home Medications and Allergies Home Medications Medication Instructions Recorded Confirmed Last Taken Type metoprolol succinate 50 mg 50 mg PO DAILY@03/18/20 03/23/20 03/22/20 History tablet,extended release 24 hr celecoxib 100 mg PO BID@03/23/20 03/23/20 03/23/20 History dexamethasone 6 mg PO DAILY@03/23/20 03/23/20 03/23/20 History doxycycline hyclate 100 mg PO BID@03/23/20 03/23/20 03/23/20 History prednisone 20 mg PO BID@03/23/20 03/23/20 03/23/20 History Allergies Allergy/AdvReac Type Severity Reaction Status Date / Time cefuroxime [From Ceftin] Allergy ALGY-Rash Verified 03/23/20 09:48 erythromycin base Allergy rash Verified 03/18/20 11:36 meloxicam Allergy rash Verified 03/18/20 11:36 Current Medications Current Medications Generic Name Dose Route Start Last Admin Trade Name Freq PRN Reason Stop Dose Admin Albuterol Sulfate 2 puff 03/23/20 17:05 04/01/20 08:43 Albuterol 8 Gm Mdi INHALATION 2 puff Q4H.RESPIRATORY PRN Administration SHORTNESS OF BREATH Albuterol/Ipratropium 3 ml 04/05/20 16:00 04/05/20 15:37 Ipratropium-Albuterol 3 Ml Neb INHALATION 3 ml Q4H.RESPIRATORY NGOC Administration Apixaban 5 mg 04/02/20 09:00 04/05/20 08:34 Apixaban 5 Mg Tablet PO 5 mg BID NGOC Administration Ascorbic Acid 1,000 mg 03/24/20 18:00 04/05/20 08:34 Ascorbic Acid 500 Mg Tablet PO 1,000 mg BID NGOC Administration Dexamethasone 6 mg 03/24/20 08:00 04/05/20 07:55 Dexamethasone 4 Mg/Ml Inj IVP 6 mg Q24H NGOC Administration Famotidine 20 mg 04/01/20 18:00 04/05/20 06:18 Famotidine 20 Mg/2 Ml Inj IVP 20 mg Q12H NGOC Administration Dexmedetomidine HCl 400 mcg/ 104 mls @ 0 mls/hr 04/01/20 12:00 04/02/20 13:37 Sodium Chloride IV Infused .Q0M NGOC Titration Protocol Per Protocol Propofol 1,000 mg in 100 mls @ 0 mls/hr 04/01/20 13:00 04/05/20 15:21 Diprivan IV 25 mcg/kg/min .Q0M NGOC 13.5 mls/hr Administration Protocol Per Protocol Norepinephrine Bitartrate 4 mg 254 mls @ 0 mls/hr 04/02/20 12:00 04/04/20 20:13 / Dextrose IV 0 mcg/min .Q0M NGOC 0 mls/hr Titration Protocol Per Protocol Remdesivir 100 mg/ Sodium 100 mls @ 100 mls/hr 04/03/20 18:00 04/04/20 20:00 Chloride IV 04/07/20 18:59 Infused Q24H NGOC Infusion Vancomycin/PEG/NADA/Lysine/Water 1,250 mg in 250 mls @ 250 mls/hr 04/05/20 11:30 04/05/20 12:20 Vancocin IV Infused Q12H NGOC Infusion Fentanyl 1,000 mcg/ Sodium 100 mls @ 0 mls/hr 04/05/20 13:15 04/05/20 13:50 Chloride IV 50 mcg/hr .Q0M NGOC 5 mls/hr Administration Protocol Per Protocol Piperacillin Sod/Tazobactam 50 mls @ 12.5 mls/hr 04/05/20 15:00 04/05/20 15:54 Sod 3.375 gm/ Sodium Chloride IV Infused Q8H NGOC Infusion Lactulose 30 gm 04/05/20 14:00 04/05/20 13:56 Lactulose Oral Liq 20 Gm/30 Ml Udc PO 30 gm Q6H NGOC Administration Zinc Gluconate 50 mg 03/24/20 12:10 04/05/20 08:34 Zinc Gluconate 50 Mg Tablet PO 50 mg DAILY NGOC Administration PFSH Acute PFSH: Medical History Hypertension Surgical History History of left knee replacement Family History Father CAD (coronary artery disease) Mother CAD (coronary artery disease) Social History Smoking and tobacco status: never smoked Alcohol intake: never Substance/Drug Use: never Vitals/I&O/Wt Last Vital Signs Temp 98.5 F 04/05/20 08:00 Pulse 98 04/05/20 16:00 Resp 18 04/05/20 15:33 BP 117/65 04/05/20 16:00 Pulse Ox 91 04/05/20 16:00 04/05/20 04/05/20 04/05/20 06:59 14:59 22:59 Intake Total 490.827 / 3447.920 747.953 / 747.953 50 / 797.953 Output Total / 1989 320 / 320 100 / 420 Balance -499.173 / 1457.920 427.953 / 427.953 -50 / 377.953 Physical Exam Narrative: EXAM NARRATIVE: General: Patient is intubated and sedated Neck: No JVD Respiratory: Auscultation: Crackles at bilateral lung bases, no wheezing or rhonchi Cardiovascular: Regular rate and rhythm, S1-S2 present, no murmur, mild peripheral edema. Abdomen: Soft, positive bowel sound Skin: No rash, generalized edema Neuro: Patient is sedated, intermittently responsive Urinary Catheter Management^: Preciado: Cath Placed During This Visit: yes Reason for Continuing Indwelling Catheter: Accurate Measurement of Urinary Output in Critically Ill Patients Urinary Catheter Date of Insertion: 03/29/20 Urinary Catheter Time of Insertion: 12:35 Data Micro: Micro: Microbiology 04/01/20 17:20 Gram Stain - Final Sputum - Endotrac heal Tube Aspirate Sputum Culture - F inal Stenotrophomona s maltophilia A&P Assessment and plan (1) Pneumonia due to COVID-19 virus: The patient has suffered from ARDS secondary to COVID-19 pneumonia. Her initial diagnosis was made on March 20. She was intubated on April 01. The patient has received remdesivir for 5 days which was restarted again on April 03. There is no indication at this point for remdesivir therapy for this patient. No improved outcome measures are seen in patients were intubated with remdesivir. Would recommend discontinuing remdesivir especially since the patient is requiring 40% oxygen and showing signs of improvement. The patient has also completed 13 days therapy of dexamethasone. Would recommend stopping dexamethasone at this point especially given the secondary bacterial infection with Stenotrophomonas maltophilia. The stenotrophomonas could be a very resistant organism but fortunately the isolate from this patient is sensitive to Bactrim and levofloxacin. The patient is currently fully anticoagulated with apixaban. Status: Acute (2) ARDS (adult respiratory distress syndrome): Patient had undergone prone positioning for 3 days. Currently she is improving. I agree with reducing the sedation and waking up the patient. Currently she is on volume control mechanical ventilation. The patient is more awake, the patient can be switched to pressure support ventilation. Similarly, avoidance of corticosteroid therapy would likely help with muscle atrophy and critical care myeloneuropathy. I am hopeful that the patient will be able to be extubated in the near future. The patient needs to be started on enteral feed. She has not received any enteral feeding in the past 4 days. Status: Acute (3) Secondary bacterial pneumonia: The patient is currently on vancomycin, Zosyn and levofloxacin. We are in the process of de-escalating the antibiotic therapy based on the culture results. If the MRSA PCR is negative the patient can certainly be taken off of vancomycin. I would switch the levofloxacin to Bactrim which is the first-line therapy for Stenotrophomonas maltophilia. However, if the patient has intolerance to Bactrim or does not improve hemodynamically with Bactrim a second line agent can be added to the Bactrim. Status: Acute (4) Septic shock: The patient is currently on Levophed. I am hoping she will come off of it once the sedation is reduced and the Bactrim started. Status: Acute Coding Level of Care Code Acute Professional Poker Player for [facility] Fwd Diagnoses Pneumonia due to COVID-19 virus U07.1; J12.89 ARDS (adult respiratory distress syndrome) J80 Secondary bacterial pneumonia J15.9 Septic shock A41.9; R65.21
[2020-04-05 17:35] LABS: NT Pro B Type Natriuretic Pept 251 pg/mL (0-125); Procalcitonin 0.09 ng/mL (0-0.5); Thyroid Stimulating Hormone 0.15 uIU/mL (0.27-4.20)
[2020-04-05 17:46] LABS: Iron 60 ug/dL (37-145); Lactate Dehydrogenase 346 U/L (135-214); Total Iron Binding Capacity 107 mcg/dl; Unsaturated Iron Binding 47 ug/dL (112-347)
[2020-04-05 18:12] LABS: Glucose Point of Care 144 mg/dL (70-110)
[2020-04-05] MEDS: sulfamethoxazole-trimeth inj 400 MG in dextrose 5 % 500 ML 500 MG IV (18:21)
[2020-04-05] MEDS: budesonide 0.5 mg/2 mL Neb INHALATION (20:04)
[2020-04-06] VITALS (43 sets, daily range): BP systolic 78–113; BP diastolic 50–72; PULSE 83–115; RESP 16–27; TEMP 36.7–37.3; O2SAT 83–99
[2020-04-06] MEDS: propofol 1,000 MG/100 ML INJ 13.5 MG IV ×2 (00:34→17:36)
[2020-04-06 00:53] LABS: Glucose Point of Care 149 mg/dL (70-110)
[2020-04-06] MEDS: lactulose oral liq 20 gm/30 mL UDC 30 GM PO (01:41)
[2020-04-06] MEDS: sulfamethoxazole-trimeth inj 400 MG in dextrose 5 % 500 ML 500 MG IV ×2 (01:42→11:12)
[2020-04-06] MEDS: ipratropium-albuterol 3 mL Neb INHALATION ×6 (03:00→23:43)
--- NOTE | 2020-04-06 03:47 | PC.NURSE ---
ASSUMING CARE Patient intubated and nurse is able to arouse her. Patient spontaneously opened eyes to nurses voice and followed command of blinking twice but was unable to squeeze nurses hand. Patient on 25 mcg/kg/min of propofol and 50 mcg/hour of fentanyl. Patient sinus rhythm and oxygen saturation in upper 90s.
[2020-04-06 05:30] LABS: ABG PCO2 38.6 mmHg (35-45); ABG PH Result 7.45 (7.35-7.45); Base Excess ABG 2.6 mmol/L (-2.0-2.0); Blood Gas Sample Type Arterial; HCO3 ABG 26.7 mmol/L (22-26); HGB O2 Sat 88.8 % (95-100); Ionized Calcium Level - ABG 1.2 mmol/L (1.1-1.4); Methemoglobin 1.4 % (0.4-1.5); Oxygen Saturation ABG 90.9; PO2 ABG 56.8 mmHg (80.0-100.0); Potassium Level - ABG 3.4 mmol/L (3.5-5.0); Total Hemoglobin 12.4 g/dL (12-16)
[2020-04-06 05:31] LABS: Blood Gas Operator Identificat HARKR; Blood Gas Sample Site Brachial, left; Blood Gas Tidal Volume 0.38; Oxygen Device VENT
[2020-04-06 05:36] LABS: Basophils % 0.2 %; Hematocrit 33.3 % (37.0-47.0); Hemoglobin 11.2 g/dL (11.5-15.3); Lymphocytes # 1.2 10^3/uL (0.8-4.8); Mean Corpuscular HGB Conc 33.6 g/dL (30.0-36.0); Mean Corpuscular Hemoglobin 33.9 pg (28.0-34.0); Mean Corpuscular Volume 100.9 fL (81-99); Mean Platelet Volume 10.5 fL (7.4-10.4); Monocytes # 0.3 10^3/uL (0.2-0.9); Monocytes % 3.1 %; Neutrophils # 9.08 10^3/uL (1.8-7.7); Neutrophils % 81.8 %; Nucleated Red Blood Cells # 0.1 /100WBC; Nucleated Red Blood Cells % 0.5 %; Platelet Count 214 10^3/cmm (130-400); Red Cell Distribution Width 12.8 % (12.1-15.1); White Blood Count 11.1 10^3/uL (4.0-10.0)
[2020-04-06 05:37] LABS: Glucose Point of Care 176 mg/dL (70-110)
--- NOTE | 2020-04-06 05:49 | PC.NURSE ---
BOWEL MOVEMENT Per day shift nurse and Dr. Daigle, patient to also have AM xray of kidneys, ureters, and bladder if no BM by morning. Patient had medium sized soft BM and bowel sounds are active.
[2020-04-06 05:55] LABS: Alanine Aminotransferase 30 U/L (0-33); Albumin Level 2.4 g/dL (3.5-5.2); Alkaline Phosphatase 81 IU/L (35-105); Anion Gap 14.5 (5-19); Aspartate Amino Transferase 32 U/L (0-32); Blood Urea Nitrogen 25 mg/dL (8-23); Calcium 7.8 mg/dL (8.5-10.5); Carbon Dioxide 26 mmol/L (22-29); Chloride 98 mmol/L (98-107); Globulin 2.9 g/dL (1.3-4.6); Glucose 222 mg/dL (65-115); Osmolality Calculated 291 mOsm/kg (285-295); Potassium 3.5 mmol/L (3.5-5.1); Sodium 135 mmol/L (136-145); Total Bilirubin 0.2 mg/dL (0.15-1.2); Total Protein 5.3 g/dL (6.6-8.7)
[2020-04-06 06:00] LABS: Magnesium 2.1 mg/dL (1.7-2.3)
--- NOTE | 2020-04-06 06:00 | XR_ITS ---
WS: [id number] Portable AP upright chest, 04/06/2020 Clinical Data: covid Comparison: Portable chest, 04/03/2020 Findings: The diffuse bilateral pulmonary opacities remain unchanged. The most dense opacity is in th e left lower lobe. The endotracheal tube, nasogastric tube and right internal jugular venous catheter remain in the same position. The heart size is normal. There are monitor leads on the chest wall. XR/XR chest 1V portable [id number] Impression: 1. Diffuse bilateral pulmonary opacities unchanged. 2. Multiple tubes unchanged.
[2020-04-06] MEDS: famotidine 20 mg/2 mL INJ IVP ×2 (06:03→18:07)
[2020-04-06] MEDS: piperacillin-tazobactam 3.375 GM in sodium chloride 0.9% (plus) 50 ML IV ×3 (06:03→22:21)
[2020-04-06 06:04] LABS: Fibrinogen 436 mg/dL (174-498)
[2020-04-06 06:07] LABS: Creatine Phosphokinase 47 U/L (26-192); Lactate Dehydrogenase 318 U/L (135-214); NT Pro B Type Natriuretic Pept 321 pg/mL (0-125)
--- NOTE | 2020-04-06 06:16 | PC.NURSE ---
SHIFT SUMMARY Patients ventilator settings remained the same throughout the shift. Patient given bath and linens changed. While doing this, patient had minor oxygen desaturation with turns but increased once patient place back supine. Patient on 15 mcg/kg/min of propofol and 50 mcg/hour of fentanyl. While bathing, patients eyes were open for majority of time and when patient was asked if her bath was making her feel better, the patient shook her head yes. Patient is following commands, but takes time to do so and appears moderately weak in her extremities. 1250 mL urine output and 1 moderate BM.
[2020-04-06 06:22] LABS: Ferritin 2988 ng/mL (15-150)
[2020-04-06] MEDS: propofol 1,000 MG/100 ML INJ 8.1 MG IV (07:42)
[2020-04-06] MEDS: budesonide 0.5 mg/2 mL Neb INHALATION ×2 (07:52→19:59)
[2020-04-06] MEDS: zinc gluconate 50 mg Tablet PO (08:55)
[2020-04-06] MEDS: ascorbic acid 500 mg Tablet 1000 MG PO ×2 (08:55→18:07)
[2020-04-06] MEDS: apixaban 5 mg Tablet PO ×2 (08:55→18:07)
--- NOTE | 2020-04-06 09:09 | PC.SOCIAL ---
*IMM* Not updated, patient is intubated, not discharging in the next day or two.
--- NOTE | 2020-04-06 10:11 | PC.NURSE ---
Called and spoke with Sandeep to get Bactrim IV.
--- NOTE | 2020-04-06 10:45 | P.PN_ITS ---
Subjective Subjective: Interval history: The patient was seen and examined. She was easily arousable and following simple commands. I changed her ventilator setting to pressure support ventilation with good tidal volume Apparently, the patient failed spontaneous breathing trial this morning after suffering from tachypnea and hypoxia. She is off of Levophed. On Bactrim now for Stenotrophomonas maltophilia pulmonary function. Medications: Reviewed: Yes Vitals/I&O/Wt Last Vital Signs Temp 99.0 F 04/06/20 08:00 Pulse 99 04/06/20 08:00 Resp 19 H 04/06/20 10:09 BP 113/67 04/06/20 08:00 Pulse Ox 90 04/06/20 08:00 04/05/20 04/06/20 04/06/20 22:59 06:59 14:59 Intake Total 675 / 7315.269 4692.05 / 2606.003 131.32 / 131.32 Output Total 100 / 420 1250 / 1670 Balance 575 / 1002.953 -66.95 / 936.003 131.32 / 131.32 Weight last 48 hrs Weight 201 lb 8 oz Physical Exam Narrative: EXAM NARRATIVE: NARRATIVE: General: Patient is intubated and sedated. Easily arousable and following simple commands. Still unable to move her extremities. Neck: No JVD Respiratory: Auscultation: Crackles at bilateral lung bases, no wheezing or rhonchi Cardiovascular: Regular rate and rhythm, S1-S2 present, no murmur, mild peripheral edema. Abdomen: Soft, positive bowel sound Skin: No rash, generalized edema Neuro: Patient is sedated, intermittently responsive Urinary Catheter Management^: Preciado: Cath Placed During This Visit: yes Reason for Continuing Indwelling Catheter: Accurate Measurement of Urinary Output in Critically Ill Patients Urinary Catheter Date of Insertion: 03/29/20 Urinary Catheter Time of Insertion: 12:35 Data : 04/06/20 03:39 04/06/20 03:39 Micro: Microbiology 04/05/20 14:36 Blood Culture - Preliminary Blood SPECIMEN COLLECTED 04/05/20 14:36 Blood Culture - Preliminary Blood SPECIMEN COLLECTED 04/01/20 17:20 Gram Stain - Final Sputum - Endotracheal Tube Aspirate Sputum Culture - Final Stenotrophomonas maltophilia Attestation for Other Data: I personally reviewed and interpreted the following: Other data: I have reviewed the patient's laboratory, microbiologic and radiologic data. The chest x-ray obtained from this morning revealed bilateral infiltrate like before. The white count has remained stable. A&P Assessment and plan (1) Pneumonia due to COVID-19 virus: The patient has suffered from ARDS secondary to COVID-19 pneumonia. Her initial diagnosis was made on March 20. She was intubated on April 01. The patient has received remdesivir for 5 days which was restarted again on April 03. There is no indication at this point for remdesivir therapy for this patient. No improved outcome measures are seen in patients were intubated with remdesivir. Would recommend discontinuing remdesivir especially since the patient is requiring 50% oxygen and showing signs of improvement. The patient has also completed 13 days therapy of dexamethasone. Would recommend stopping dexamethasone at this point especially given the secondary bacterial infection with Stenotrophomonas maltophilia. Status: Acute (2) ARDS (adult respiratory distress syndrome): Patient had undergone prone positioning for 3 days. Currently she is improving. The patient is more responsive today compared to yesterday. She had good tidal volume and pressure support ventilation. At this point I would recommend aggressive diuresis as the IV Bactrim comes with a lot of IV fluid. She will likely require standing Lasix twice a day. The goal is going to be keeping her even or mildly negative. If the patient tolerates pressure support ventilation she can remain on pressure support ventilation otherwise this can be used alternatively with full control ventilation. Status: Acute (3) Secondary bacterial pneumonia: The patient is broadly covered with antibiotic as well as had been started on Bactrim for Stenotrophomonas maltophilia. The patient is off of pressors now. Status: Acute (4) Septic shock: The patient is off of pressors. I expect the patient to continue make recovery. Once the patient is adequately diuresed I believe that she will be okay on pressure support ventilation. And once her mental status gets better she will be a candidate for extubation hopefully in the near future. Status: Acute Attestations Medical Necessity Statement*: Will defer to the primary team Coding Level of Care Code Acute Special Assets Officer for [facility]wkb Diagnoses Pneumonia due to COVID-19 virus U07.1; J12.89 ARDS (adult respiratory distress syndrome) J80 Secondary bacterial pneumonia J15.9 Septic shock A41.9; R65.21
--- NOTE | 2020-04-06 11:04 | PC.NURSE ---
Called pharmacy for reminder of need for Bactrim
[2020-04-06 11:10] LABS: Vancomycin Trough 9.7 ug/mL (10-15)
[2020-04-06] MEDS: sodium chloride 0.9% (100 ml) 100 ML 10 ML (11:18)
[2020-04-06] MEDS: vancomycin 1,250 MG/250 ML PIGGYBACK 250 MG IV (12:25)
[2020-04-06 12:27] LABS: Glucose Point of Care 91 mg/dL (70-110)
--- NOTE | 2020-04-06 14:43 | P.PN_ITS ---
Subjective Subjective: Interval history: No acute events overnight. On examination patient is intubated and sedated though is easily arousable to physical stimulus. Currently she is on propofol and fentanyl. Levophed was stopped earlier in the day. She is maintaining her mean arterial pressure over 65 with systolic blood pressure on examination 108. Current ventilator settings are tidal volume of 450, FiO2 60% PEEP of 10 rate of 14. Medications: Reviewed: Yes Vitals/I&O/Wt Last Vital Signs Temp 99.0 F 04/06/20 12:00 Pulse 88 04/06/20 14:20 Resp 17 04/06/20 13:50 BP 108/72 04/06/20 14:00 Pulse Ox 91 04/06/20 14:00 04/05/20 04/06/20 04/06/20 22:59 06:59 14:59 Intake Total 675 / 5121.508 4368.05 / 2606.003 131.32 / 131.32 Output Total 100 / 420 1250 / 1670 1410 / 1410 Balance 575 / 1002.953 -66.95 / 936.003 -1278.68 / -1278.68 Weight last 48 hrs Weight 91.399 kg Physical Exam Narrative: EXAM NARRATIVE: General: Sedated, intubated, but arousable to physical stimulus HEENT: PERRLA, pupils bilaterally equal and reactive Chest: Coarse crackles bilaterally, decreased air entry bilateral lower zones, diffuse rhonchi all over the lung brand CVS: S1-S2 regular, no murmurs, no tachycardia, no gallops, no rubs Abdomen: Soft, nontender, no organomegaly, bowel sounds present Neuro: Sedated, Extremities: Bilateral puffy 1+, pulses bilaterally palpable Urinary Catheter Management^: Preciado: Cath Placed During This Visit: yes Reason for Continuing Indwelling Catheter: Accurate Measurement of Urinary Output in Critically Ill Patients Urinary Catheter Date of Insertion: 03/29/20 Urinary Catheter Time of Insertion: 12:35 Data : 04/06/20 03:39 04/06/20 03:39 Micro: Microbiology 04/05/20 18:35 Bacterial Antigens - Final Urine,Clean Catch 04/05/20 14:36 Blood Culture - Preliminary Blood SPECIMEN COLLECTED 04/05/20 14:36 Blood Culture - Preliminary Blood SPECIMEN COLLECTED 04/01/20 17:20 Gram Stain - Final Sputum - Endotracheal Tube Aspirate Sputum Culture - Final Stenotrophomonas maltophilia A&P Assessment and plan (1) Sepsis due to severe acute respiratory syndrome coronavirus 2 (SARS-CoV-2): Status: Acute (2) ARDS (adult respiratory distress syndrome): Status: Acute (3) Secondary bacterial pneumonia: Status: Acute (4) COVID-19: Status: Acute (5) Hypertension: Status: Acute Additional A&P Information ARDS and sepsis secondary to COVID-19 pneumonia with superadded bacterial infection: Septic shock: Currently on Levophed. Wean off Levophed keeping mean arterial pressure over 65. Continue with sedation at current dose. Daily sedation vacation Daily ABGs. Procalcitonin, TSH, proBNP, inflammatory markers appreciated. Urine Legionella and bacterial antigen negative. Sputum culture positive for stenotrophomonas. Normal remdesivir and dexamethasone as patient has already finished a course of antiviral and more than 13 days of steroids. Appreciate pulmonology recommendations. Continue with Zosyn and Bactrim for now. Stop vancomycin. We will continue to follow cultures and de-escalate antibiotics further. Start patient on DuoNebs every 4 hours and budesonide twice daily. Continue with Eliquis 5 mg twice daily. Continue with tube feeds at current dose. Patient tolerating well though having mild diarrhea. Start bowel regimen for now. No need for stool studies for now. Dose Lasix daily as per the fluid status. We will give Lasix 40 mg IV today. Will monitor input and output. Overall 1200 - in last 24 hours. Echocardiogram done earlier in the admission shows an EF of 60% with normal LV cavity size with mild aortic regurgitation and normal PASP. DVT PPX : On Eliquis 5 mg q12 h daily Lines :RT I.J ( 04/01 ), O.G Tube ( 04/01 ) Nutrition: Start patient on tube feeds with Ensure starting 20 cc/h going up to 10 cc every 4 hour with free water flushes 100 cc every 6 hours. Full code. Severely guarded prognosis. Attestations Medical Necessity Statement*: Requires further hospitalization for management of ARDS due to COVID-19 pneumonia, septic shock, ventilator dependent. Critical Care Time: Critical Care Time (min): 70 Coding Level of Care Code Acute Grooming Assistant for [facility] Fw Diagnoses Sepsis due to severe acute respiratory syndrome coronavirus 2 (SARS-CoV-2) U07.1; A41.89 ARDS (adult respiratory distress syndrome) J80 Secondary bacterial pneumonia J15.9 COVID-19 U07.1 Hypertension I10
[2020-04-06 18:08] LABS: Glucose Point of Care 84 mg/dL (70-110)
[2020-04-06] MEDS: dexmedetomidine 400 MCG in sodium chloride 0.9% (100 ml) 100 ML 7 MCG IV (18:08)
--- NOTE | 2020-04-06 20:12 | PC.NURSE ---
ASSUMING CARE Patient remains mechanically ventilated on VC-AC mode, FiO2 at 60%, PEEP of 10, Rate of 14, and TV 450. Patient spontaneously opening eyes, following commands and communicating by nodding yes or no. Rectal tube in place, urinary catheter in place. Propofol at 20 mcg/kg/min, fentanyl at 5 mcg/hour, precedex at 0.3 mcg/kg/hour, zosyn and bactrim running. Patient turned to right side with day shift nurse and nods that she is comfortable.
[2020-04-06 23:17] LABS: Glucose Point of Care 94 mg/dL (70-110)
[2020-04-07] VITALS (37 sets, daily range): BP systolic 76–106; BP diastolic 48–69; PULSE 82–106; RESP 16–28; TEMP 36.9–37; O2SAT 90–95
--- NOTE | 2020-04-07 01:19 | PC.NURSE ---
GASTRIC CONTENTS Upon checking residuals through orogastric tube, nurse observed dark red gastric contents. Dr. Isaac notified via telephone and asked if she wanted a sample sent to lab for gastric occult blood and if she was okay with continuing tube feeding diet. Physician asked if she was on any anticoagulants, notified of eliquis BID and wanted to continue with all interventions in place at this time, no sample needed, and to monitor contents closely for increased amount or bright red contents and to notify her if this occurred. Will continue to monitor.
[2020-04-07] MEDS: sulfamethoxazole-trimeth inj 400 MG in dextrose 5 % 500 ML 500 MG IV ×2 (02:50→10:20)
[2020-04-07] MEDS: ipratropium-albuterol 3 mL Neb INHALATION ×6 (03:36→23:34)
[2020-04-07 04:15] LABS: ABG PCO2 37.3 mmHg (35-45); ABG PH Result 7.44 (7.35-7.45); Alveolar-Arterial Oxygen Gradi 41.2 mmHg (5-10); Arterial Blood Gas Hematocrit 38.4 % (37-47); Base Excess ABG 1.5 mmol/L (-2.0-2.0); Blood Gas Allen Test Pos; Blood Gas Operator Identificat JB; Blood Gas Sample Site Radial, right; Blood Gas Sample Type Arterial; Blood Gas Tidal Volume 0.45; Carboxyhemoglobin 0.8 %THgb (0.4-20.1); HCO3 ABG 25.5 mmol/L (22-26); HGB O2 Sat 90.9 % (95-100); Ionized Calcium Level - ABG 1.2 mmol/L (1.1-1.4); Methemoglobin 1.3 % (0.4-1.5); Oxygen Device VENT; Oxygen Saturation ABG 92.8; PO2 ABG 61.1 mmHg (80.0-100.0); Potassium Level - ABG 3.5 mmol/L (3.5-5.0); Total Hemoglobin 12.5 g/dL (12-16)
[2020-04-07 04:24] LABS: Basophils % 0.2 %; Eosinophils # 0.2 10^3/uL (0.0-0.8); Eosinophils % 1.6 %; Hematocrit 31.6 % (37.0-47.0); Hemoglobin 10.6 g/dL (11.5-15.3); Lymphocytes # 1.6 10^3/uL (0.8-4.8); Lymphocytes % 13.7 %; Mean Corpuscular HGB Conc 33.5 g/dL (30.0-36.0); Mean Corpuscular Hemoglobin 34.2 pg (28.0-34.0); Mean Corpuscular Volume 101.9 fL (81-99); Mean Platelet Volume 10.2 fL (7.4-10.4); Monocytes # 0.4 10^3/uL (0.2-0.9); Neutrophils % 79.2 %; Nucleated Red Blood Cells # 0.1 /100WBC; Nucleated Red Blood Cells % 0.7 %; Platelet Count 197 10^3/cmm (130-400); Red Cell Distribution Width 13.3 % (12.1-15.1); White Blood Count 11.5 10^3/uL (4.0-10.0)
[2020-04-07 04:50] LABS: Fibrinogen 397 mg/dL (174-498)
[2020-04-07 04:51] LABS: Alanine Aminotransferase 27 U/L (0-33); Albumin Level 2.4 g/dL (3.5-5.2); Alkaline Phosphatase 87 IU/L (35-105); Anion Gap 9.8 (5-19); Aspartate Amino Transferase 31 U/L (0-32); Blood Urea Nitrogen 22 mg/dL (8-23); Calcium 7.7 mg/dL (8.5-10.5); Carbon Dioxide 27 mmol/L (22-29); Chloride 106 mmol/L (98-107); Creatine Phosphokinase 47 U/L (26-192); Globulin 2.7 g/dL (1.3-4.6); Glucose 114 mg/dL (65-115); Lactate Dehydrogenase 536 U/L (135-214); NT Pro B Type Natriuretic Pept 323 pg/mL (0-125); Osmolality Calculated 292 mOsm/kg (285-295); Potassium 3.8 mmol/L (3.5-5.1); Sodium 139 mmol/L (136-145); Total Bilirubin 0.2 mg/dL (0.15-1.2); Total Protein 5.1 g/dL (6.6-8.7)
[2020-04-07 05:09] LABS: Ferritin 2568 ng/mL (15-150)
[2020-04-07] MEDS: dexmedetomidine 400 MCG in sodium chloride 0.9% (100 ml) 100 ML 11.7 MCG IV ×2 (05:12→14:48)
[2020-04-07 05:15] LABS: Glucose Point of Care 148 mg/dL (70-110)
[2020-04-07] MEDS: famotidine 20 mg/2 mL INJ IVP ×2 (05:45→17:16)
[2020-04-07] MEDS: piperacillin-tazobactam 3.375 GM in sodium chloride 0.9% (plus) 50 ML IV ×3 (05:46→23:49)
--- NOTE | 2020-04-07 06:31 | PC.NURSE ---
SHIFT SUMMARY Patient has done well this shift. 625 mL urine output this shift and 110 mL out of rectal tube. Patient is following commands and communicating with nurse by nodding yes and no. Propofol weaned off last night and patient currently on fentanyl and precedex. Patient has been hypotensive at times, but since propofol turned off, patients MAP has been greater than 65. No significant residuals through OG tube and no more dark red gastric contents when OG tube aspirated. Ventilator settings remained the same throughout the shift.
[2020-04-07] MEDS: budesonide 0.5 mg/2 mL Neb INHALATION ×2 (08:15→19:57)
[2020-04-07 10:03] LABS: Free T4 Free Thyroxine 1.14 ng/dL (0.82-1.77); T3 Free 1.5 PG/ML (2.0-4.4)
[2020-04-07] MEDS: zinc gluconate 50 mg Tablet PO (10:19)
[2020-04-07] MEDS: ascorbic acid 500 mg Tablet 1000 MG PO ×2 (10:19→17:16)
[2020-04-07] MEDS: apixaban 5 mg Tablet PO ×2 (10:20→17:16)
[2020-04-07] MEDS: propofol 1,000 MG/100 ML INJ 13.5 MG IV (10:21)
[2020-04-07 12:51] LABS: Glucose Point of Care 153 mg/dL (70-110)
--- NOTE | 2020-04-07 16:06 | P.PN_ITS ---
Subjective Subjective: Interval history: No acute events overnight. On examination patient intubated and sedated. Has remained hemodynamically stable with mean pressure more than 70 mmHg, afebrile with documented urine output in last 24 hours of 2800 cc with net negative of 250 cc. Currently she is on propofol 20, fentanyl 10, Precedex 0.5 with ventilator setting of FiO2 60% tidal volume 500, PEEP of 10 saturating 92%. As per nursing staff patient failed pressure support today morning because she developed tachycardia and tachypnea. Vitals and labs noted. Medications: Reviewed: Yes Vitals/I&O/Wt Last Vital Signs Temp 98.4 F 04/07/20 08:00 Pulse 91 04/07/20 16:02 Resp 17 04/07/20 16:02 BP 90/59 04/07/20 13:00 Pulse Ox 93 04/07/20 16:02 04/07/20 04/07/20 04/07/20 06:59 14:59 22:59 Intake Total 1166.07 / 2556.887 1572.775 / 1572.775 Output Total 735 / 2805 Balance 431.07 / -417.647 2464.775 / 1572.775 Weight last 48 hrs Weight 91.58 kg Weight 91.399 kg Physical Exam Narrative: EXAM NARRATIVE: General: Sedated, intubated, but arousable to physical stimulus HEENT: PERRLA, pupils bilaterally equal and reactive Chest: Coarse crackles bilaterally, decreased air entry bilateral lower zones, diffuse rhonchi all over the lung brand CVS: S1-S2 regular, no murmurs, no tachycardia, no gallops, no rubs Abdomen: Soft, nontender, no organomegaly, bowel sounds present Neuro: Sedated, Extremities: Bilateral puffy 1+, pulses bilaterally palpable Urinary Catheter Management^: Preciado: Cath Placed During This Visit: yes Reason for Continuing Indwelling Catheter: Accurate Measurement of Urinary Output in Critically Ill Patients Urinary Catheter Date of Insertion: 03/29/20 Urinary Catheter Time of Insertion: 12:35 Data : 04/07/20 03:15 04/07/20 03:15 Micro: Microbiology 04/05/20 14:36 Blood Culture - Preliminary Blood NEGATIVE TO DATE 04/05/20 14:36 Blood Culture - Preliminary Blood NEGATIVE TO DATE 04/05/20 18:35 Bacterial Antigens - Final Urine,Clean Catch A&P Assessment and plan (1) Sepsis due to severe acute respiratory syndrome coronavirus 2 (SARS-CoV-2): Status: Acute (2) ARDS (adult respiratory distress syndrome): Status: Acute (3) Secondary bacterial pneumonia: Status: Acute (4) COVID-19: Status: Acute (5) Hypertension: Status: Acute Additional A&P Information ARDS and sepsis secondary to COVID-19 pneumonia with superadded bacterial infection: Septic shock: Resolved. Levophed weaned off. Mean arterial pressure more than 70s regularly. Continue with sedation at current dose. Daily sedation vacation. Very short of propofol early tomorrow morning. Daily ABGs. Procalcitonin, TSH, proBNP, inflammatory markers appreciated. Urine Legionella and bacterial antigen negative. Sputum culture positive for stenotrophomonas. No more remdesivir and dexamethasone as patient has already finished a course of antiviral and more than 13 days of steroids. Appreciate pulmonology recommendations. Continue with Zosyn to cover for potential Pseudomonas. Continue with Bactrim for stenotrophomonas but will switch over to oral as patient is off pressors now. We will do overall 5 to 7-day course. Day 3 today. Start patient on DuoNebs every 4 hours and budesonide twice daily. Continue with Eliquis 5 mg twice daily. Continue with tube feeds at current dose. Patient tolerating well though having mild diarrhea. Stop bowel regimen for now. No need for stool studies for now. Start patient on Lasix 40 mg IV daily. We will try to keep patient on negative side. Patient net 3 L positive since admission. Echocardiogram done earlier in the admission shows an EF of 60% with normal LV c avity size with mild aortic regurgitation and normal PASP. DVT PPX : On Eliquis 5 mg q12 h daily Lines :RT I.J ( 04/01 ), O.G Tube ( 04/01 ) Nutrition: Start patient on tube feeds with Ensure starting 20 cc/h going up to 10 cc every 4 hour with free water flushes 100 cc every 6 hours. Full code. Severely guarded prognosis. Patient's son updated regarding her health and intubated status. All the questions were answered. Attestations Medical Necessity Statement*: Requires further hospitalization for management of ARDS and sepsis because of COVID-19 pneumonia and stenotrophomonas pneumonia. Time Spent in Patient Care: Greater than 35 minutes (>than 50% of time spent in counselling and/or direct pt care on unit) . Coding Level of Care Code Acute Stations Superintendent for [facility] [facility] Diagnoses Sepsis due to severe acute respiratory syndrome coronavirus 2 (SARS-CoV-2) U07.1; A41.89 ARDS (adult respiratory distress syndrome) J80 Secondary bacterial pneumonia J15.9 COVID-19 U07.1 Hypertension I10
[2020-04-07 17:02] LABS: Glucose Point of Care 81 mg/dL (70-110)
[2020-04-07] MEDS: sulfamethoxazole-trimeth DS 160-800 mg Tablet 2.5 TAB PO (17:17)
[2020-04-07] MEDS: propofol 1,000 MG/100 ML INJ 8.1 MG IV (19:02)
[2020-04-08] VITALS (28 sets, daily range): BP systolic 78–128; BP diastolic 49–67; PULSE 71–103; RESP 16–32; TEMP 37.2–37.8; O2SAT 88–93
[2020-04-08 00:22] LABS: Glucose Point of Care 107 mg/dL (70-110)
[2020-04-08] MEDS: sulfamethoxazole-trimeth DS 160-800 mg Tablet 2.5 TAB PO ×2 (01:02→11:12)
[2020-04-08] MEDS: dexmedetomidine 400 MCG in sodium chloride 0.9% (100 ml) 100 ML 11.7 MCG IV (02:18)
[2020-04-08] MEDS: ipratropium-albuterol 3 mL Neb INHALATION ×5 (03:00→20:25)
[2020-04-08 03:07] LABS: ABG PH Result 7.47 (7.35-7.45); Alveolar-Arterial Oxygen Gradi 37.2 mmHg (5-10); Arterial Blood Gas Hematocrit 29.1 % (37-47); Base Excess ABG 3.4 mmol/L (-2.0-2.0); Blood Gas Allen Test Pos; Blood Gas Sample Site Radial, right; Blood Gas Sample Type Arterial; Carboxyhemoglobin 0.9 %THgb (0.4-20.1); HCO3 ABG 27.4 mmol/L (22-26); HGB O2 Sat 90.6 % (95-100); Ionized Calcium Level - ABG 1.2 mmol/L (1.1-1.4); Methemoglobin 0.7 % (0.4-1.5); Oxygen Device VENT; Oxygen Saturation ABG 92.1; PO2 ABG 56.8 mmHg (80.0-100.0); Potassium Level - ABG 4.1 mmol/L (3.5-5.0); Total Hemoglobin 9.5 g/dL (12-16)
--- NOTE | 2020-04-08 03:14 | PC.NURSE ---
ASSUMING CARE Patient resting in bed on mechanical ventilation. Patients propofol at 15 mcg/kg/min, fentanyl at 80 mcg/hour, and precedex at 0.5 mcg/kg/hour. Pulmocare tube feeds running at 50 mL/hour. Rectal tube and zayas catheter patent and draining. Oral care done. Patient is awake and is able to communicate by nodding head yes and no and follows commands.
[2020-04-08] MEDS: propofol 1,000 MG/100 ML INJ 8.1 MG IV ×2 (03:18→05:44)
[2020-04-08 05:32] LABS: Glucose Point of Care 124 mg/dL (70-110)
[2020-04-08 05:39] LABS: Basophils % 0.2 %; Eosinophils # 0.1 10^3/uL (0.0-0.8); Eosinophils % 1.5 %; Hematocrit 27.7 % (37.0-47.0); Lymphocytes # 1.4 10^3/uL (0.8-4.8); Lymphocytes % 14.6 %; Mean Corpuscular HGB Conc 32.5 g/dL (30.0-36.0); Mean Corpuscular Hemoglobin 33.7 pg (28.0-34.0); Mean Corpuscular Volume 103.7 fL (81-99); Mean Platelet Volume 10.3 fL (7.4-10.4); Monocytes # 0.2 10^3/uL (0.2-0.9); Monocytes % 2.5 %; Neutrophils # 7.59 10^3/uL (1.8-7.7); Neutrophils % 79.6 %; Nucleated Red Blood Cells % 0.3 %; Platelet Count 182 10^3/cmm (130-400); Red Blood Count 2.67 10^6/uL (4.1-5.3); Red Cell Distribution Width 13.7 % (12.1-15.1); White Blood Count 9.5 10^3/uL (4.0-10.0)
[2020-04-08] MEDS: famotidine 20 mg/2 mL INJ IVP ×2 (05:45→17:35)
--- NOTE | 2020-04-08 06:00 | XRR_ITS ---
PROCEDURE INFORMATION: Exam: XR Chest, 1 View Exam date and time: 04/08/2020 4:53 AM Age: 74 years old Clinical indication: Dyspnea; Additional info: Covid TECHNIQUE: Imaging protocol: XR of the chest Views: 1 view. COMPARISON: CR XR chest 1V portable [id number] 04/06/2020 5:39 AM FINDINGS: The heart size is normal. An endotracheal tube is seen with the tip above the loni. A nasogastric tube is seen with the tip in the stomach. A right IJ central line is present with the tip overlying the right atrium. The lungs show bilateral heterogenous infiltrates. No pneumothorax is seen. XR/XR chest 1V portable [id number] IMPRESSION: No pneumothorax is seen.
[2020-04-08 06:11] LABS: Alanine Aminotransferase 20 U/L (0-33); Albumin Level 2.9 g/dL (3.5-5.2); Alkaline Phosphatase 82 IU/L (35-105); Anion Gap 11.9 (5-19); Aspartate Amino Transferase 24 U/L (0-32); Blood Urea Nitrogen 14 mg/dL (8-23); Calcium 8.1 mg/dL (8.5-10.5); Carbon Dioxide 27 mmol/L (22-29); Chloride 103 mmol/L (98-107); Globulin 2.4 g/dL (1.3-4.6); Glucose 102 mg/dL (65-115); Osmolality Calculated 287 mOsm/kg (285-295); Potassium 3.9 mmol/L (3.5-5.1); Sodium 138 mmol/L (136-145); Total Bilirubin 0.4 mg/dL (0.15-1.2); Total Protein 5.3 g/dL (6.6-8.7)
[2020-04-08 06:14] LABS: Fibrinogen 442 mg/dL (174-498)
[2020-04-08 06:16] LABS: D Dimer 1.73 ug/mIFEU (0-0.59)
[2020-04-08] MEDS: piperacillin-tazobactam 3.375 GM in sodium chloride 0.9% (plus) 50 ML IV ×2 (06:30→17:34)
--- NOTE | 2020-04-08 06:43 | PC.NURSE ---
SHIFT SUMMARY Patient had uneventful night. Patient still follows commands and communicates via yes and no head nods. Patient has propofol running at 15 mcg/kg/min, fentanyl at 75 mcg/hour, and precedex at 0.5 mcg/kg/hour. Patient had 1550 mL urine output and 50 mL out of rectal tube. Patients highest temp was 99.0, but is now down to 99.0.
[2020-04-08] MEDS: budesonide 0.5 mg/2 mL Neb INHALATION ×2 (08:14→20:25)
--- NOTE | 2020-04-08 09:42 | PC.SOCIAL ---
IMM Updated Updated pt's son Eb, via phone, on Pg 2 IMM. No questions voiced. Signed, dated, & timed copy to be scanned into chart.
[2020-04-08 11:07] LABS: Glucose Point of Care 113 mg/dL (70-110)
[2020-04-08] MEDS: apixaban 5 mg Tablet PO ×2 (11:11→17:35)
[2020-04-08] MEDS: zinc gluconate 50 mg Tablet PO (11:11)
[2020-04-08] MEDS: ascorbic acid 500 mg Tablet 1000 MG PO ×2 (11:11→17:35)
--- NOTE | 2020-04-08 11:19 | P.PN_ITS ---
Subjective Subjective: Interval history: No acute events overnight. Since today morning patient's sedation has been withheld and is only on Precedex for sedation vacation. She is tolerating blood pressure support with PEEP of 10 and FiO2 of 60% well. Has remained hemodynamically stable with mean arterial pressure of mostly over 65. T-max in last 24 hours 100.1 Fahrenheit. Continues to have frequent bowel movements so has a rectal tube. Medications: Reviewed: Yes Vitals/I&O/Wt Last Vital Signs Temp 100.1 F H 04/08/20 10:00 Pulse 95 04/08/20 11:10 Resp 19 H 04/08/20 11:12 BP 94/50 04/08/20 09:00 Pulse Ox 92 04/08/20 11:10 04/07/20 04/08/20 04/08/20 22:59 06:59 14:59 Intake Total 556.225 / 2129.000 400.67 / 2529.670 154 / 154 Output Total 1175 / 1175 2000 / 3175 Balance -618.775 / 954.000 -1599.33 / -645.330 154 / 154 Weight last 48 hrs Weight 89.675 kg Weight 91.58 kg Physical Exam Narrative: EXAM NARRATIVE: General: Sedated, intubated, but arousable to physical stimulus HEENT: PERRLA, pupils bilaterally equal and reactive Chest: Coarse crackles bilaterally, decreased air entry bilateral lower zones, diffuse rhonchi all over the lung brand CVS: S1-S2 regular, no murmurs, no tachycardia, no gallops, no rubs Abdomen: Soft, nontender, no organomegaly, bowel sounds present Neuro: Sedated, Extremities: Bilateral puffy 1+, pulses bilaterally palpable Urinary Catheter Management^: Preciado: Cath Placed During This Visit: yes Reason for Continuing Indwelling Catheter: Accurate Measurement of Urinary Output in Critically Ill Patients Urinary Catheter Date of Insertion: 03/29/20 Urinary Catheter Time of Insertion: 12:35 Data : 04/08/20 04:00 04/08/20 04:00 A&P Assessment and plan (1) Sepsis due to severe acute respiratory syndrome coronavirus 2 (SARS-CoV-2): Status: Acute (2) ARDS (adult respiratory distress syndrome): Status: Acute (3) Secondary bacterial pneumonia: Status: Acute (4) COVID-19: Status: Acute (5) Hypertension: Status: Acute Additional A&P Information ARDS and sepsis secondary to COVID-19 pneumonia with superadded bacterial infection: Septic shock: Resolved. Levophed weaned off. Mean arterial pressure more than 70s regularly. Continue with sedation at current dose. Daily sedation vacation. Very short of propofol early tomorrow morning. Daily ABGs. Procalcitonin, TSH, proBNP, inflammatory markers appreciated. Urine Legionella and bacterial antigen negative. Sputum culture positive for stenotrophomonas. No more remdesivir and dexamethasone as patient has already finished a course of antiviral and more than 13 days of steroids. Appreciate pulmonology recommendations. Continue with Zosyn to cover for potential Pseudomonas. Patient's Bactrim was transitioned over to oral yesterday though patient is spiking fevers again so we will transition back to IV for now. We will do overall 5 to 7-day course. Day 4today. Start patient on DuoNebs every 4 hours and budesonide twice daily. Continue with Eliquis 5 mg twice daily. Continue with tube feeds at current dose. Patient tolerating well though having mild diarrhea. Stop bowel regimen for now. We will do stool studies to rule out any source of infection as patient is spiking fever though unlikely. Patient is net 1.5 L negative in last 24 hours and appears euvolemic. Hold today's Lasix dose. Will dose Lasix daily as per the fluid status. Echocardiogram done earlier in the admission shows an EF of 60% with normal LV cavity size with mild aortic regurgitation and normal PASP. DVT PPX : On Eliquis 5 mg q12 h daily Lines :RT I.J ( 04/01 ), O.G Tube ( 04/01 ) Nutrition: Start patient on tube feeds with Ensure starting 20 cc/h going up to 10 cc every 4 hour with free water flushes 100 cc every 6 hours. Full code. Severely guarded prognosis. Patient's son updated regarding her health and intubated status. All the questions were answered. Attestations Medical Necessity Statement*: Patient requires further hospitalization for management of ARDS/ventilator dependent in view of COVID-19 pneumonia and superadded stenotrophomonas pneumonia. Time Spent in Patient Care: Greater than 35 minutes (>than 50% of time spent in counselling and/or direct pt care on unit) . 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
[2020-04-08] MEDS: dexmedetomidine 400 MCG in sodium chloride 0.9% (100 ml) 100 ML 14 MCG IV ×2 (11:52→21:30)
[2020-04-08 17:06] LABS: Glucose Point of Care 106 mg/dL (70-110)
[2020-04-08 20:23] LABS: Procalcitonin 0.15 ng/mL (0-0.5)
[2020-04-08] MEDS: sulfamethoxazole-trimeth inj 400 MG in dextrose 5 % 500 ML 500 MG IV (21:30)
[2020-04-09] VITALS (37 sets, daily range): BP systolic 71–123; BP diastolic 51–70; PULSE 72–96; RESP 16–27; TEMP 36.1–37.4; O2SAT 87–94
[2020-04-09] MEDS: ipratropium-albuterol 3 mL Neb INHALATION ×7 (00:10→23:17)
[2020-04-09] MEDS: piperacillin-tazobactam 3.375 GM in sodium chloride 0.9% (plus) 50 ML IV ×3 (00:45→14:44)
[2020-04-09 00:47] LABS: Glucose Point of Care 127 mg/dL (70-110)
--- NOTE | 2020-04-09 00:56 | XRR_ITS ---
PROCEDURE INFORMATION: Exam: XR Chest, 1 View Exam date and time: 04/09/2020 12:58 AM Age: 74 years old Clinical indication: Device placement; Ng tube; Dyspnea; Patient HX: Declining sats; Additional info: Suspected mis-placement of og tube. TECHNIQUE: Imaging protocol: XR of the chest Views: 1 view. COMPARISON: CR XR chest 1V portable [id number] 04/08/2020 4:43 AM FINDINGS: Tubes, catheters and devices: Endotracheal tube, tip 2.8 cm above loni. Nasogastric tube, tip overlying the left upper quadrant at the expected region of the proximal stomach. Right internal jugular central venous line, tip overlying the right atrium. Lungs: Extensive mixed interstitial/alveolar opacities throughout both lungs, increased from prior study. These may represent any combination of severe pulmonary edema/ARDS and pneumonia. Pleural space: No visible pneumothorax or pleural effusion. Heart/Mediastinum: Heart size within normal limits. Bones/joints: No emergent findings identified. XR/XR chest 1V portable [id number] IMPRESSION: 1. Nasogastric tube, tip overlying the left upper quadrant at the expected region of the proximal stomach. 2. Extensive mixed interstitial/alveolar opacities throughout both lungs, increased from prior study. These may represent any combination of severe pulmonary edema/ARDS and pneumonia.
--- NOTE | 2020-04-09 00:58 | PC.NURSE ---
ASSUMING CARE Patient resting in bed on mechanical ventilation. VC-AC mode, TV 500, 55% FiO2, 16 Rate, 10 PEEP, 8.0 tube and 23 centimeters at the lip. Patient is arousable and able to follow commands easily, and she communicates by nodding her head. Patient is on precedex at 0.6 mcg/kg/hour and fentanyl at 50 mcg/hour. Ensure plus tube feedings running at 50 mL/hour. Feedings stopped and OG tube aspirated and auscultated. Air bolus heard upon auscultation.
[2020-04-09] MEDS: propofol 1,000 MG/100 ML INJ 2.7 MG IV (02:35)
--- NOTE | 2020-04-09 03:20 | PC.NURSE ---
ASPIRATION Patient began to cough and gag with oxygen desaturation into the mid 80s. Patient then had new finding of dark kolb colored saliva suctioned out of mouth. Concern for aspiration of tube feedings through OG tube. Feedings stopped and residual checked, no residual. Dr. Isaac notified of concern via telephone and okayed a chest xray to confirm OG tube was not misplaced.
--- NOTE | 2020-04-09 03:32 | PC.NURSE ---
DESATURATION Ventilator alarming around 0210. Upon assessment, patients oxygen decreased to 80% and patient was tachypnic and breathing in the mid 30s. Patient on 0.6 mcg/kg/hour of precedex which is what patient started shift off with and required no titrations per Savage scale, and 75 mcg/fentanyl which was increased around 2200 due to patient being undersedated and restless per Savage scale. Patients propofol resumed to 5 mcg/kg/min and titrated up every 5-10 minutes until patient adequately sedated at 30 mcg/kg/min. Precedex increased to 0.7 mcg/kg/hour and fentanyl increased to 100 mcg/hour. Dr. Isaac called to notify of desaturation and notified of patient being hypotensive and need to initiate levophed so patient could sustain need for propofol titrations for adequate sedation. Patient is currently resting in bed and is still arousable to loud verbal stimuli and physical touch on listed titrations of sedation medications. Oxygen saturation is currently 89% with a MAP of 79 on 2 mcg/min of levophed. Lung sounds auscultated bilaterally, coarse ronchi noted bilaterally. Radiology in room to do chest xray from suspected OG tube misplacement. Dr. Isaac states that chest xray is unremarkable and no different than yesterday, OG tube placement is appropriate, but to put tube feeds on hold for now until further notice. One time lasix order put in due to dose held on day shift yesterday.
[2020-04-09] MEDS: FUROsemide 10 mg/mL SDV 4mL 40 MG IVP (03:48)
[2020-04-09] MEDS: sulfamethoxazole-trimeth inj 400 MG in dextrose 5 % 500 ML 500 MG IV ×3 (04:05→19:50)
[2020-04-09 05:10] LABS: Basophils % 0.1 %; Eosinophils # 0.2 10^3/uL (0.0-0.8); Eosinophils % 1.5 %; Hematocrit 27.9 % (37.0-47.0); Hemoglobin 9.4 g/dL (11.5-15.3); Lymphocytes # 1.2 10^3/uL (0.8-4.8); Lymphocytes % 10.1 %; Mean Corpuscular HGB Conc 33.7 g/dL (30.0-36.0); Mean Corpuscular Hemoglobin 34.4 pg (28.0-34.0); Mean Corpuscular Volume 102.2 fL (81-99); Monocytes # 0.3 10^3/uL (0.2-0.9); Monocytes % 2.7 %; Neutrophils # 9.87 10^3/uL (1.8-7.7); Neutrophils % 84.8 %; Nucleated Red Blood Cells % 0.2 %; Platelet Count 183 10^3/cmm (130-400); Red Blood Count 2.73 10^6/uL (4.1-5.3); Red Cell Distribution Width 14.1 % (12.1-15.1); White Blood Count 11.6 10^3/uL (4.0-10.0)
[2020-04-09 05:29] LABS: Fibrinogen 541 mg/dL (174-498)
[2020-04-09 05:32] LABS: D Dimer 3.49 ug/mIFEU (0-0.59)
[2020-04-09 05:40] LABS: Glucose Point of Care 194 mg/dL (70-110)
[2020-04-09 05:44] LABS: Alanine Aminotransferase 18 U/L (0-33); Alkaline Phosphatase 84 IU/L (35-105); Anion Gap 12.2 (5-19); Aspartate Amino Transferase 25 U/L (0-32); Blood Urea Nitrogen 12 mg/dL (8-23); Calcium 8.4 mg/dL (8.5-10.5); Carbon Dioxide 27 mmol/L (22-29); Chloride 102 mmol/L (98-107); Globulin 2.6 g/dL (1.3-4.6); Glucose 101 mg/dL (65-115); Osmolality Calculated 284 mOsm/kg (285-295); Potassium 4.2 mmol/L (3.5-5.1); Sodium 137 mmol/L (136-145); Total Bilirubin 0.4 mg/dL (0.15-1.2); Total Protein 5.6 g/dL (6.6-8.7)
[2020-04-09 05:45] LABS: C Reactive Protein 229.3 mg/L (0.0-4.9); Creatine Phosphokinase 76 U/L (26-192); Lactate Dehydrogenase 372 U/L (135-214); NT Pro B Type Natriuretic Pept 2741 pg/mL (0-125)
[2020-04-09] MEDS: dexmedetomidine 400 MCG in sodium chloride 0.9% (100 ml) 100 ML 16.3 MCG IV (05:48)
[2020-04-09] MEDS: famotidine 20 mg/2 mL INJ IVP ×2 (05:49→17:43)
[2020-04-09 06:00] LABS: Ferritin 1783 ng/mL (15-150)
[2020-04-09] MEDS: budesonide 0.5 mg/2 mL Neb INHALATION ×2 (07:42→19:32)
[2020-04-09] MEDS: ascorbic acid 500 mg Tablet 1000 MG PO ×2 (09:37→17:43)
[2020-04-09] MEDS: zinc gluconate 50 mg Tablet PO (09:37)
[2020-04-09] MEDS: apixaban 5 mg Tablet PO ×2 (09:37→17:42)
[2020-04-09 11:26] LABS: Glucose Point of Care 102 mg/dL (70-110)
[2020-04-09] MEDS: propofol 1,000 MG/100 ML INJ 5.4 MG IV (12:34)
--- NOTE | 2020-04-09 12:37 | PC.NURSE ---
Sedation vacation and anticipated CPAP trial. Nurse has started reducing the patient's sedation.
[2020-04-09 12:54] LABS: Glucose Point of Care 207 mg/dL (70-110)
--- NOTE | 2020-04-09 14:31 | PM.PN ---
Subjective Subjective: Interval history: Overall is doing okay. No significant events or changes. I spoke with nursing staff and respiratory therapist. Yesterday she had about 6 hours of CPAP trial. She is still sedated however. No acute distress. Medications: Reviewed: Yes Medication Review Details: Generic Name Dose Route Start Last Admin Trade Name Zaina PRN Reason Stop Dose Admin Albuterol Sulfate 2 puff 03/23/20 17:05 04/01/20 08:43 Albuterol 8 Gm M di INHALATION 2 puff Q4H.RESPIRATORY P RN Administration SHORTNESS OF PAUL TH Albuterol/Ipratrop ium 3 ml 04/05/20 16:00 04/09/20 11:15 Ipratropium-Albu terol 3 Ml Neb INHALATION 3 ml Q4H.RESPIRATORY S CH Administration Apixaban 5 mg 04/02/20 09:00 04/09/20 09:37 Apixaban 5 Mg Ta blet PO 5 mg BID NGOC Administration Ascorbic Acid 1,000 mg 03/24/20 18:00 04/09/20 09:37 Ascorbic Acid 50 0 Mg Tablet PO 1,000 mg BID NGOC Administration Budesonide 0.5 mg 04/05/20 20:03 04/09/20 07:42 Budesonide 0.5 M g/2 Ml Neb INHALATION 0.5 mg BID.RESPIRATORY S CH Administration Famotidine 20 mg 04/01/20 18:00 04/09/20 05:49 Famotidine 20 Mg /2 Ml Inj IVP 20 mg Q12H NGOC Administration Furosemide 40 mg 04/07/20 16:15 04/07/20 19:08 Furosemide 10 Mg /Ml Sdv 4ml IVP Not Given Q24H NGOC Dexmedetomidine HC l 400 mcg/ 104 mls @ 0 mls/h r 04/01/20 12:00 04/09/20 12:31 Sodium Chloride IV 0.3 mcg/kg/hr .Q0M NGOC 7 mls/hr Titration Protocol Per Protocol Propofol 1,000 mg in 100 m ls @ 0 mls/hr 04/01/20 13:00 04/09/20 13:04 Diprivan IV 0 mcg/kg/min .Q0M NGOC 0 mls/hr Titration Protocol Per Protocol Norepinephrine Bit artrate 4 mg 254 mls @ 0 mls/h r 04/02/20 12:00 04/09/20 05:21 / Dextrose IV 2 mcg/min .Q0M NGOC 7.6 mls/hr Titration Protocol Per Protocol Fentanyl 1,000 mcg / Sodium 100 mls @ 0 mls/h r 04/05/20 13:15 04/09/20 12:31 Chloride IV 3 mcg/hr .Q0M NGOC 0.3 mls/hr Titration Protocol Per Protocol Piperacillin Sod/T azobactam 50 mls @ 12.5 mls /hr 04/05/20 15:00 04/09/20 11:07 Sod 3.375 gm/ So dium Chloride IV Infused Q8H NGOC Infusion Trimethoprim/Sulfa methoxazole 525 mls @ 500 mls /hr 04/08/20 19:00 04/09/20 13:04 400 mg/ Dextrose IV Infused Q8H NGOC Infusion Protocol Insulin Aspart 0 unit 04/05/20 18:00 04/09/20 11:32 Insulin Aspart 1 00 Unit/1 Ml SUBCUT Not Given Q6H NGOC Protocol Trimethoprim/Sulfa methoxazole 2.5 tab 04/07/20 18:00 04/08/20 11:12 Sulfamethoxazole -Trimeth Ds 160-80 0 Mg Tablet PO 2.5 tab Q8H NGOC Administration Zinc Gluconate 50 mg 03/24/20 12:10 04/09/20 09:37 Zinc Gluconate 5 0 Mg Tablet PO 50 mg DAILY NGOC Administration Vitals/I&O/Wt Last Vital Signs Temp 97.6 F 04/09/20 12:00 Pulse 88 04/09/20 13:26 Resp 21 H 04/09/20 13:26 BP 100/61 04/09/20 12:00 Pulse Ox 91 04/09/20 13:26 04/08/20 04/09/20 04/09/20 22:59 06:59 14:59 Intake Total 994.167 / 6545.637 1655.364 / 2388.819 839.767 / 839.767 Output Total 1600 / 1600 2910 / 4510 650 / 650 Balance -605.833 / -397.545 -1723.636 / -2121.181 189.767 / 189.767 Weight last 48 hrs Weight 90.22 kg Weight 89.675 kg Physical Exam Narrative: EXAM NARRATIVE: Sedated. No acute distress. Skin is warm and dry. Moist mucous membranes. Neck supple. No JVD Lungs decreased breath sounds bibasilarly and mild scattered bibasilar crackles. No respiratory distress Heart S1, S2, regular Abdomen soft, nontender, bowel sounds are present Extremities trace edema. No cyanosis no calf tenderness bilaterally Urinary Catheter Management^: Preciado: Cath Placed During This Visit: yes Reason for Continuing Indwelling Catheter: Accurate Measurement of Urinary Output in Critically Ill Patients Urinary Catheter Date of Insertion: 03/29/20 Urinary Catheter Time of Insertion: 12:35 Data : 04/09/20 04:21 04/09/20 04:21 Micro: Microbiology 04/08/20 15:30 Stool Lactoferrin - Final Stool C.difficile Toxin B Gene (PCR) - Final Occult Blood (FIT) - Final A&P Assessment and plan (1) Sepsis due to severe acute respiratory syndrome coronavirus 2 (SARS-CoV-2): Status: Acute (2) ARDS (adult respiratory distress syndrome): Acute hypoxic respiratory failure secondary to ARDS 2/2 COVID-19 pneumonia possible bacterial pneumonia. -Blood cultures:NTD -Sputum cultures:GNR -urine Culture: -Urine Bacterial Antigen :Negative -xRay chest : 04/03: Diffuse bilateral pulmonary infiltrates progressed since April 01, 2020. Progressed opacification with Volume loss in the left lower lobe. Associated Air bronchograms. AB/12 : Ph: 7.47, PCO2: 39, PO2: 74, FIO2: 50 % P/F: 74/ 0.5 Cultures: Sputum :GNR , Blood : NTD , -On 10 days extended Remdesivir course. -Decadron 6 mg I.V Day 12 -Ascorbic acid -Zinc -S/P: 3 bags convalescent plasma -Continue vancomycin and Primaxin, and azithromycin -Advair, albuterol - pulmonary toilet -Continue Mechanical ventilation -Eliquis increased to 5 mg q12 h daily from 2.5 mg q12h daily -on Versed, fentanyl, and Propofol -On Nimbus Per protocol -Day 3/3 of proning -Lasix as needed Status: Acute (3) Secondary bacterial pneumonia: Status: Acute (4) COVID-19: -Acute hypoxic respiratory failure secondary to ARDS 2/2 COVID-19 pneumonia, viral pneumonitis, secondary bacterial pneumonia -Blood cultures:NTD -Sputum cultures:GNR -urine Culture: -Urine Bacterial Antigen :Negative -2 D Echo: Normal LVEF : 60 % NO RWMA -Remdesivir Extended 10 days course -Decadron 6 mg I.V Day 12 -Ascorbic acid -Zinc -S/P 3 bags convalescent plasma -Continue vancomycin and Primaxin, added azithromycin -Advair, albuterol -Has macrocytosis, B12 and folate within normal, peripheral smear no blasts -Pulmonary toilet -Continue Mechanical Ventilation -Eliquis 5 mg q12 h daily -Lasix as needed Status: Acute (5) Hypertension: Status: Acute Additional A&P Information ARDS and sepsis secondary to COVID-19 pneumonia with superadded bacterial infection: Septic shock: Resolved. Levophed weaned off. Mean arterial pressure more than 70s regularly. Continue with sedation at current dose. Daily sedation vacation. Very short of propofol early tomorrow morning. Daily ABGs. Procalcitonin, TSH, proBNP, inflammatory markers appreciated. Urine Legionella and bacterial antigen negative. Sputum culture positive for stenotrophomonas. No more remdesivir and dexamethasone as patient has already finished a course of antiviral and more than 13 days of steroids. Appreciate pulmonology recommendations. Continue with Zosyn to cover for potential Pseudomonas. Patient's Bactrim was transitioned over to oral yesterday though patient is spiking fevers again so we will transition back to IV for now. We will do overall 5 to 7-day course. Day 4today. Start patient on DuoNebs every 4 hours and budesonide twice daily. Continue with Eliquis 5 mg twice daily. Continue with tube feeds at current dose. Patient tolerating well though having mild diarrhea. Stop bowel regimen for now. We will do stool studies to rule out any source of infection as patient is spiking fever though unlikely. Patient is net 1.5 L negative in last 24 hours and appears euvolemic. Hold today's Lasix dose. Will dose Lasix daily as per the fluid status. Echocardiogram done earlier in the admission shows an EF of 60% with normal LV cavity size with mild aortic regurgitation and normal PASP. DVT PPX : On Eliquis 5 mg q12 h daily Lines :RT I.J ( 04/01 ), O.G Tube ( 04/01 ) Nutrition: Start patient on tube feeds with Ensure starting 20 cc/h going up to 10 cc every 4 hour with free water flushes 100 cc every 6 hours. Full code. Severely guarded prognosis. Patient's son updated regarding her health and intubated status. All the questions were answered. [place] Acute hypoxic respiratory failure secondary to COVID-19 pneumonia and ARDS. Completed dexamethasone and convalescent plasma. Currently stable. We will continue CPAP trial today. We will decrease sedation and try to extubate her tomorrow morning. After extubation we will continue monitoring her for another day and try to discharge her to LTAC. However if she does not pass CPAP trial we could discharge her to LTAC intubated. Discussed with the case management. I am going to also call to her son shortly. We will stop Zosyn and continue Bactrim for total of 7 days. Today is day 5 out of 7. Continue respiratory treatments. Continue furosemide. DVT prophylaxis. She is on Eliquis currently. Prophylaxis. Famotidine. The plan of care was discussed with the multidisciplinary team. Attestations Medical Necessity Statement*: The patient is still intubated. Requires ICU stay. 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
--- NOTE | 2020-04-09 16:12 | PC.NURSE ---
Received orders for restarting the tube feedings. OG tube placement verified earlier this morning via Xray. Nurse also aspirated and auscultated to verify placement before starting feedings. 20 ml of gastric content residual before feedings started.
[2020-04-09] MEDS: propofol 1,000 MG/100 ML INJ 10.8 MG IV (17:15)
[2020-04-09] MEDS: dexmedetomidine 400 MCG in sodium chloride 0.9% (100 ml) 100 ML 7 MCG IV (17:44)
[2020-04-09 17:56] LABS: Glucose Point of Care 99 mg/dL (70-110)
--- NOTE | 2020-04-09 19:30 | PC.NURSE ---
Mar shows Fentanyl running at 3 mcg/hr when upon shift change this nurse noticed it running at 80 mcg/hr, mar changed to reflect current dose
--- NOTE | 2020-04-09 20:17 | PC.NURSE ---
assessment Opens eyes to verbal, does not pharmacy technologist hands or follow commands, tolerating vent and OG feeding at this time, supine 30 degrees, call light within reach
[2020-04-09] MEDS: propofol 1,000 MG/100 ML INJ 21.6 MG IV (21:50)
[2020-04-09 23:41] LABS: Glucose Point of Care 80 mg/dL (70-110)
[2020-04-10] VITALS (64 sets, daily range): BP systolic 78–119; BP diastolic 46–72; PULSE 76–100; RESP 16–42; TEMP 36.6–37.5; O2SAT 87–98
[2020-04-10] MEDS: propofol 1,000 MG/100 ML INJ 16.2 MG IV (01:27)
[2020-04-10] MEDS: ipratropium-albuterol 3 mL Neb INHALATION ×5 (03:19→19:08)
[2020-04-10] MEDS: sulfamethoxazole-trimeth inj 400 MG in dextrose 5 % 500 ML 500 MG IV ×3 (03:36→20:05)
[2020-04-10 04:50] LABS: Basophils % 0.2 %; Eosinophils # 0.2 10^3/uL (0.0-0.8); Eosinophils % 2.3 %; Hematocrit 26.5 % (37.0-47.0); Hemoglobin 8.7 g/dL (11.5-15.3); Lymphocytes # 1.1 10^3/uL (0.8-4.8); Lymphocytes % 10.7 %; Mean Corpuscular HGB Conc 32.8 g/dL (30.0-36.0); Mean Corpuscular Hemoglobin 34.1 pg (28.0-34.0); Mean Corpuscular Volume 103.9 fL (81-99); Mean Platelet Volume 10.1 fL (7.4-10.4); Monocytes # 0.3 10^3/uL (0.2-0.9); Monocytes % 2.8 %; Neutrophils # 8.47 10^3/uL (1.8-7.7); Neutrophils % 83.4 %; Nucleated Red Blood Cells % 0 %; Platelet Count 177 10^3/cmm (130-400); Red Blood Count 2.55 10^6/uL (4.1-5.3); Red Cell Distribution Width 13.9 % (12.1-15.1); White Blood Count 10.2 10^3/uL (4.0-10.0)
[2020-04-10] MEDS: famotidine 20 mg/2 mL INJ IVP ×2 (05:02→17:10)
[2020-04-10 05:10] LABS: Glucose Point of Care 150 mg/dL (70-110)
[2020-04-10 05:19] LABS: Fibrinogen 532 mg/dL (174-498)
[2020-04-10] MEDS: dexmedetomidine 400 MCG in sodium chloride 0.9% (100 ml) 100 ML 14 MCG IV (05:21)
[2020-04-10 05:32] LABS: Alanine Aminotransferase 25 U/L (0-33); Albumin Level 2.4 g/dL (3.5-5.2); Alkaline Phosphatase 140 IU/L (35-105); Anion Gap 14.1 (5-19); Aspartate Amino Transferase 33 U/L (0-32); Blood Urea Nitrogen 14 mg/dL (8-23); Calcium 8.3 mg/dL (8.5-10.5); Carbon Dioxide 27 mmol/L (22-29); Chloride 95 mmol/L (98-107); Creatinine Clr Calc Pharmacy 68.1304; Globulin 2.8 g/dL (1.3-4.6); Glucose 179 mg/dL (65-115); Magnesium 2.1 mg/dL (1.7-2.3); Osmolality Calculated 279 mOsm/kg (285-295); Potassium 4.1 mmol/L (3.5-5.1); Sodium 132 mmol/L (136-145); Total Bilirubin 0.2 mg/dL (0.15-1.2); Total Protein 5.2 g/dL (6.6-8.7)
[2020-04-10 05:55] LABS: C Reactive Protein 267.6 mg/L (0.0-4.9); Creatine Phosphokinase 97 U/L (26-192); Lactate Dehydrogenase 404 U/L (135-214); NT Pro B Type Natriuretic Pept 1274 pg/mL (0-125)
--- NOTE | 2020-04-10 06:00 | XRR_ITS ---
PROCEDURE INFORMATION: Exam: XR Chest, 1 View Exam date and time: 04/10/2020 7:15 AM Age: 74 years old Clinical indication: Condition or disease; Other: Covid TECHNIQUE: Imaging protocol: XR of the chest Views: 1 view. COMPARISON: CR (CHEST, ) 04/09/2020 2:12 AM FINDINGS: Tubes, catheters and devices: Endotracheal tube, tip approximately 5 cm above loni. Nasogastric tube, tip overlying the left upper quadrant at the expected region of the proximal stomach. Right internal jugular central venous line, tip overlying the right atrium. Lungs: Lower lung volumes. Stable bilateral pulmonary infiltrates. Pleural space: No significant visible pleural effusion. No pneumothorax. Heart/Mediastinum: Cardiac silhouette appears exaggerated by lower lung volumes. Bones/joints: No acute finding. XR/XR chest 1V portable [id number] IMPRESSION: Lower lung volumes with essentially stable pulmonary infiltrates.
[2020-04-10 06:14] LABS: Ferritin 1988 ng/mL (15-150)
[2020-04-10] MEDS: propofol 1,000 MG/100 ML INJ 21.6 MG IV ×4 (06:37→19:43)
[2020-04-10] MEDS: budesonide 0.5 mg/2 mL Neb INHALATION ×2 (08:30→19:08)
--- NOTE | 2020-04-10 09:14 | XRR_ITS ---
PROCEDURE INFORMATION: Exam: XR Chest, 1 View Exam date and time: 04/10/2020 9:31 AM Age: 74 years old Clinical indication: Shortness of breath; Patient HX: Covid; Additional info: SOB TECHNIQUE: Imaging protocol: XR of the chest Views: 1 view. COMPARISON: CR XR chest 1V portable [id number] 04/10/2020 7:21 AM FINDINGS: Tubes, catheters and devices: Enteric tube near level of gastroesophageal junction. Endotracheal to 4.3 cm above loni. Right internal jugular line tip at level of atrium. Lungs: Patchy bilateral pulmonary opacities are not significant. Pleural space: No significant visible pleural effusion. No pneumothorax. Heart/Mediastinum: No acute finding. Bones/joints: No acute finding. XR/XR chest 1V portable [id number] IMPRESSION: Stable pulmonary opacities.
[2020-04-10] MEDS: apixaban 5 mg Tablet PO (10:00)
[2020-04-10] MEDS: ascorbic acid 500 mg Tablet 1000 MG PO ×2 (10:00→17:10)
[2020-04-10] MEDS: zinc gluconate 50 mg Tablet PO (10:01)
[2020-04-10 11:14] LABS: ABG PH Result 7.41 (7.35-7.45); Alveolar-Arterial Oxygen Gradi 61.9 mmHg (5-10); Arterial Blood Gas Hematocrit 31.6 % (37-47); Base Excess ABG 4.7 mmol/L (-2.0-2.0); Blood Gas Operator Identificat AMH; Blood Gas Sample Site Brachial, left; Blood Gas Sample Type Arterial; Blood Gas Tidal Volume 0.45; Carboxyhemoglobin 1.1 %THgb (0.4-20.1); HCO3 ABG 30.1 mmol/L (22-26); HGB O2 Sat 93.2 % (95-100); Ionized Calcium Level - ABG 1.2 mmol/L (1.1-1.4); Methemoglobin 1.6 % (0.4-1.5); Oxygen Device VENT; Oxygen Saturation ABG 95.8; PO2 ABG 78.7 mmHg (80.0-100.0); Potassium Level - ABG 4.3 mmol/L (3.5-5.0); Total Hemoglobin 10.3 g/dL (12-16)
--- NOTE | 2020-04-10 12:04 | P.PN_ITS ---
Subjective Subjective: Interval history: The patient developed respiratory distress this morning. She was transferred to a different unit. However her symptoms started before the transfer. She has tachypnea, increased oxygen demand, increased peak pressure. Medications: Reviewed: Yes Medication Review Details: Generic Name Dose Route Start Last Admin Trade Name Zaina PRN Reason Stop Dose Admin Albuterol Sulfate 2 puff 03/23/20 17:05 04/01/20 08:43 Albuterol 8 Gm M di INHALATION 2 puff Q4H.RESPIRATORY P RN Administration SHORTNESS OF PAUL TH Albuterol/Ipratrop ium 3 ml 04/05/20 16:00 04/10/20 11:23 Ipratropium-Albu terol 3 Ml Neb INHALATION 3 ml Q4H.RESPIRATORY S CH Administration Apixaban 5 mg 04/02/20 09:00 04/10/20 10:00 Apixaban 5 Mg Ta blet PO 5 mg BID NGOC Administration Ascorbic Acid 1,000 mg 03/24/20 18:00 04/10/20 10:00 Ascorbic Acid 50 0 Mg Tablet PO 1,000 mg BID NGOC Administration Budesonide 0.5 mg 04/05/20 20:03 04/10/20 08:30 Budesonide 0.5 M g/2 Ml Neb INHALATION 0.5 mg BID.RESPIRATORY S CH Administration Famotidine 20 mg 04/01/20 18:00 04/10/20 05:02 Famotidine 20 Mg /2 Ml Inj IVP 20 mg Q12H NGOC Administration Furosemide 40 mg 04/07/20 16:15 04/07/20 19:08 Furosemide 10 Mg /Ml Sdv 4ml IVP Not Given Q24H NGOC Dexmedetomidine HC l 400 mcg/ 104 mls @ 0 mls/h r 04/01/20 12:00 04/10/20 05:21 Sodium Chloride IV 0.6 mcg/kg/hr .Q0M NGOC 14 mls/hr Administration Protocol Per Protocol Propofol 1,000 mg in 100 m ls @ 0 mls/hr 04/01/20 13:00 04/10/20 10:50 Diprivan IV 40 mcg/kg/min .Q0M NGOC 21.6 mls/hr Administration Protocol Per Protocol Norepinephrine Bit artrate 4 mg 254 mls @ 0 mls/h r 04/02/20 12:00 04/10/20 05:18 / Dextrose IV 0.4 mcg/min .Q0M NGOC 1.5 mls/hr Administration Protocol Per Protocol Fentanyl 1,000 mcg / Sodium 100 mls @ 0 mls/h r 04/05/20 13:15 04/10/20 05:21 Chloride IV 80 mcg/hr .Q0M NGOC 8 mls/hr Administration Protocol Per Protocol Trimethoprim/Sulfa methoxazole 525 mls @ 500 mls /hr 04/08/20 19:00 04/10/20 11:10 400 mg/ Dextrose IV 500 mls/hr Q8H NGOC Administration Protocol Insulin Aspart 0 unit 04/05/20 18:00 04/10/20 05:12 Insulin Aspart 1 00 Unit/1 Ml SUBCUT 1 unit Q6H NGOC Administration Protocol Trimethoprim/Sulfa methoxazole 2.5 tab 04/07/20 18:00 04/08/20 11:12 Sulfamethoxazole -Trimeth Ds 160-80 0 Mg Tablet PO 2.5 tab Q8H NGOC Administration Zinc Gluconate 50 mg 03/24/20 12:10 04/10/20 10:01 Zinc Gluconate 5 0 Mg Tablet PO 50 mg DAILY NGOC Administration Vitals/I&O/Wt Last Vital Signs Temp 99.5 F 04/10/20 09:00 Pulse 77 04/10/20 11:24 Resp 16 04/10/20 11:24 BP 110/59 04/10/20 10:00 Pulse Ox 94 04/10/20 11:24 04/09/20 04/10/20 04/10/20 22:59 06:59 14:59 Intake Total 652.442 / 2145.527 1026.191 / 3171.718 91.08 / 91.08 Output Total 1400 / 2050 850 / 850 Balance 652.442 / 1495.527 -373.809 / 1121.718 -758.92 / -758.92 Weight last 48 hrs Weight 90.22 kg Physical Exam Narrative: EXAM NARRATIVE: Sedated. Mild to moderate distress secondary to labored breathing. Skin is warm and dry. Moist mucous membranes. PERRL Neck supple. No JVD Lungs decreased breath sounds bibasilarly, coarse breath sounds and mild scattered bibasilar crackles. The rate around forty Heart S1, S2, regular Abdomen soft, nontender, bowel sounds are present Extremities trace edema. No cyanosis no calf tenderness bilaterally Urinary Catheter Management^: Preciado: Cath Placed During This Visit: yes Reason for Continuing Indwelling Catheter: Accurate Measurement of Urinary Output in Critically Ill Patients Urinary Catheter Date of Insertion: 03/29/20 Urinary Catheter Time of Insertion: 12:35 Data : 04/10/20 04:25 04/10/20 04:25 Micro: Microbiology 04/08/20 15:30 Stool Lactoferrin - Final Stool C.difficile Toxin B Gene (PCR) - Final Occult Blood (FIT) - Final A&P Assessment and plan (1) Sepsis due to severe acute respiratory syndrome coronavirus 2 (SARS-CoV-2): Status: Acute (2) ARDS (adult respiratory distress syndrome): Acute hypoxic respiratory failure secondary to ARDS 2/2 COVID-19 pneumonia possible bacterial pneumonia. -Blood cultures:NTD -Sputum cultures:GNR -urine Culture: -Urine Bacterial Antigen :Negative -xRay chest : 04/03: Diffuse bilateral pulmonary infiltrates progressed since April 01, 2020. Progressed opacification with Volume loss in the left lower lobe. Associated Air bronchograms. AB/12 : Ph: 7.47, PCO2: 39, PO2: 74, FIO2: 50 % P/F: 74/ 0.5 Cultures: Sputum :GNR , Blood : NTD , -On 10 days extended Remdesivir course. -Decadron 6 mg I.V Day 12 -Ascorbic acid -Zinc -S/P: 3 bags convalescent plasma -Continue vancomycin and Primaxin, and azithromycin -Advair, albuterol - pulmonary toilet -Continue Mechanical ventilation -Eliquis increased to 5 mg q12 h daily from 2.5 mg q12h daily -on Versed, fentanyl, and Propofol -On Nimbus Per protocol -Day 3/3 of proning -Lasix as needed Status: Acute (3) Secondary bacterial pneumonia: Status: Acute (4) COVID-19: -Acute hypoxic respiratory failure secondary to ARDS 2/2 COVID-19 pneumonia, viral pneumonitis, secondary bacterial pneumonia -Blood cultures:NTD -Sputum cultures:GNR -urine Culture: -Urine Bacterial Antigen :Negative -2 D Echo: Normal LVEF : 60 % NO RWMA -Remdesivir Extended 10 days course -Decadron 6 mg I.V Day 12 -Ascorbic acid -Zinc -S/P 3 bags convalescent plasma -Continue vancomycin and Primaxin, added azithromycin -Advair, albuterol -Has macrocytosis, B12 and folate within normal, peripheral smear no blasts -Pulmonary toilet -Continue Mechanical Ventilation -Eliquis 5 mg q12 h daily -Lasix as needed Status: Acute (5) Hypertension: Status: Acute Additional A&P Information ARDS and sepsis secondary to COVID-19 pneumonia with superadded bacterial infection: Septic shock: Resolved. Levophed weaned off. Mean arterial pressure more than 70s regularly. Continue with sedation at current dose. Daily sedation vacation. Very short of propofol early tomorrow morning. Daily ABGs. Procalcitonin, TSH, proBNP, inflammatory markers appreciated. Urine Legionella and bacterial antigen negative. Sputum culture positive for stenotrophomonas. No more remdesivir and dexamethasone as patient has already finished a course of antiviral and more than 13 days of steroids. Appreciate pulmonology recommendations. Continue with Zosyn to cover for potential Pseudomonas. Patient's Bactrim was transitioned over to oral yesterday though patient is spiking fevers again so we will transition back to IV for now. We will do overall 5 to 7-day course. Day 4today. Start patient on DuoNebs every 4 hours and budesonide twice daily. Continue with Eliquis 5 mg twice daily. Continue with tube feeds at current dose. Patient tolerating well though having mild diarrhea. Stop bowel regimen for now. We will do stool studies to rule out any source of infection as patient is spiking fever though unlikely. Patient is net 1.5 L negative in last 24 hours and appears euvolemic. Hold today's Lasix dose. Will dose Lasix daily as per the fluid status. Echocardiogram done earlier in the admission shows an EF of 60% with normal LV cavity size with mild aortic regurgitation and normal PASP. DVT PPX : On Eliquis 5 mg q12 h daily Lines :RT I.J ( 04/01 ), O.G Tube ( 04/01 ) Nutrition: Start patient on tube feeds with Ensure starting 20 cc/h going up to 10 cc every 4 hour with free water flushes 100 cc every 6 hours. Full code. Severely guarded prognosis. Patient's son updated regarding her health and intubated status. All the questions were answered. [place] Acute hypoxic respiratory failure secondary to COVID-19 pneumonia and ARDS. Completed dexamethasone, remdesivir and convalescent plasma. Did not tolerate decrease sedation. Increased oxygen demand today. Chest x-ray is without improvement. Sputum is positive for Stenotrophomonas maltophilia. On IV Bactrim. Will also continue IV furosemide. Discussed with Dr. Oliveira. No other changes to medications at this point. Tachypnea and peak pressure normalized with increased sedation. Currently doing better. However were still concerned about lack of improvement. Discussed with Dr. Oliveira. He expects longer need for mechanical ventilation. He is recommend ing tracheostomy. I discussed with the patient's son, Eb. We discussed risks and benefits. He asked appropriate questions which I answered to best of my knowledge. He gave me verbal permission to proceed with the procedure. We will consult Dr. Carlin. Nutrition continue tube feeds. DVT prophylaxis. She is on Eliquis currently. Prophylaxis. Famotidine. The plan of care was discussed with the multidisciplinary team. Attestations Medical Necessity Statement*: Code care time spent on this encounter is 40 minutes Coding Level of Care Code Acute Food Preparation [facility] Diagn[facility] Sepsis due to severe acute respiratory syndrome coronavirus 2 (SARS-CoV-2) U07.1; A41.89 ARDS (adult respiratory distress syndrome) J80 Secondary bacterial pneumonia J15.9 COVID-19 U07.1 Hypertension I10
[2020-04-10 12:36] LABS: Glucose Point of Care 197 mg/dL (70-110)
--- NOTE | 2020-04-10 12:52 | PC.NUTR ---
NUTR TF RECOMMENDATIONS: Jevity with goal rate of 40 ml/hr providing 1152 kcal (70%), 53 g PRO (77%), and 775 ml fluid (47%)(%NEEDS). Suggest starting TF at 20 ml/hr and increase by 10 ml Q6H as tolerated till goal rate is met. Additional 570 kcal from diprivan total kcal 1722 (106%). Suggest H2O flushes of 120 ml Q4H to approach needs or per physician.
--- NOTE | 2020-04-10 14:35 | PC.NURSE ---
Patient transferred from old VICU to new VICU department. Upon transfer, patient became tachypnic. Nurse increased sedation per MD request and ventilator support was increased by RT.
[2020-04-10] MEDS: dexmedetomidine 400 MCG in sodium chloride 0.9% (100 ml) 100 ML 16.3 MCG IV (14:48)
--- NOTE | 2020-04-10 16:59 | P.CONIM_ITS ---
Providers/Reason For Consult Consulting Physican/Specialty*: Dr. Sami Carlin MD Otolaryngology, Head & Neck Surgery Reason for Consult*: Tracheotomy/Airway Management Attending Physician: Pj Hunt Primary Care Provider: Clare Arnett MD History of Present Illness History of Present Illness Estefania Jack is a 74 year old female admitted for COVID-19 with secondary pnuemonia and sepsis who was intubated 9 days ago. I was consulted by Dr. Poole for tracheotomy placement. The patient is intubated and unresponsive. Review of Systems General: Reports: 10 or more systems reviewed and unremarkable except in HPI and below Meds/Allergies Home Medications and Allergies Home Medications Medication Instructions Recorded Confirmed Last Taken Type metoprolol succinate 50 mg 50 mg PO DAILY@03/18/20 03/23/20 03/22/20 History tablet,extended release 24 hr celecoxib 100 mg PO BID@,03/23/20 03/23/20 03/23/20 History dexamethasone 6 mg PO DAILY@03/23/20 03/23/20 03/23/20 History doxycycline hyclate 100 mg PO BID@03/23/20 03/23/20 03/23/20 History prednisone 20 mg PO BID@03/23/20 03/23/20 03/23/20 History Allergies Allergy/AdvReac Type Severity Reaction Status Date / Time cefuroxime [From Ceftin] Allergy ALGY-Rash Verified 03/23/20 09:48 erythromycin base Allergy rash Verified 03/18/20 11:36 meloxicam Allergy rash Verified 03/18/20 11:36 Current Medications Current Medications Generic Name Dose Route Start Last Admin Trade Name Freq PRN Reason Stop Dose Admin Albuterol Sulfate 2 puff 03/23/20 17:05 04/01/20 08:43 Albuterol 8 Gm Mdi INHALATION 2 puff Q4H.RESPIRATORY PRN Administration SHORTNESS OF BREATH Albuterol/Ipratropium 3 ml 04/05/20 16:00 04/10/20 15:20 Ipratropium-Albuterol 3 Ml Neb INHALATION 3 ml Q4H.RESPIRATORY NGOC Administration Apixaban 5 mg 04/02/20 09:00 04/10/20 10:00 Apixaban 5 Mg Tablet PO 5 mg BID NGOC Administration Ascorbic Acid 1,000 mg 03/24/20 18:00 04/10/20 10:00 Ascorbic Acid 500 Mg Tablet PO 1,000 mg BID NGOC Administration Budesonide 0.5 mg 04/05/20 20:03 04/10/20 08:30 Budesonide 0.5 Mg/2 Ml Neb INHALATION 0.5 mg BID.RESPIRATORY NGOC Administration Famotidine 20 mg 04/01/20 18:00 04/10/20 05:02 Famotidine 20 Mg/2 Ml Inj IVP 20 mg Q12H NGOC Administration Furosemide 40 mg 04/07/20 16:15 04/07/20 19:08 Furosemide 10 Mg/Ml Sdv 4ml IVP Not Given Q24H NGOC Dexmedetomidine HCl 400 mcg/ 104 mls @ 0 mls/hr 04/01/20 12:00 04/10/20 14:48 Sodium Chloride IV 0.7 mcg/kg/hr .Q0M NGOC 16.3 mls/hr Administration Protocol Per Protocol Propofol 1,000 mg in 100 mls @ 0 mls/hr 04/01/20 13:00 04/10/20 15:22 Diprivan IV 40 mcg/kg/min .Q0M NGOC 21.6 mls/hr Administration Protocol Per Protocol Norepinephrine Bitartrate 4 mg 254 mls @ 0 mls/hr 04/02/20 12:00 04/10/20 14:34 / Dextrose IV 8 mcg/min .Q0M NGOC 30.5 mls/hr Titration Protocol Per Protocol Fentanyl 1,000 mcg/ Sodium 100 mls @ 0 mls/hr 04/05/20 13:15 04/10/20 10:30 Chloride IV 100 mcg/hr .Q0M NGOC 10 mls/hr Titration Protocol Per Protocol Trimethoprim/Sulfamethoxazole 525 mls @ 500 mls/hr 04/08/20 19:00 04/10/20 13:28 400 mg/ Dextrose IV Infused Q8H NGOC Infusion Protocol Insulin Aspart 0 unit 04/05/20 18:00 04/10/20 12:54 Insulin Aspart 100 Unit/1 Ml SUBCUT 2 unit Q6H NGOC Administration Protocol Trimethoprim/Sulfamethoxazole 2.5 tab 04/07/20 18:00 04/08/20 11:12 Sulfamethoxazole-Trimeth Ds 160-800 Mg Tablet PO 2.5 tab Q8H NGOC Administration Zinc Gluconate 50 mg 03/24/20 12:10 04/10/20 10:01 Zinc Gluconate 50 Mg Tablet PO 50 mg DAILY NGOC Administration PFSH Acute PFSH: Medical History Hypertension Surgical History History of left knee replacement Family History Father CAD (coronary artery disease) Mother CAD (coronary artery disease) Social History Smoking and tobacco status: never smoked Alcohol intake: never Substance/Drug Use: never Vitals/I&O/Wt Last Vital Signs Temp 99.1 F 04/10/20 12:00 Pulse 77 04/10/20 15:20 Resp 18 04/10/20 15:22 BP 110/59 04/10/20 12:30 Pulse Ox 90 04/10/20 15:20 04/10/20 04/10/20 04/10/20 06:59 14:59 22:59 Intake Total 1026.191 / 3171.718 775.18 / 775.18 97.92 / 873.10 Output Total 1400 / 2050 1750 / 1750 Balance -373.809 / 1121.718 -974.82 / -974.82 97.92 / -876.90 Weight last 48 hrs Weight 90.22 kg Physical Exam HENMT: COMMON NORMALS: normocephalic, atraumatic, Normal external nose present and moist oral mucous membranes HEAD & SCALP: normocephalic and atraumatic NOSE: Normal external nose present Eye: COMMON NORMALS: Equal, round and reactive pupils present and conjunctivae normal CONJUNCTIVA: Yes conjunctivae normal PUPIL: Yes Equal, round and reactive pupils present Neck/C-Spine: COMMON NORMALS: no lymphadenopathy and supple Lymph: LYMPHATIC: no lymphadenopathy noted Psych: OTHER: The patient is unresponsive and on a ventilator. Urinary Catheter Management^: Preciado: Cath Placed During This Visit: yes Reason for Continuing Indwelling Catheter: Accurate Measurement of Urinary Output in Critically Ill Patients Urinary Catheter Date of Insertion: 03/29/20 Urinary Catheter Time of Insertion: 12:35 Data Micro: Micro: Microbiology 04/05/20 14:36 Blood Culture - Fi nal Blood NO GROWTH AFTER 5 DAYS 04/05/20 14:36 Blood Culture - Fi nal Blood NO GROWTH AFTER 5 DAYS A&P Additional A&P Information Impression: 74 yo wf with prolonged intubation whose Hospitalist requests tracheotomy. Plan: I will plan for tracheotomy in the main OR in 72 hours - the patient is to be off of Eloquis for 72 hours prior to surgery. I will discuss further with Dr. Poole. Consult Attestations Medical Necessity Statement: I was consulted for assistance in managing the patient's airway. Coding Level of Care Code Acute Table Top Tile Setter for [facility]
--- NOTE | 2020-04-10 17:03 | PC.NURSE ---
Held apixaban per Dr franco due to upcoming tracheostomy.
[2020-04-10] MEDS: enoxaparin 100 mg/mL Syringe 90 MG SUBCUT (20:08)
[2020-04-10 21:59] LABS: Fungitell 1-3-B Glucan Assay <31; Interpretation NEGATIVE
[2020-04-10] MEDS: propofol 1,000 MG/100 ML INJ 26.9 MG IV (22:16)
[2020-04-11] VITALS (73 sets, daily range): BP systolic 83–149; BP diastolic 46–72; PULSE 67–88; RESP 14–36; TEMP 36.7–37; O2SAT 87–97
[2020-04-11] MEDS: ipratropium-albuterol 3 mL Neb INHALATION ×6 (00:10→19:48)
[2020-04-11] MEDS: dexmedetomidine 400 MCG in sodium chloride 0.9% (100 ml) 100 ML 16.3 MCG IV ×3 (00:19→14:53)
[2020-04-11 00:59] LABS: Glucose Point of Care 83 mg/dL (70-110)
[2020-04-11] MEDS: sulfamethoxazole-trimeth inj 400 MG in dextrose 5 % 500 ML 500 MG IV ×2 (04:10→10:29)
--- NOTE | 2020-04-11 04:12 | PC.NURSE ---
this nurse attempted to wean down on propofol, patients RR got into the high 30's
[2020-04-11 04:22] LABS: Basophils # 0.1 10^3/uL (0.0-0.1); Basophils % 0.5 %; Eosinophils # 0.4 10^3/uL (0.0-0.8); Eosinophils % 2.7 %; Hematocrit 29.2 % (37.0-47.0); Hemoglobin 9.5 g/dL (11.5-15.3); Lymphocytes # 1.8 10^3/uL (0.8-4.8); Lymphocytes % 12.9 %; Mean Corpuscular HGB Conc 32.5 g/dL (30.0-36.0); Mean Corpuscular Hemoglobin 33.7 pg (28.0-34.0); Mean Corpuscular Volume 103.5 fL (81-99); Monocytes # 0.4 10^3/uL (0.2-0.9); Monocytes % 2.6 %; Neutrophils # 11.07 10^3/uL (1.8-7.7); Neutrophils % 80.8 %; Nucleated Red Blood Cells % 0 %; Platelet Count 209 10^3/cmm (130-400); Red Blood Count 2.82 10^6/uL (4.1-5.3); Red Cell Distribution Width 13.5 % (12.1-15.1); White Blood Count 13.7 10^3/uL (4.0-10.0)
[2020-04-11 04:56] LABS: Magnesium 2.2 mg/dL (1.7-2.3)
[2020-04-11 05:07] LABS: Albumin Level 2.5 g/dL (3.5-5.2); Blood Urea Nitrogen 10 mg/dL (8-23); Calcium 8.6 mg/dL (8.5-10.5); Carbon Dioxide 29 mmol/L (22-29); Chloride 96 mmol/L (98-107); Creatine Phosphokinase 87 U/L (26-192); Creatinine Clr Calc Pharmacy 68.1304; Glucose 112 mg/dL (65-115); Lactate Dehydrogenase 561 U/L (135-214); NT Pro B Type Natriuretic Pept 1568 pg/mL (0-125); Phosphorus 4.4 mg/dL (2.5-4.5); Sodium 134 mmol/L (136-145)
[2020-04-11 05:27] LABS: Fibrinogen 725 mg/dL (174-498)
[2020-04-11 05:32] LABS: D Dimer 5.33 ug/mIFEU (0-0.59)
[2020-04-11] MEDS: famotidine 20 mg/2 mL INJ IVP ×2 (05:43→18:52)
[2020-04-11 05:48] LABS: C Reactive Protein 377.6 mg/L (0.0-4.9); Ferritin 2289 ng/mL (15-150)
--- NOTE | 2020-04-11 06:00 | XR_ITS ---
WS: [id number] PORTABLE CHEST HISTORY: covid COMPARISON: 04/10/2020 Nasogastric tube needs to be advanced at least 15 cm for more optimal positioning. The distal tip is at the GE junction. No change since the prior study. Endotracheal tube in good position. RIGHT centra l line with tip in the distal SVC. Marked bilateral pulmonary opacifications throughout all lobes. No improvement since the prior study. No pleural effusion or pneumothorax. Cardiac size: Normal. Mediastinum/Aorta: Normal mediastinum. No osseous abnormality seen. XR/XR chest 1V portable [id number] IMPRESSION: 1. Severe bilateral pulmonary opacifications without improvement. 2. Endotracheal tube in good position. 3. Recommend advancing nasogastric tube 15 cm for more optimal positioning.
--- NOTE | 2020-04-11 06:39 | NUR.SHIFT ---
uneventful night, RT was able to decrease fio2 to 90%, sedation drips and Levophed had to be titrated up and down due to BP, seesaw RR noted RT aware, VS WNL at this time
[2020-04-11] MEDS: propofol 1,000 MG/100 ML INJ 21.6 MG IV (06:47)
[2020-04-11] MEDS: budesonide 0.5 mg/2 mL Neb INHALATION ×2 (07:53→19:48)
[2020-04-11] MEDS: zinc gluconate 50 mg Tablet PO (09:18)
[2020-04-11] MEDS: ascorbic acid 500 mg Tablet 1000 MG PO ×2 (09:18→18:52)
[2020-04-11] MEDS: enoxaparin 100 mg/mL Syringe 90 MG SUBCUT ×2 (09:18→20:39)
[2020-04-11 09:44] LABS: ABG PCO2 63.1 mmHg (35-45); ABG PH Result 7.26 (7.35-7.45); Base Excess ABG 0.2 mmol/L (-2.0-2.0); Blood Gas Allen Test Pos; Blood Gas Operator Identificat CAK; Blood Gas Sample Site Brachial, left; Blood Gas Sample Type Arterial; Carboxyhemoglobin 0.6 %THgb (0.4-20.1); HCO3 ABG 28.1 mmol/L (22-26); HGB O2 Sat 96.7 % (95-100); Ionized Calcium Level - ABG 1.2 mmol/L (1.1-1.4); Methemoglobin 1.3 % (0.4-1.5); Oxygen Device VENT; Oxygen Saturation ABG 98.6; Potassium Level - ABG 4.8 mmol/L (3.5-5.0); Total Hemoglobin 9.8 g/dL (12-16)
[2020-04-11] MEDS: propofol 1,000 MG/100 ML INJ 26.9 MG IV ×4 (11:02→20:39)
[2020-04-11 11:23] LABS: Procalcitonin 0.91 ng/mL (0-0.5)
[2020-04-11 11:49] LABS: ABG PCO2 57.2 mmHg (35-45); Alveolar-Arterial Oxygen Gradi 55.4 mmHg (5-10); Arterial Blood Gas Hematocrit 28.7 % (37-47); Base Excess ABG 1.1 mmol/L (-2.0-2.0); Blood Gas Allen Test Pos; Blood Gas Operator Identificat CAK; Blood Gas Sample Site Brachial, left; Blood Gas Sample Type Arterial; Carboxyhemoglobin 0.9 %THgb (0.4-20.1); HCO3 ABG 28.2 mmol/L (22-26); HGB O2 Sat 93.2 % (95-100); Ionized Calcium Level - ABG 1.2 mmol/L (1.1-1.4); Methemoglobin 1.7 % (0.4-1.5); Oxygen Device VENT; Oxygen Saturation ABG 95.6; PO2 ABG 81.8 mmHg (80.0-100.0); Potassium Level - ABG 4.6 mmol/L (3.5-5.0); Total Hemoglobin 9.4 g/dL (12-16)
[2020-04-11] MEDS: FUROsemide 10 mg/mL SDV 4mL 40 MG IVP ×2 (11:49→20:37)
[2020-04-11 13:30] LABS: Glucose Point of Care 191 mg/dL (70-110)
[2020-04-11 13:30] LABS: Glucose Point of Care 174 mg/dL (70-110)
[2020-04-11 13:30] LABS: Glucose Point of Care 96 mg/dL (70-110)
[2020-04-11 16:35] LABS: Blood Gas Allen Test Pos; Blood Gas Sample Site Brachial, left; Blood Gas Sample Type Arterial; Ionized Calcium Level - ABG 1.2 mmol/L (1.1-1.4)
[2020-04-11 16:36] LABS: ABG PCO2 50.3 mmHg (35-45); ABG PH Result 7.39 (7.35-7.45); Arterial Blood Gas Hematocrit 30.8 % (37-47); Base Excess ABG 4.8 mmol/L (-2.0-2.0); HCO3 ABG 30.6 mmol/L (22-26); HGB O2 Sat 87.6 % (95-100); Methemoglobin 0.6 % (0.4-1.5); Oxygen Saturation ABG 89.1; PO2 ABG 55.8 mmHg (80.0-100.0); Potassium Level - ABG 5.4 mmol/L (3.5-5.0); Total Hemoglobin 10.1 g/dL (12-16)
[2020-04-11 16:37] LABS: Alveolar-Arterial Oxygen Gradi 63.9 mmHg (5-10); Blood Gas Operator Identificat CAK; Oxygen Device VENT
--- NOTE | 2020-04-11 16:46 | P.PN_ITS ---
Subjective Subjective: Interval history: Oxygen demand has increased since yesterday. She is also on small dose of pressor. Sedated. Mild tachypnea present. Medications: Reviewed: Yes Medication Review Details: Generic Name Dose Route Start Last Admin Trade Name Zaina PRN Reason Stop Dose Admin Albuterol Sulfate 2 puff 03/23/20 17:05 04/01/20 08:43 Albuterol 8 Gm M di INHALATION 2 puff Q4H.RESPIRATORY P RN Administration SHORTNESS OF PAUL TH Albuterol/Ipratrop ium 3 ml 04/05/20 16:00 04/11/20 15:10 Ipratropium-Albu terol 3 Ml Neb INHALATION 3 ml Q4H.RESPIRATORY S CH Administration Ascorbic Acid 1,000 mg 03/24/20 18:00 04/11/20 09:18 Ascorbic Acid 50 0 Mg Tablet PO 1,000 mg BID NGOC Administration Budesonide 0.5 mg 04/05/20 20:03 04/11/20 07:53 Budesonide 0.5 M g/2 Ml Neb INHALATION 0.5 mg BID.RESPIRATORY S CH Administration Enoxaparin Sodium 90 mg 04/10/20 21:00 04/11/20 09:18 Enoxaparin 100 M g/Ml Syringe 1 mg/kg (90 mg) 04/13/20 09:05 90 mg SUBCUT Administration Q12H NGOC Famotidine 20 mg 04/01/20 18:00 04/11/20 05:43 Famotidine 20 Mg /2 Ml Inj IVP 20 mg Q12H NGOC Administration Furosemide 40 mg 04/07/20 16:15 04/07/20 19:08 Furosemide 10 Mg /Ml Sdv 4ml IVP Not Given Q24H NGOC Dexmedetomidine HC l 400 mcg/ 104 mls @ 0 mls/h r 04/01/20 12:00 04/11/20 14:53 Sodium Chloride IV 0.7 mcg/kg/hr .Q0M NGOC 16.3 mls/hr Administration Protocol Per Protocol Propofol 1,000 mg in 100 m ls @ 0 mls/hr 04/01/20 13:00 04/11/20 14:52 Diprivan IV 50 mcg/kg/min .Q0M NGOC 26.9 mls/hr Administration Protocol Per Protocol Norepinephrine Bit artrate 4 mg 254 mls @ 0 mls/h r 04/02/20 12:00 04/11/20 16:38 / Dextrose IV 11 mcg/min .Q0M NGOC 41.9 mls/hr Administration Protocol Per Protocol Insulin Aspart 0 unit 04/05/20 18:00 04/11/20 13:56 Insulin Aspart 1 00 Unit/1 Ml SUBCUT 1 unit Q6H NGOC Administration Protocol Methylprednisolone Sodium Succinate 125 mg 04/11/20 10:45 04/11/20 11:48 Methylprednisolo ne Sod Succ 125 Mg /2 Ml Inj IVP 125 mg Q6H NGOC Administration Trimethoprim/Sulfa methoxazole 2.5 tab 04/07/20 18:00 04/08/20 11:12 Sulfamethoxazole -Trimeth Ds 160-80 0 Mg Tablet PO 2.5 tab Q8H NGOC Administration Zinc Gluconate 50 mg 03/24/20 12:10 04/11/20 09:18 Zinc Gluconate 5 0 Mg Tablet PO 50 mg DAILY NGOC Administration Vitals/I&O/Wt Last Vital Signs Temp 98.6 F 04/11/20 16:30 Pulse 73 04/11/20 16:30 Resp 24 H 04/11/20 16:30 BP 119/55 04/11/20 16:30 Pulse Ox 92 04/11/20 16:30 04/11/20 04/11/20 04/11/20 06:59 14:59 22:59 Intake Total 646.608 / 2486.979 1899.859 / 1899.859 456 / 2355.859 Output Total 2600 / 4350 1800 / 1800 Balance -1953.392 / -1863.021 99.859 / 99.859 456 / 555.859 Physical Exam Narrative: EXAM NARRATIVE: Sedated. Mild distress secondary tachypnea. Skin is warm and dry. Moist mucous membranes. PERRL Neck supple. No JVD Lungs decreased breath sounds bibasilarly, coarse breath sounds and bilateral crackles. Heart S1, S2, regular Abdomen soft, nontender, bowel sounds are present Extremities trace edema. No cyanosis no calf tenderness bilaterally Urinary Catheter Management^: Preciado: Cath Placed During This Visit: yes Reason for Continuing Indwelling Catheter: Accurate Measurement of Urinary Output in Critically Ill Patients Urinary Catheter Date of Insertion: 03/29/20 Urinary Catheter Time of Insertion: 12:35 Data : 04/11/20 04:00 04/11/20 04:00 Micro: Microbiology 04/11/20 13:30 Blood Culture - Preliminary Blood SPECIMEN COLLECTED 04/11/20 13:15 Blood Culture - Preliminary Blood SPECIMEN COLLECTED 04/05/20 14:36 Blood Culture - Final Blood NO GROWTH AFTER 5 DAYS 04/05/20 14:36 Blood Culture - Final Blood NO GROWTH AFTER 5 DAYS A&P Assessment and plan (1) Sepsis due to severe acute respiratory syndrome coronavirus 2 (SARS-CoV-2): Status: Acute (2) ARDS (adult respiratory distress syndrome): Acute hypoxic respiratory failure secondary to ARDS 2/2 COVID-19 pneumonia possible bacterial pneumonia. -Blood cultures:NTD -Sputum cultures:GNR -urine Culture: -Urine Bacterial Antigen :Negative -xRay chest : 04/03: Diffuse bilateral pulmonary infiltrates progressed since April 01, 2020. Progressed opacification with Volume loss in the left lower lobe. Associated Air bronchograms. AB/12 : Ph: 7.47, PCO2: 39, PO2: 74, FIO2: 50 % P/F: 74/ 0.5 Cultures: Sputum :GNR , Blood : NTD , -On 10 days extended Remdesivir course. -Decadron 6 mg I.V Day 12 -Ascorbic acid -Zinc -S/P: 3 bags convalescent plasma -Continue vancomycin and Primaxin, and azithromycin -Advair, albuterol - pulmonary toilet -Continue Mechanical ventilation -Eliquis increased to 5 mg q12 h daily from 2.5 mg q12h daily -on Versed, fentanyl, and Propofol -On Nimbus Per protocol -Day 3/3 of proning -Lasix as needed Status: Acute (3) Secondary bacterial pneumonia: Status: Acute (4) COVID-19: -Acute hypoxic respiratory failure secondary to ARDS 2/2 COVID-19 pneumonia, viral pneumonitis, secondary bacterial pneumonia -Blood cultures:NTD -Sputum cultures:GNR -urine Culture: -Urine Bacterial Antigen :Negative -2 D Echo: Normal LVEF : 60 % NO RWMA -Remdesivir Extended 10 days course -Decadron 6 mg I.V Day 12 -Ascorbic acid -Zinc -S/P 3 bags convalescent plasma -Continue vancomycin and Primaxin, added azithromycin -Advair, albuterol -Has macrocytosis, B12 and folate within normal, peripheral smear no blasts -Pulmonary toilet -Continue Mechanical Ventilation -Eliquis 5 mg q12 h daily -Lasix as needed Status: Acute (5) Hypertension: Status: Acute Additional A&P Information ARDS and sepsis secondary to COVID-19 pneumonia with superadded bacterial infection: Septic shock: Resolved. Levophed weaned off. Mean arterial pressure more than 70s regularly. Continue with sedation at current dose. Daily sedation vacation. Very short of propofol early tomorrow morning. Daily ABGs. Procalcitonin, TSH, proBNP, inflammatory markers appreciated. Urine Legionella and bacterial antigen negative. Sputum culture positive for stenotrophomonas. No more remdesivir and dexamethasone as patient has already finished a course of antiviral and more than 13 days of steroids. Appreciate pulmonology recommendations. Continue with Zosyn to cover for potential Pseudomonas. Patient's Bactrim was transitioned over to oral yesterday though patient is spiking fevers again so we will transition back to IV for now. We will do overall 5 to 7-day course. Day 4today. Start patient on DuoNebs every 4 hours and budesonide twice daily. Continue with Eliquis 5 mg twice daily. Continue with tube feeds at current dose. Patient tolerating well though having mild diarrhea. Stop bowel regimen for now. We will do stool studies to rule out any source of infection as patient is spiking fever though unlikely. Patient is net 1.5 L negative in last 24 hours and appears euvolemic. Hold today's Lasix dose. Will dose Lasix daily as per the fluid status. Echocardiogram done earlier in the admission shows an EF of 60% with normal LV cavity size with mild aortic regurgitation and normal PASP. DVT PPX : On Eliquis 5 mg q12 h daily Lines :RT I.J ( 04/01 ), O.G Tube ( 04/01 ) Nutrition: Start patient on tube feeds with Ensure starting 20 cc/h going up to 10 cc every 4 hour with free water flushes 100 cc every 6 hours. Full code. Severely guarded prognosis. Patient's son updated regarding her health and in tubated status. All the questions were answered. [place] Acute hypoxic respiratory failure secondary to COVID-19 pneumonia and ARDS. Worsening. completed dexamethasone, remdesivir and convalescent plasma. Increasing oxygen demand today. ABG showed hypercapnia. Sputum positive for S tenotrophomonas maltophilia. Suspected sepsis and septic shock. Ordering another dose of convalescent plasma, starting steroids again. Will switch antibiotics to vancomycin, imipenem, Levaquin. Continue norepinephrine as needed. Continuing respiratory treatments. Discussed with the respiratory therapist. Increased respiratory rate and decreased PEEP to avoid auto PEEP and help with hypotension. Repeat ABGs show some improvement of hypercapnia. Will repeat ABGs later. Discussed with the nurse. We will start proning today. Continue furosemide. Discussed with Dr. Oliveira. He will see the patient later today. Tracheostomy is scheduled for Thursday afternoon by dr Carlin. Anticoagulation is switched from Eliquis to Lovenox which will be stopped after morning dose on Thursday as discussed with Dr. Carlin. Nutrition continue tube feeds. DVT prophylaxis. Enoxaparin full dose. Prophylaxis. Famotidine. The plan of care was discussed with the multidisciplinary team. Patient's condition and the problems were discussed with her son Eb. I answered to all his questions to the best of my knowledge. He verbalized satisfaction with the conversation and explanations. He will visit his mom today. He is aware about current problems and possibility of further worsening of her condition. We discussed possibility of CODE STATUS changes. However at this point he is still thinking about that. Critical care time spent on this encounter is 50 minutes today Attestations Medical Necessity Statement*: Patient is still in critical condition in ICU. 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
[2020-04-11] MEDS: levofloxacin-dextrose 5 % 750 MG/150 ML PREMIX 100 MG IV (18:53)
[2020-04-11 19:00] LABS: Glucose Point of Care 185 mg/dL (70-110)
--- NOTE | 2020-04-11 19:40 | PM.ACPR ---
Procedure/Consent Time out: Time Out Performed: Yes Consent: Consent for Procedure: Emergency procedure and Risks & Benefits reviewed Procedure Narrative: Name of the procedure: Right radial ultrasound-guided arterial catheter placement. Medications: Fentanyl, propofol and Precedex drip. Description of the procedure: The procedure was performed as an emergent procedure. The site was prepared using sterile technique. The left radial artery was identified under ultrasound guidance from pulsatility. Under ultrasound guidance the introducer needle was advanced till flash back was noted. Using Seldinger technique the right radial arterial line was inserted. The catheter was secured with 2-0 silk suture and Tegaderm. Complications: None. Acute Procedures Epistaxis Control: Time out performed: Yes
--- NOTE | 2020-04-11 19:41 | P.PN_ITS ---
Subjective Subjective: Interval history: I have seen and examined the patient. The patient had been doing well before but overnight she had desaturation requiring escalation of the FiO2 to 100%. The patient was on assist control mechanical ventilation. The patient was breathing in the mid 30s. She was paralyzed with rocuronium. Currently the patient is on pressure control, pressure above PEEP 22, PEEP of 8, FiO2 of 70% and respiratory rate of 28. The tidal volume is around 350 cc. The patient will be paralyzed with cisatracurium. The patient is sedated with propofol, fentanyl and Precedex. The patient is not arousable and not following any commands. I had performed a bedside ultrasound. The patient has bilateral B-lines. The IVC is dilated without any respirophasic variation. There are dilated hepatic veins. Good cardiac contractility no evidence of right-sided pressure volume overload. No significant pleural effusion. Medications: Reviewed: Yes Vitals/I&O/Wt Last Vital Signs Temp 98.6 F 04/11/20 16:30 Pulse 73 04/11/20 16:30 Resp 31 H 04/11/20 19:26 BP 119/55 04/11/20 16:30 Pulse Ox 92 04/11/20 16:30 04/11/20 04/11/20 04/11/20 06:59 14:59 22:59 Intake Total 646.608 / 2486.979 1899.859 / 3726.136 9514 / 3080.859 Output Total 2600 / 4350 1800 / 1800 Balance -1953.392 / -1863.021 99.859 / 99.859 1181 / 1280.859 Physical Exam Narrative: EXAM NARRATIVE: General: Patient is intubated and sedated. Neck: No JVD Respiratory: Auscultation: Crackles at bilateral lung bases, no wheezing or rhonchi Cardiovascular: Regular rate and rhythm, S1-S2 present, no murmur, minimal peripheral edema Abdomen: Soft, sluggish bowel sound Skin: No rash Neuro: The patient is sedated and paralyzed Urinary Catheter Management^: Preciado: Cath Placed During This Visit: yes Reason for Continuing Indwelling Catheter: Accurate Measurement of Urinary Output in Critically Ill Patients Urinary Catheter Date of Insertion: 03/29/20 Urinary Catheter Time of Insertion: 12:35 Data : 04/11/20 04:00 04/11/20 04:00 Micro: Microbiology 04/11/20 13:30 Blood Culture - Preliminary Blood SPECIMEN COLLECTED 04/11/20 13:15 Blood Culture - Preliminary Blood SPECIMEN COLLECTED 04/05/20 14:36 Blood Culture - Final Blood NO GROWTH AFTER 5 DAYS 04/05/20 14:36 Blood Culture - Final Blood NO GROWTH AFTER 5 DAYS Attestation for Other Data: I personally reviewed and interpreted the following: Other data: I have reviewed the patient's laboratory, microbiologic and radiologic data. The chest x-ray today revealed bilateral diffuse infiltrate. There is no new change compared to before. The latest blood cultures have been negative. The blood cultures are repeated today. There is mild leukocytosis. A&P Assessment and plan (1) ARDS (adult respiratory distress syndrome): The patient is suffering from ARDS secondary to SARS-CoV-2 pneumonia. When I first evaluated the patient the patient was on volume control mechanical ventilation. Her peak pressure was 32 with a plateau pressure of 30. With a PEEP of 8 the patient had a driving pressure of 22. The patient is 5 feet 4. Her optimal tidal volume is around 350 cc. I would switch the patient to pressure control mechanical ventilation with APAP of 22 and PEEP of 8. Her tidal volume was holding around 350 cc. Currently she is on an FiO2 of 70%. On bedside ultrasound the patient has evidence of volume overload. I am going to obtain a blood gas and optimize the ventilator setting based on that. A tidal volume needs to be minimized with approximately 4 to 6 mL/kg of ideal body weight. The respiratory rate can be increased further if there is any evidence of CO2 retention. Permissive hypercapnia with a PCO2 of 60 is acceptable. I will start the patient on diuretics, Lasix 40 mg twice a day to ensure that the patient is a liter negative in the next 24 hours. The patient will be paralyzed with cisatracurium for the time being. It is unclear why the patient is so tachypneic even when she is very sedated. This raises the question of AQUATICS DIRECTOR insult. When the patient is stable she will need a CT scan of the head to make sure there is no stroke. SARS-CoV-2 is associated with increased thrombosis risk. Currently she is anticoagulated with Lovenox. Status: Acute (2) Secondary bacterial pneumonia: The patient has grown Stenotrophomonas maltophilia on the sputum. The patient had been on Bactrim. I am going to repeat an endotracheal aspirate culture. Her antibiotic regimen has been switched to imipenem, linezolid and levofloxacin. Levofloxacin will also treat stenotrophomonas although the Bactrim is the preferred agent. It is unclear to me whether the patient actually has a secondary pneumonia secondary to stenotrophomonas or this is colonization. We are going to repeat the blood cultures today as well as fungal culture. Her beta D glucan level was normal before. There is no evidence of invasive fungal infection at this time. Status: Acute (3) Septic shock: The patient is requiring pressor support. This is likely secondary to a combination of vasodilatory medications, secondary bacterial infection and RAMAN S-CoV-2 pneumonia. Maintain a map of 65. Overall, the patient's outcome might not be a positive one. Based on her overall trajectory I will have a conversation with the decision maker. Status: Acute (4) Pneumonia due to COVID-19 virus: I am going to restart the patient on dexamethasone 6 mg IV daily. There is no data beyond 10 days of therapy or a higher dose of dexamethasone or other corticosteroid having a benefit. However the patient continues to have high inflammatory marker and there is a chance that she might benefit from the dexamethasone. Unfortunately, the dexamethasone will likely also increase the risk of secondary bacterial or fungal infection. 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
--- NOTE | 2020-04-11 20:03 | PC.NURSE ---
Prone patient Dr. Hunt ordered for patient to be paralyzed and proned. Paralytic started and titrating for proning. Dr. Oliveira ordered no proning. Change from rocuronium to nimbex. See orders for further details.
--- NOTE | 2020-04-11 20:04 | PC.NURSE ---
D/C Juan Manuel continued for paralytic per protocol until Rx brings ordered Nimbex
--- NOTE | 2020-04-11 20:09 | PC.NURSE ---
RR 36, vent set RR at 28, Train of four 4 twitches, Juan Manuel currently running at 9 mcg/kg/min
[2020-04-11 20:11] LABS: ABG PCO2 55.1 mmHg (35-45); ABG PH Result 7.35 (7.35-7.45); Arterial Blood Gas Hematocrit 28.5 % (37-47); Base Excess ABG 4.2 mmol/L (-2.0-2.0); Blood Gas Operator Identificat HARKR; Blood Gas Sample Site ART LINE; Blood Gas Sample Type Arterial; HCO3 ABG 30.6 mmol/L (22-26); Oxygen Device VENT; PO2 ABG 57.8 mmHg (80.0-100.0)
--- NOTE | 2020-04-11 20:40 | PC.NURSE ---
Propofol running at 90 mcg/kg/min at shift change, increased to 100 mcg/kg/min per T.O. from Dr. Oliveira
--- NOTE | 2020-04-11 20:44 | PC.NURSE ---
Dr. Oliveira called and informed this nurse to rely on RR for vent compliance over Train of four and bis monitor when titrating Nimbex
[2020-04-11] MEDS: cisatracurium 100 MG in sodium chloride 0.9% 50 ML 10.8 MG IV (21:08)
--- NOTE | 2020-04-11 21:40 | PC.NURSE ---
Nimbex started at initial rate of 2mcg/kg/min per protocol, when attempting to increase drip rate by 0.25 mcg/kg/min per protocol, MAR is charted in mg/min/kg and will not accept enough decimal places to convert mcg to mg, Rx notified and informed this nurse that it is not something that Rx can fix, this nurse is unable to to put in a Nimbex order that is in mcg/kg/min instead of mg/kg/min, Mar will stay at current 0.002 mg/kg/min and drip will be titrated per protocol
--- NOTE | 2020-04-11 21:53 | PC.NURSE ---
Nimbex increased to 2.25 mcg/kg/min per protocol. Dr. Oliveira notified of MAR not accepting titration changes
[2020-04-11] MEDS: remdesivir 100 MG in sodium chloride 0.9% (100 ml) 100 ML IV (22:06)
[2020-04-11] MEDS: propofol 1,000 MG/100 ML INJ 53.9 MG IV (22:25)
[2020-04-12] VITALS (85 sets, daily range): BP systolic 97–155; BP diastolic 46–91; PULSE 67–102; RESP 26–32; TEMP 36.4–36.8; O2SAT 87–94
[2020-04-12] MEDS: linezolid premix 600 MG/300 ML PREMIX 300 MG IV ×3 (00:04→22:18)
[2020-04-12] MEDS: propofol 1,000 MG/100 ML INJ 48.5 MG IV ×3 (00:16→03:48)
[2020-04-12] MEDS: dexmedetomidine 400 MCG in sodium chloride 0.9% (100 ml) 100 ML 16.3 MCG IV ×4 (00:37→15:21)
[2020-04-12] MEDS: ipratropium-albuterol 3 mL Neb INHALATION ×6 (00:39→20:02)
[2020-04-12 01:08] LABS: Glucose Point of Care 146 mg/dL (70-110)
--- NOTE | 2020-04-12 01:11 | PC.NURSE ---
RR 34, train of 4 4 twitches to R eyebrow, nimbex increased to 2.5 mcg/kg/min per protocol
[2020-04-12 03:42] LABS: ABG PCO2 48.9 mmHg (35-45); ABG PH Result 7.41 (7.35-7.45); Arterial Blood Gas Hematocrit 28.7 % (37-47); Base Excess ABG 5.7 mmol/L (-2.0-2.0); Blood Gas Operator Identificat HARKR; Blood Gas Sample Site ART LINE; Blood Gas Sample Type Arterial; HCO3 ABG 31.1 mmol/L (22-26); Oxygen Device VENT
[2020-04-12 03:49] LABS: Hematocrit 26.3 % (37.0-47.0); Hemoglobin 8.7 g/dL (11.5-15.3); Mean Corpuscular HGB Conc 33.1 g/dL (30.0-36.0); Mean Corpuscular Hemoglobin 34.3 pg (28.0-34.0); Mean Corpuscular Volume 103.5 fL (81-99); Mean Platelet Volume 10.2 fL (7.4-10.4); Platelet Count 203 10^3/cmm (130-400); Red Blood Count 2.54 10^6/uL (4.1-5.3); Red Cell Distribution Width 13.4 % (12.1-15.1); White Blood Count 8.9 10^3/uL (4.0-10.0)
[2020-04-12 04:19] LABS: Alanine Aminotransferase 21 U/L (0-33); Albumin Level 2.2 g/dL (3.5-5.2); Alkaline Phosphatase 164 IU/L (35-105); Anion Gap 13.2 (5-19); Aspartate Amino Transferase 21 U/L (0-32); Blood Urea Nitrogen 15 mg/dL (8-23); C Reactive Protein 323.4 mg/L (0.0-4.9); Calcium 7.9 mg/dL (8.5-10.5); Carbon Dioxide 29 mmol/L (22-29); Chloride 96 mmol/L (98-107); Creatinine Clr Calc Pharmacy 68.1304; Globulin 3.6 g/dL (1.3-4.6); Glucose 191 mg/dL (65-115); Magnesium 1.9 mg/dL (1.7-2.3); Osmolality Calculated 284 mOsm/kg (285-295); Potassium 4.2 mmol/L (3.5-5.1); Sodium 134 mmol/L (136-145); Total Bilirubin 0.2 mg/dL (0.15-1.2); Total Protein 5.8 g/dL (6.6-8.7)
[2020-04-12 04:30] LABS: Total Cells Counted 100 (0-100)
[2020-04-12 04:31] LABS: Absolute Neutrophil 8.2 10^3/cmm (1.4-6.5); Absolute Segmented Neutrophil 8.2 10/cmm (1.6-7.1); Anisocytosis 1+; Eosinophils 0 %; Hypochromasia Trace; Lymphocytes 7 %; Macrocytosis 1+; Monocytes Absolute 0.1 10^3/cmm (0.1-0.6); Platelet Estimate Normal (Normal); Polychromasia Trace; Segmented Neutrophils 92 %
[2020-04-12] MEDS: cisatracurium 100 MG in sodium chloride 0.9% 50 ML 10.8 MG IV (04:46)
[2020-04-12 05:37] LABS: Glucose Point of Care 179 mg/dL (70-110)
[2020-04-12] MEDS: propofol 1,000 MG/100 ML INJ 53.9 MG IV ×2 (05:48→07:30)
--- NOTE | 2020-04-12 06:00 | XR_ITS ---
WS: [id number] Portable AP semiupright chest, 04/12/2020 Clinical Data: intubated, PNA Comparison: Portable chest, 04/11/2020 Findings: The severe bilateral pulmonary opacifications have cleared slightly. The endotracheal tube, nasogastric tube and right internal jugular venous catheter are in good position. No definite pleura l effusions are seen. The heart is normal. XR/XR chest 1V portable [id number] Impression: 1. Minimal change in severe bilateral pulmonary opacifications. 2. Satisfactory position of multiple tubes.
--- NOTE | 2020-04-12 06:30 | PC.NURSE ---
Dr. shaikh notified of RR high 30s to 40s, Nimbex running at 12 mcg/kg/min
--- NOTE | 2020-04-12 07:00 | USCV_ITS ---
Estefania Jack Age: 74 Gender: F : 1945 Exam Date: 04/12/2020 13:28 Ordering Phys: Jonathan Rios MD Technologist: Armando Fallon Exam Location: [facility] [place] Indication: DVT HISTORY: DVT. PROCEDURES: Venous duplex imaging was performed in bilateral lower extremities. The following venous structures were evaluated: common femoral vein, profunda vein, proximal portion of the greater saphenous vein, superficial femoral vein, and the popliteal vein. In addition, the posterior tibial and peroneal trunk were evaluated. Serial compression, augmentation maneuvers, and spectral Doppler flow evaluation were performed. FINDINGS: Normal 2-D Doppler and augmentation and compressibility throughout the lower extremity venous structures. Additional imaging through the proximal calf veins also reveals no thrombus. Limited evaluation of the greater saphenous vein is patent with no thrombus. CONCLUSIONS No DVT bilateral lower extremities. Dr. Stacy Vyas DO (Electronically Signed) Final Date: 12 April 2020 14:19 S
--- NOTE | 2020-04-12 07:16 | PC.NURSE ---
Jason from Rx placed new order for Nimbex titration to flow over to MAR. This RN clarified order to be titratable on nursing end.
[2020-04-12] MEDS: cisatracurium 100 MG in sodium chloride 0.9% 50 ML 54.1 MG IV (07:30)
[2020-04-12] MEDS: budesonide 0.5 mg/2 mL Neb INHALATION ×2 (08:14→20:02)
[2020-04-12] MEDS: enoxaparin 100 mg/mL Syringe 90 MG SUBCUT ×2 (09:11→20:52)
[2020-04-12] MEDS: dexamethasone 4 mg/mL INJ 6 MG IV (09:11)
[2020-04-12] MEDS: cisatracurium 100 MG in sodium chloride 0.9% 50 ML 43.3 MG IV (09:22)
[2020-04-12] MEDS: propofol 1,000 MG/100 ML INJ 43.1 MG IV (09:36)
--- NOTE | 2020-04-12 11:11 | P.PN_ITS ---
Subjective Subjective: Interval history: Patient is intubated,sedated and paralysed and on mechanical ventilation. Urine output :2.2 Ls LOS: -1.7 Ls .Currently she is on levophed of 5MCG/MIN and is maintaining MAP > 65.She has remained afebrile. Vitals and labs have been reviewed. Medications: Reviewed: Yes Medication Review Details: Generic Name Dose Route Start Last Admin Trade Name Jaquanq PRN Reason Stop Dose Admin Albuterol Sulfate 2 puff 03/23/20 17:05 04/01/20 08:43 Albuterol 8 Gm M di INHALATION 2 puff Q4H.RESPIRATORY P RN Administration SHORTNESS OF PAUL TH Albuterol/Ipratrop ium 3 ml 04/05/20 16:00 04/11/20 15:10 Ipratropium-Albu terol 3 Ml Neb INHALATION 3 ml Q4H.RESPIRATORY S CH Administration Ascorbic Acid 1,000 mg 03/24/20 18:00 04/11/20 09:18 Ascorbic Acid 50 0 Mg Tablet PO 1,000 mg BID NGOC Administration Budesonide 0.5 mg 04/05/20 20:03 04/11/20 07:53 Budesonide 0.5 M g/2 Ml Neb INHALATION 0.5 mg BID.RESPIRATORY S CH Administration Enoxaparin Sodium 90 mg 04/10/20 21:00 04/11/20 09:18 Enoxaparin 100 M g/Ml Syringe 1 mg/kg (90 mg) 04/13/20 09:05 90 mg SUBCUT Administration Q12H NGOC Famotidine 20 mg 04/01/20 18:00 04/11/20 05:43 Famotidine 20 Mg /2 Ml Inj IVP 20 mg Q12H NGOC Administration Furosemide 40 mg 04/07/20 16:15 04/07/20 19:08 Furosemide 10 Mg /Ml Sdv 4ml IVP Not Given Q24H NGOC Dexmedetomidine HC l 400 mcg/ 104 mls @ 0 mls/h r 04/01/20 12:00 04/11/20 14:53 Sodium Chloride IV 0.7 mcg/kg/hr .Q0M NGOC 16.3 mls/hr Administration Protocol Per Protocol Propofol 1,000 mg in 100 m ls @ 0 mls/hr 04/01/20 13:00 04/11/20 14:52 Diprivan IV 50 mcg/kg/min .Q0M NGOC 26.9 mls/hr Administration Protocol Per Protocol Norepinephrine Bit artrate 4 mg 254 mls @ 0 mls/h r 04/02/20 12:00 04/11/20 16:38 / Dextrose IV 11 mcg/min .Q0M NGOC 41.9 mls/hr Administration Protocol Per Protocol Insulin Aspart 0 unit 04/05/20 18:00 04/11/20 13:56 Insulin Aspart 1 00 Unit/1 Ml SUBCUT 1 unit Q6H NGOC Administration Protocol Methylprednisolone Sodium Succinate 125 mg 04/11/20 10:45 04/11/20 11:48 Methylprednisolo ne Sod Succ 125 Mg /2 Ml Inj IVP 125 mg Q6H NGOC Administration Trimethoprim/Sulfa methoxazole 2.5 tab 04/07/20 18:00 04/08/20 11:12 Sulfamethoxazole -Trimeth Ds 160-80 0 Mg Tablet PO 2.5 tab Q8H NGOC Administration Zinc Gluconate 50 mg 03/24/20 12:10 04/11/20 09:18 Zinc Gluconate 5 0 Mg Tablet PO 50 mg DAILY NGOC Administration Vitals/I&O/Wt Last Vital Signs Temp 98.6 F 04/11/20 16:30 Pulse 79 04/12/20 11:05 Resp 26 H 04/12/20 11:08 BP 150/77 04/12/20 07:30 Pulse Ox 89 L 04/12/20 08:18 04/11/20 04/12/20 04/12/20 22:59 06:59 14:59 Intake Total 1782.193 / 3682.052 1032.670 / 4714.722 486.063 / 486.063 Output Total 1200 / 3000 2000 / 5000 Balance 582.193 / 682.052 -967.330 / -285.278 486.063 / 486.063 Physical Exam Narrative: EXAM NARRATIVE: intubated,sedated and paralysed.Off sedation GCS not done today. Const: COMMON NORMALS: patient oriented x3 HENMT: COMMON NORMALS: normocephalic and atraumatic HEAD & SCALP: normoc ephalic and atraumatic Chest: COMMONS NORMALS: normal inspection of the chest and normal palpation of entire chest wall CHEST: Yes Symmetrical chest wall rise Resp: COMMON NORMALS: clear to auscultation bilaterally EFFORT & IN SPECTION: Yes symmetric chest movement AUSCULTATION: clear to auscultation bilaterally OTHER: Coarse and diminished breath sound, has B/L Basal Crackles Cardio: COMMON NORMALS: regular rate, regular rhythm, S1 normal heart sound present, S2 normal heart sound present, No gallops present (Cardio), No murmurs present (Cardio), No rub (Cardio) and Peripheral pulses 2+ throughout RATE: regular rate RHYTHM: regular rhythm HEART SOUNDS: S1 normal heart sound present and S2 normal heart sound present PERIPHERAL PULSES: Peripheral pulses 2+ throughout GI: COMMON NORMALS: Normal to inspection, nondistended, normoactive bowel sounds present, Soft to palpation, non-tender, No hepatosplenomegaly present and no masses AUSCULTATION: Yes normoactive bowel sounds PALPATION: Yes Soft to palpation and Yes No hepatosplenomegaly present RECTAL EXAM: deferred Extremity: COMMON NORMALS: no clubbing, cyanosis or edema and no pedal edema Neuro: COMMON NORMALS: patient oriented x3 Urinary Catheter Management^: Preciado: Cath Placed During This Visit: yes Reason for Continuing Indwelling Catheter: Accurate Measurement of Urinary Output in Critically Ill Patients Urinary Catheter Date of Insertion: 03/29/20 Urinary Catheter Time of Insertion: 12:35 Data : 04/12/20 03:40 04/12/20 03:40 Micro: Microbiology 04/11/20 13:30 Blood Culture - Preliminary Blood SPECIMEN COLLECTED 04/11/20 13:15 Blood Culture - Preliminary Blood SPECIMEN COLLECTED A&P Assessment and plan (1) Sepsis due to severe acute respiratory syndrome coronavirus 2 (SARS-CoV-2): Status: Acute (2) ARDS (adult respiratory distress syndrome): Acute hypoxic respiratory failure secondary to ARDS 2/2 COVID-19 pneumonia possible bacterial pneumonia. -Blood cultures:NTD -Sputum cultures:GNR -urine Culture: -Urine Bacterial Antigen :Negative -Sputum culture :(04/01) Stenotrophomonas Malttophilia - Urine Legionella and bacterial antigen negative. - Stool : Lactoferrin : Negative, c.diff :Negative, FOBT:Negative - Repeat Cultures ordered on 04/11 -X- Ray chest : 04/12: severe bilateral pulmonary opacifications have cleared slightly. -2 D Echo: Normal LVEF : 60 % NO RWMA - CTA :No sign of acute PE. - CV venous duplex LE BI:No DVT bilateral lower extremities. - AB/21:Ph : 7.41, PCO2:48, PO2:58, FIO2:85 % P/F: 58/0.85 -On 10 days extended Remdesivir course.Restarted on 04/11 -Decadron 6 mg I.V resatarted on 04/11 -Ascorbic acid -Zinc -S/P:4 bags convalescent plasma -She has been on vancomycin,Primaxin, and azithromycin, initially and then was switched to I.V followed by PO Bactrim.Which was stopped on 04/11 and she was started on zyvox,imipenam as well as Levoflxacin. -Duonebs as well as budesonide - pulmonary toilet -Continue Mechanical ventilation -Initiaaly on Eliquis 5 mg q12 h daily.Which was held as she is due for treach and she is currently on lovenox 90 mg sc q12 h daily -on fentanyl, and Propofol - On Cisatracurium Per protocol - On Levophed - Completed 3/3 days of proning - Lasix as needed Status: Acute (3) Septic shock: Plan as 1 Status: Acute (4) Secondary bacterial pneumonia: Status: Acute (5) COVID-19: Status: Acute Additional A&P Information DVT PPX: On Lovenox Code Status :Full code Prognosis :Guarded Attestations Medical Necessity Statement*: Patient needs to be in hospital for the management of R/F 2/2 Severe ARDS as well as septic shock Coding Level of Care Code 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
[2020-04-12 11:23] LABS: Glucose Point of Care 244 mg/dL (70-110)
[2020-04-12] MEDS: cisatracurium 100 MG in sodium chloride 0.9% 50 ML 37.9 MG IV (11:29)
[2020-04-12] MEDS: propofol 1,000 MG/100 ML INJ 26.9 MG IV ×2 (12:32→16:32)
--- NOTE | 2020-04-12 13:32 | PC.SOCIAL ---
IMM not updated Did not updated pt's family on IMM. Pt is not within 48hrs of discharge.
[2020-04-12] MEDS: cisatracurium 100 MG in sodium chloride 0.9% 50 ML 32.5 MG IV (15:21)
--- NOTE | 2020-04-12 15:27 | P.PN_ITS ---
Subjective Subjective: Interval history: The patient was seen and examined this morning. The patient remained stable overnight. Currently she is paralyzed and sedated. Interestingly, this morning, the respiratory rate went up even though the patient was sedated and paralyzed and she ended up on the maximum dose of the paralytics. The apparent vent noncompliance was actually secondary to inappropriate triggering due to water condensation in the ventilator circuit. Following exchange of the HME filter this problem has resolved. We are currently going down on the paralytics as well as the sedation. Patient had excellent urine output with Lasix yesterday. However overall the patient is not negative. The chest x-ray obtained this morning revealed improvement compared to yesterday. Medications: Reviewed: Yes Vitals/I&O/Wt Last Vital Signs Temp 97.6 F 04/12/20 11:00 Pulse 77 04/12/20 13:31 Resp 26 H 04/12/20 13:39 BP 115/57 04/12/20 12:30 Pulse Ox 90 04/12/20 12:30 04/12/20 04/12/20 04/12/20 06:59 14:59 22:59 Intake Total 1032.670 / 4714.722 922.514 / 922.514 Output Total 2000 / 5000 200 / 200 Balance -967.330 / -285.278 722.514 / 722.514 Physical Exam Narrative: EXAM NARRATIVE: General: Patient is intubated and sedated. Neck: No JVD Respiratory: Auscultation: Crackles at bilateral lung bases, no wheezing or rhonchi Cardiovascular: Regular rate and rhythm, S1-S2 present, no murmur, minimal peripheral edema Abdomen: Soft, sluggish bowel sound Skin: No rash Neuro: The patient is sedated and paralyzed Urinary Catheter Management^: Preciado: Cath Placed During This Visit: yes Reason for Continuing Indwelling Catheter: Accurate Measurement of Urinary Output in Critically Ill Patients Urinary Catheter Date of Insertion: 03/29/20 Urinary Catheter Time of Insertion: 12:35 Data : 04/12/20 03:40 04/12/20 03:40 Micro: Microbiology 04/11/20 13:30 Blood Culture - Preliminary Blood NEGATIVE TO DATE 04/11/20 13:15 Blood Culture - Preliminary Blood NEGATIVE TO DATE Attestation for Other Data: I personally reviewed and interpreted the following: Other data: I have reviewed the patient laboratory, microbiologic and radiologic data. The latest blood cultures have been negative. The mild leukocytosis has resolved. There is some improvement in bilateral chest infiltrate. A&P Assessment and plan (1) ARDS (adult respiratory distress syndrome): The patient is suffering from ARDS secondary to SARS-CoV-2 pneumonia. The apparent noncompliance to the ventilator was secondary to ineffective triggering mechanism due to condensation in the ventilator circuitry. Current the patient is completely compliant with the ventilator and paralyzed. We will titrate down the paralytics as well as the sedation. The patient is currently on dexamethasone. No antiviral agent has shown efficacy after 3 weeks of illness with COVID-19. Status: Acute (2) Secondary bacterial pneumonia: The patient is currently broadly covered with imipenem, linezolid and levofloxacin. Status: Acute (3) Septic shock: The patient is requiring pressor support. This is likely secondary to a combination of vasodilatory medications, secondary bacterial infection and SARS-CoV-2 pneumonia. Maintain a map of 65. The patient is on a small dose of Levophed. Status: Acute (4) Pneumonia due to COVID-19 virus: Status: Acute Attestations Medical Necessity Statement*: Will defer to the primary team Coding Level of Care Code Acute Software Implementation Specialist for [facility] Diagnoses ARDS (adult respiratory distress syndrome) J80 Secondary bacterial pneumonia J15.9 Septic shock A41.9; R65.21 Pneumonia due to COVID-19 virus U07.1; J12.89
[2020-04-12 17:08] LABS: Anion Gap 12.1 (5-19); Blood Urea Nitrogen 17 mg/dL (8-23); Calcium 8.2 mg/dL (8.5-10.5); Carbon Dioxide 30 mmol/L (22-29); Chloride 93 mmol/L (98-107); Creatinine Clr Calc Pharmacy 68.1304; Glucose 154 mg/dL (65-115); Osmolality Calculated 277 mOsm/kg (285-295); Potassium 4.1 mmol/L (3.5-5.1); Sodium 131 mmol/L (136-145)
[2020-04-12 17:15] LABS: Glucose Point of Care 144 mg/dL (70-110)
--- NOTE | 2020-04-12 18:22 | PM.TDS ---
Transfer Summary Providers Date of Admission: 03/24/20 17:42 Date of Discharge: 04/12/20 Attending Provider at Admission: Mikael Bowden MD Attending Provider at Transfer: Jonathan Rios MD Primary Care Provider: Clare Arnett MD Anticipated Date of Transfer: Anticipated date of transfer: 04/12/20 Receiving Facility & Provider: Receiving Provider: [] Receiving facility: [] Diagnoses at Discharge Discharge Diagnosis (1) ARDS (adult respiratory distress syndrome): Status: Acute (2) Septic shock: Status: Acute (3) Secondary bacterial pneumonia: Status: Acute (4) COVID-19: Status: Acute (5) Sepsis due to severe acute respiratory syndrome coronavirus 2 (SARS-CoV-2): Status: Acute Reason for Visit Reason for Visit: LOW O2 LEVELS, COVID+ Hospital Course Hospital Course 74 year old female with a past medical history of hypertension, who presents to [facility] for complaints of shortness of breath, cough, fatigue, malaise related to COVID-19.Patient tested positive on the , she had symptoms for roughly a week, after that her oxygen requirements was increasing , she was feeling more short of breath, was having low-grade fevers, no loss of taste, no loss of smell, no chest pain, no lightheadedness, no dizziness.She was admitted for the management of COVID PNA. Her hospital course was complicated by interval development of severe ARDS 2/2 to COVID PNA with possible superimposed bacterial PNA.Initially she was kept on non invasive modes of ventilation ( Nc, HHFONC,BIPAP ) Which she unfortunately failed and had to be intubated on 04/01 and has been on mechanical ventilation since then. Severe ARDS (adult respiratory distress syndrome): Acute hypoxic respiratory failure secondary to ARDS 2/2 COVID-19 pneumonia possible bacterial pneumonia. -Blood cultures:NTD.Sputum culture :(04/01) Stenotrophomonas Malttophilia. Urine Bacterial Antigen :Negative.Urine Legionella and bacterial antigen negative. Stool : Lactoferrin : Negative, c.diff :Negative, FOBT:Negative. Repeat Cultures ordered on 04/11:Prelim NTD. X- Ray chest : 04/12: severe bilateral pulmonary opacifications have cleared slightly. 2 D Echo: Normal LVEF : 60 % NO RWMA. CTA : (03/23) No sign of acute PE. CV venous duplex LE BI:No DVT bilateral lower extremities. AB/21:Ph : 7.41, PCO2:48, PO2:58, FIO2:85 % P/F: 58/0.85.On Extended Remdesivir ( 10/30 ). On Decadron 6 mg I.V resatarted on 04/11 ( Has received for a total 14 days ). S/P:4 bags convalescent plasma.S/P 3/3 Days of proning.She has been on eliquis 5 MG q12h daily recently switched to lovenox 90 mg sc q12 h as there was a possibility for treach.She has also been on I.V Diuresis as needed to facilitate dry lung ventilation. She has been on vancomycin,Primaxin, and azithromycin, initially and then was switched to I.V followed by PO Bactrim to cover for Stenotrophomonas Malttophilia .Which was stopped on 04/11 and she was started on zyvox,imipenam as well as Levoflxacin.She has been on levophed for septic shock along with above mentioned broad spectrum Abxs. Patient is being transferred to [facility] for further management, thinking that she will need a higher level of care. Pertinent Imaging studies : CT angio chest PE protcl: 1. No sign of acute PE. 2. Scattered groundglass infiltrates throughout both lungs suggesting pneumonia. This pattern can be seen with Covid 19 pneumonia. CV echo complete: 1. Normal left ventricular cavity size. Normal left ventricular systolic function. Left ventricular ejection fraction is estimated at 60 %. No diagnostic regional wall motion abnormalities. Normal diastolic function. 2. Mild aortic valve regurgitation. 3. No pericardial effusion. 4. Normal pulmonary artery pressure. CV venous duplex LE BI : No DVT bilateral lower extremities. Physical Exam Narrative: EXAM NARRATIVE: EXAM NARRATIVE: intubated,sedated and paralysed.Off sedation GCS not done today. Const COMMON NORMALS: [facility] COMMON NORMALS: normocephalic and atraumatic HEAD & SCALP: normocephalic and atraumatic Chest COMMONS NORMALS: normal inspection of the chest and normal palpation of entire chest wall CHEST: Yes Symmetrical chest wall rise Resp COMMON NORMALS: clear to auscultation bilaterally EFFORT & INSPECTION: Yes symmetric chest movement AUSCULTATION: clear to auscultation bilaterally OTHER: Coarse and diminished breath sound, has B/L Basal Crackles Cardio COMMON NORMALS: regular rate, regular rhythm, S1 normal heart sound present, S2 normal heart sound present, No gallops present (Cardio), No murmurs present (Cardio), No rub (Cardio) and Peripheral pulses 2+ throughout RATE: regular rate RHYTHM: regular rhythm HEART SOUNDS: S1 normal heart sound present and S2 normal heart sound present PERIPHERAL PULSES: Peripheral pulses 2+ throughout GI COMMON NORMALS: Normal to inspection, nondistended, normoactive bowel sounds present, Soft to palpation, non-tender, No hepatosplenomegaly present and no masses AUSCULTATION: Yes normoactive bowel sounds PALPATION: Yes Soft to palpation and Yes No hepatosplenomegaly present RECTAL EXAM: deferred Extremity COMMON NORMALS: no clubbing, cyanosis or edema and no pedal edema Urinary Catheter Management^: [place]: Cath Placed During This Visit: yes Reason for Continuing Indwelling Catheter: Accurate Measurement of Urinary Output in Critically Ill Patients Urinary Catheter Date of Insertion: 03/29/20 Urinary Catheter Time of Insertion: 12:35 TS Data Data Completed and Pending: Completed Studies During Hospitalization Category Date Time Status CT angio chest PE protcl [id number] Stat Cat Scan 03/23/20 11:47 Completed XR chest 1V birgit ble [id number] ONCE Exams 04/10/20 09:14 Completed XR chest 1V birgit ble 12516 Q48H Exams 04/06/20 06:00 Completed XR chest 1V birgit ble 83530 Q48H Exams 04/08/20 06:00 Completed XR chest 1V birgit ble 30074 Q48H Exams 04/10/20 06:00 Completed XR chest 1V birgit ble 03569 Q48H Exams 04/11/20 06:00 Completed XR chest 1V birgit ble 40766 Routine Exams 03/26/20 07:00 Completed XR chest 1V birgit ble 55915 Routine Exams 03/27/20 07:00 Completed XR chest 1V birgit ble 35990 Routine Exams 03/28/20 07:00 Completed XR chest 1V birgit ble 44629 Routine Exams 03/31/20 09:52 Completed XR chest 1V birgit ble 76977 Routine Exams 04/01/20 13:00 Completed XR chest 1V birgit ble 94070 Routine Exams 04/01/20 17:10 Completed XR chest 1V birgit ble 66935 Routine Exams 04/03/20 06:00 Completed XR chest 1V birgit ble 44918 Routine Exams 04/12/20 06:00 Completed XR chest 1V birgit ble 45139 Stat Exams 03/23/20 09:49 Completed XR chest 1V birgit ble 57296 Stat Exams 04/09/20 00:56 Completed CV echo complete* [id number] Routine Ultrasound 03/28/20 07:00 [place] [id number] Routin e Ultrasound 04/12/20 07:00 Completed Pending at discharge Category Date Time Status XR chest 1V birgit ble 96663 Q48H Exams 04/13/20 06:00 Ordered Blood Culture Sta t Lab 04/11/20 13:30 Results Clostridioides Di fficile PCR Routin e Lab 04/08/20 15:30 Results Enteric Parasite Panel by PCR Routi ne Lab 04/08/20 15:30 Results Immunochemical Fe yahir OCB Routine Lab 04/08/20 15:30 Results Immunochemical Fe yahir OCB Routine Lab 04/12/20 14:27 Uncollected Lactoferrin Routi ne Lab 04/08/20 15:30 Results Miscellaneous Carmencita t Routine Lab 04/08/20 15:30 Received Sputum Culture Ro utine Lab 04/11/20 19:25 Uncollected Sputum Culture an d Gram Stain Routi ne Lab 04/11/20 19:23 Uncollected Sputum Culture an d Gram Stain Stat Lab 04/11/20 10:31 Uncollected Urine Culture Rou diamond Lab 04/11/20 14:10 Received Labs from last 24 hours 04/12/20 04/12/20 04/12/20 17:08 16:05 11:06 WBC RBC Hgb Hct MCV MCH MCHC RDW Plt Count MPV Lymph % (Auto) [place] % (Auto) Lymph # (Auto) [place] # (Auto) Total Counted Atypical Lymphs % Absolute Neutrophi ls Segmented Neutroph ils Abs Segm Neuts (Ma n) Band Neutrophils Abs Band Neuts (Ma n) Lymphocytes (Manua l) Monocytes (Manual) Absolute Monocytes Eosinophils (Manua l) Absolute Eosinophi ls Basophils (Manual) Absolute Basophils Platelet Estimate Polychromasia Hypochromasia Anisocytosis Macrocytosis Specimen Type Sample Site ABG pH ABG pCO2 ABG pO2 ABG HCO3 ABG Base Excess Damien Test Hematocrit O2 Delivery Device FiO2 PEEP Senior Network Administrator ID Sodium 131 L Potassium 4.1 Chloride 93 L Carbon Dioxide 30 H Anion Gap 12.1 BUN 17 Creatinine 0.5 GFR Calculation Not Reportable Glucose 154 H POC Glucose 144 H 244 H Calculated Osmolal ity 277 L Calcium 8.2 L Magnesium Total Bilirubin AST ALT Alkaline Phosphata se C-Reactive Protein Total Protein Albumin Globulin 04/12/20 04/12/20 04/12/20 05:33 03:40 03:40 WBC 8.9 RBC 2.54 L Hgb 8.7 L Hct 26.3 L MCV 103.5 H MCH 34.3 H MCHC 33.1 RDW 13.4 Plt Count 203 MPV 10.2 Lymph % (Auto) Not Reportable [place] % (Auto) Not Reportable Lymph # (Auto) Not Reportable [place] # (Auto) Not Reportable Total Counted 100 Atypical Lymphs % 0.0 Absolute Neutrophi ls 8.2 H Segmented Neutroph ils 92 Abs Segm Neuts (Ma n) 8.2 H Band Neutrophils 0.0 Abs Band Neuts (Ma n) 0.0 Lymphocytes (Manua l) 7 Monocytes (Manual) 1.0 Absolute Monocytes 0.1 Eosinophils (Manua l) 0 Absolute Eosinophi ls 0.0 Basophils (Manual) 0.0 Absolute Basophils 0.0 Platelet Estimate Normal Polychromasia Trace Hypochromasia Trace Anisocytosis 1+ H Macrocytosis 1+ H Specimen Type Sample Site ABG pH ABG pCO2 ABG pO2 ABG HCO3 ABG Base Excess Damien Test Hematocrit O2 Delivery Device FiO2 PEEP Senior Network Administrator ID Sodium 134 L Potassium 4.2 Chloride 96 L Carbon Dioxide 29 Anion Gap 13.2 BUN 15 Creatinine 0.5 GFR Calculation Not Reportable Glucose 191 H POC Glucose 179 H Calculated Osmolal ity 284 L Calcium 7.9 L Magnesium 1.9 Total Bilirubin 0.2 AST 21 ALT 21 Alkaline Phosphata se 164 H C-Reactive Protein 323.4 H Total Protein 5.8 L Albumin 2.2 L Globulin 3.6 04/12/20 04/12/20 04/11/20 03:30 00:28 20:00 WBC RBC Hgb Hct MCV MCH MCHC RDW Plt Count MPV Lymph % (Auto) [place] % (Auto) Lymph # (Auto) [place] # (Auto) Total Counted Atypical Lymphs % Absolute Neutrophi ls Segmented Neutroph ils Abs Segm Neuts (Ma n) Band Neutrophils Abs Band Neuts (Ma n) Lymphocytes (Manua l) Monocytes (Manual) Absolute Monocytes Eosinophils (Manua l) Absolute Eosinophi ls Basophils (Manual) Absolute Basophils Platelet Estimate Polychromasia Hypochromasia Anisocytosis Macrocytosis Specimen Type Arterial Arterial Sample Site Art line Art line ABG pH 7.41 7.35 ABG pCO2 48.9 H 55.1 H ABG pO2 58.0 L 57.8 L ABG HCO3 31.1 H 30.6 H ABG Base Excess 5.7 H 4.2 H Damien Test N/a N/a Hematocrit 28.7 L 28.5 L O2 Delivery Device Vent Vent FiO2 85.0 75.0 PEEP 8.0 8.0 Senior Network Administrator ID Harkr Harkr Sodium Potassium Chloride Carbon Dioxide Anion Gap BUN Creatinine GFR Calculation Glucose POC Glucose 146 H Calculated Osmolal ity Calcium Magnesium Total Bilirubin AST ALT Alkaline Phosphata se C-Reactive Protein Total Protein Albumin Globulin 04/11/20 18:50 WBC RBC Hgb Hct MCV MCH MCHC RDW Plt Count MPV Lymph % (Auto) [place] % (Auto) Lymph # (Auto) [place] # (Auto) Total Counted Atypical Lymphs % Absolute Neutrophi ls Segmented Neutroph ils Abs Segm Neuts (Ma n) Band Neutrophils Abs Band Neuts (Ma n) Lymphocytes (Manua l) Monocytes (Manual) Absolute Monocytes Eosinophils (Manua l) Absolute Eosinophi ls Basophils (Manual) Absolute Basophils Platelet Estimate Polychromasia Hypochromasia Anisocytosis Macrocytosis Specimen Type Sample Site ABG pH ABG pCO2 ABG pO2 ABG HCO3 ABG Base Excess Damien Test Hematocrit O2 Delivery Device FiO2 PEEP Senior Network Administrator ID Sodium Potassium Chloride Carbon Dioxide Anion Gap BUN Creatinine GFR Calculation Glucose POC Glucose 185 H Calculated Osmolal ity Calcium Magnesium Total Bilirubin AST ALT Alkaline Phosphata se C-Reactive Protein Total Protein Albumin Globulin Vitals: Last Vital Signs Temp 97.6 F 04/12/20 15:00 Pulse 82 04/12/20 16:00 Resp 26 H 04/12/20 18:04 BP 112/51 04/12/20 16:00 Pulse Ox 92 04/12/20 16:00 TS Medications Medications Home Medications metoprolol succinate 50 mg tablet,extended release 24 hr 50 mg PO DAILY@03/18/20 [History Confirmed 03/23/20] celecoxib 100 mg PO BID@03/23/20 [History Confirmed 03/23/20] dexamethasone 6 mg PO DAILY@07 03/23/20 [History Confirmed 03/23/20] doxycycline hyclate 100 mg PO BID@03/23/20 [History Confirmed 03/23/20] prednisone 20 mg PO BID@03/23/20 [History Confirmed 03/23/20] Active Medications Acetaminophen (Acetaminophen 650 Mg/20.3 Ml Udc) 650 mg PO Q6H PRN PRN Reason: MILD PAIN OR INCREASE TEMP Albuterol/Ipratropium (Ipratropium-Albuterol 3 Ml Neb) 3 ml INHALATION Q4H.RESPIRATORY NGOC Last Admin: 04/12/20 15:36 Dose: 3 ml Documented by: Budesonide (Budesonide 0.5 Mg/2 Ml Neb) 0.5 mg INHALATION BID.RESPIRATORY NGOC Last Admin: 04/12/20 08:14 Dose: 0.5 mg Documented by: Dexamethasone (Dexamethasone 4 Mg/Ml Inj) 6 mg IV DAILY NGOC Last Admin: 04/12/20 09:11 Dose: 6 mg Documented by: Dextrose (Dextrose 50% Syringe 50 Ml) 25 ml IVP ONCE PRN; Protocol PRN Reason: hypoglycemia protocol Dextrose (Dextrose 50% Syringe 50 Ml) 50 ml IVP PRN PRN; Protocol PRN Reason: hypoglycemia protocol Enoxaparin Sodium (Enoxaparin 100 Mg/Ml Syringe) 90 mg 1 mg/kg (90 mg) SUBCUT Q12H NGOC Stop: 04/13/20 09:05 Last Admin: 04/12/20 09:11 Dose: 90 mg Documented by: Furosemide (Furosemide 10 Mg/Ml Sdv 4ml) 40 mg IVP Q12H NGOC Last Admin: 04/12/20 07:59 Dose: Not Given Documented by: Glucagon (Glucagon 1 Mg/Ml Inj 1 Ml) 1 mg IM ONCE PRN; Protocol PRN Reason: Adult Acute Hypoglycemia Prot. Dexmedetomidine HCl 400 mcg/ (Sodium Chloride) 104 mls @ 0 mls/hr IV .Q0M NGOC; Protocol Last Admin: 04/12/20 15:21 Dose: 0.7 mcg/kg/hr, 16.3 mls/hr Documented by: Propofol (Diprivan) 1,000 mg in 100 mls @ 0 mls/hr IV .Q0M NGOC; Protocol Last Admin: 04/12/20 16:32 Dose: 50 mcg/kg/min, 26.9 mls/hr Documented by: Norepinephrine Bitartrate 4 mg (/ Dextrose) 254 mls @ 0 mls/hr IV .Q0M NGOC; Protocol Last Titration: 04/12/20 16:58 Dose: 4 mcg/min, 15.2 mls/hr Documented by: Fentanyl 1,000 mcg/ Sodium (Chloride) 100 mls @ 0 mls/hr IV .Q0M NGOC; Protocol Last Titration: 04/12/20 12:02 Dose: 100 mcg/hr, 10 mls/hr Documented by: Imipenem/Cilastatin Sodium 500 (mg/ Sodium Chloride) 100 mls @ 200 mls/hr IV Q6H NGOC; Protocol Last Admin: 04/12/20 16:32 Dose: 200 mls/hr Documented by: Linezolid (Zyvox Premix) 600 mg in 300 mls @ 300 mls/hr IV Q12H NGOC; Protocol Last Admin: 04/12/20 09:36 Dose: 300 mls/hr Documented by: Levofloxacin/Dextrose (Levaquin-D5w) 750 mg in 150 mls @ 100 mls/hr IV Q24H NGOC; Protocol Remdesivir 100 mg/ Sodium (Chloride) 100 mls @ 100 mls/hr IV Q24H NGOC Stop: 04/15/20 22:59 Last Admin: 04/11/20 22:06 Dose: 100 mls/hr Documented by: Cisatracurium Besylate 100 mg/ (Sodium Chloride) 100 mls @ 1.624 mls/hr IV CONT NGOC; Protocol Last Titration: 04/12/20 17:41 Dose: 0 mcg/kg/min, 0 mls/hr Documented by: Insulin Aspart (Insulin Aspart 100 Unit/1 Ml) 0 unit SUBCUT Q6H NGOC; Protocol Last Admin: 04/12/20 17:36 Dose: 1 unit Documented by: Lactulose (Lactulose Oral Liq 20 Gm/30 Ml Udc) 30 gm PO Q6H PRN PRN Reason: constipation Zinc Gluconate (Zinc Gluconate 50 Mg Tablet) 50 mg PO DAILY [facility] Last Admin: 04/12/20 09:12 Dose: Not Given Documented by: Discharge Plan Discharge Patient Disposition: Home Condition: Stable Prescriptions: Discontinued metoprolol succinate [Toprol XL] 50 mg tablet extended release 24 hr 50 mg PO DAILY@ RF: 0 doxycycline hyclate 100 mg capsule 100 mg PO BID@ RF: 0 prednisone 20 mg tablet 20 mg PO BID@ RF: 0 celecoxib 100 mg capsule 100 mg PO BID@ RF: 0 dexamethasone 6 mg tablet 6 mg PO DAILY@ RF: 0 Discharge Orders: Discharge Order (Routine); Ordered 04/12/20 Ordered By: Jonathan Rios Referrals: Clare Arnett MD [Primary Care Provider] - Discharge Diet: Low Salt Transfer Attestations Time Spent in Transfer Care*: greater than 30 min Specific Discharge Activities: Specific discharge activities: educating and/or supporting family/caregiver, discussing with caser in/social workers/dc planners, documenting/other paperwork and evaluating patient/reviewing data Quality Metrics Clinical Quality Measures: During this hospital stay, did patient experience: None Coding Level of Care Code Acute Wheel Grinder for [facility] Fwd Diagnoses ARDS (adult respiratory distress syndrome) J80 Septic shock A41.9; R65.21 Secondary bacterial pneumonia J15.9 COVID-19 U07.1 Sepsis due to severe acute respiratory syndrome coronavirus 2 (SARS-CoV-2) U07.1; A41.89
[2020-04-12] MEDS: levofloxacin-dextrose 5 % 750 MG/150 ML PREMIX 100 MG IV (18:43)
[2020-04-12] MEDS: FUROsemide 10 mg/mL SDV 4mL 40 MG IVP (20:52)
[2020-04-12] MEDS: remdesivir 100 MG in sodium chloride 0.9% (100 ml) 100 ML IV (21:00)
--- NOTE | 2020-04-12 22:23 | PC.NURSE ---
New Order: Patient found to be breathing over ventilator and appears to be anxious while over working vent. Bryce ALMENDAREZ [employer] operations manager phoned to update on patient status. Versed titratable drip to be initiated at 7, while pausing the precedex drip going forth. RN clarified initiation drip rate, with second RN Marce to verify MD orders.
--- NOTE | 2020-04-12 23:37 | XR_ITS ---
WS: [id number] Portable AP semiupright chest, 04/12/2020, 2353 hours Clinical Data: central line placement Comparison: Portable chest, 04/12/2020, 1422 hours Findings: The right internal jugular venous catheter ends near the cavoatrial junction. The endotrach eal tube and nasogastric tube remain in same position. The bilateral diffuse pulmonary opacities agai n are unchanged. There are monitor leads on the chest wall. The heart is normal in size. The patient has had an anterior cervical disc fusion. XR/XR chest 1V portable [id number] Impression: 1. Right internal jugular venous catheter, endotracheal tube and nasogastric tu be are in good position. 2. No change in diffuse pulmonary opacities.
[2020-04-13] VITALS: BP 117/69; PULSE 87; O2SAT 88
--- NOTE | 2020-04-13 00:13 | PM.ACPR ---
Procedure/Consent Time out: Time Out Performed: Yes Consent: Consent for Procedure: Emergency procedure Procedure Narrative: Central line placement Previous central line got displaced during transportation I was called at the bedside on stat basis for placement of central line before her transportation Patient was prepped and draped with sterile dressing in Trendelenburg, ultrasound guided right internal jugular vein access was obtained using Seldinger technique, access obtained on first attempt, good venous return was observed from all 3 ports, postprocedure chest x-ray revealed satisfactory placement of right internal jugular central line, no pneumothorax or postprocedural complication, estimated blood loss 1 to 2 mL Post procedure blood pressure 128/53mmhg, patient intubated and sedated, telemetry did not show any change in sinus rhythm throughout placement of central line Acute Procedures Epistaxis Control: Time out performed: Yes
--- NOTE | 2020-04-13 01:43 | PC.NURSE ---
ASSUMING CARE Patient on mechanical ventilation, PC-AC mode, FiO2 at 75 %, PEEP at 8, and Rate of 26. Patient has 8.0 tube and 24 centimeters at the lips. Patient has levophed running at 4 mcg/min, propofol at 50 mcg/kg/min, fentanyl at 100 mcg/hour, and precedex at 0.7 mcg/kg/hour. All medications running through right internal jugular central line, blood return obtained and lumens flush appropriately. Day shift RN, Lizeth, reports nimbex has been shut off at 1730. BIS monitor still on patients forehead with a reading of mid 40s to low 50s. Patient is spontaneously opening eyes, but does not move extremities or follow commands. Patients pupils sluggishly responsive to light with minimal scleral edema.
--- NOTE | 2020-04-13 02:05 | PC.NURSE ---
VERSED INITIATED Patient is spontaneously opening eyes and oxygen saturation has decreased to low 80s. Dr. Wu notified by another RN, Bere, to notify of need for sedation. Dr. Wu gave order for versed drip to start at 7 mg/hour. Since starting rate of 1 mg and max of 4 mg/hour, dose clarified and okayed by physician. Versed drip initiated at 7 mg/hour and precedex gtt discontinued. Patients oxygen increased to 93% approximately 5 minutes after versed drip initiated.
--- NOTE | 2020-04-13 03:00 | PC.NURSE ---
[place] TO [facility] Air evac dispatch called for patient transfer by air since patient condition too unstable for ground transfer. Air evac accepted transfer and states team from [place], [place] should be arriving in approximately 26 minutes.
--- NOTE | 2020-04-13 03:03 | PC.NURSE ---
AIR EVAC TEAM Air evac team arrives to floor to prepare for transport at 2226. Team members got patient transferred to their ventilator and IV tubing to their pumps. Transferring RN, Marce, standing at foot of bed observing transfer of lines and tubes by flight team. RN observes patients right neck bleeding and central venous catheter laying across patients chest at 1127. Site quickly covered with guaze by flight RN and catheter tip noted to be intact. Dr. Wu notified and reported to place another emergent central venous line as patient had many life sustaining medications through 20 guage peripheral line in left arm. Dr. Wu put in additional right internal jugular via ultrasound machine and sterile technique, procedure completed at 0017. Xray there to verify placement prior to air transfer. Dr. Wu assessed chest xray and states CVL in correct place and to go ahead with use for medications. Medications switched back over to central line. Patients vital signs stable during procedure and after misplacement. Site assessed by RN after catheter pulled out and no subq emphysema or swelling observed or palpated prior to second insertion. Site reassessed prior to air transfer and no abnormalities or concerns noted. Patient left facility at 0042, fentanyl drip at 100 mcg/hour, versed at 7 mg/hour, propofol at 50 mcg/kg/min, and levophed titrated up to 6 mcg/min by flight RN. Additional report called to Fran at [facility] to alert her of situation and patient leaving transferring facility.
[2020-04-13 03:55] VITALS: BP 106/72; PULSE 87; RESP 31; TEMP 36.8; O2SAT 90
== END 2020-04-13 00:42 | disposition short-term general hospital (02) | DRG 207 ==
LOC: ER 12:41 → MEDSURG 17:24 → ICU 03-27 23:33 → MS 2A 04-10 08:06
PROVIDERS: Internal Medicine; Internal Medicine Critical Care Medicine; Student in an Organized Health Care Education/Training Program; Admitting Provider Family Medicine; Emergency Provider Family Medicine; PCP Family Medicine; Visit Provider Internal Medicine
DX: U07.1 COVID-19 (principal); A41.89 Other specified sepsis; J12.82 Pneumonia due to coronavirus disease 2019; J80 Acute respiratory distress syndrome; R65.21 Severe sepsis with septic shock; J15.8 Pneumonia due to other specified bacteria; J96.01 Acute respiratory failure with hypoxia; I10 Essential (primary) hypertension; Z96.652 Presence of left artificial knee joint; D75.89 Other specified diseases of blood and blood-forming organs; I95.9 Hypotension, unspecified; B97.29 Other coronavirus as the cause of diseases classified elsewhere
CPT/HCPCS: 12345; 36415; 36416; 36430; 36592; 36600; 51702; 71045; 71275; 80048; 80051; 80053; 80069; 80202; 80500; 82274; 82330; 82550; 82607; 82728; 82746; 82803; 82805; 82962; 83540; 83550; 83605; 83615; 83630; 83735; 83880; 84100; 84145; 84439; 84443; 84481; 85007; 85025; 85378; 85384; 85610; 86140; 86403; 86900; 86927; 87040; 87046; 87070; 87077; 87081; 87086; 87186; 87205; 87449; 87493; 87506; 93005; 93306; 93970; 94002; 94003; 94640; 94660; 94762; 94799; 96372; 97110; 97161; 99281; 99282; 99283; A4570; G0378; J0330; J0456; J0743; J1100; J1200; J1650; J1815; J1940; J1956; J2020; J2060; J2250; J2543; J2704; J2930; J3010; J3370; J3480; J3490; J3535; J7030; J7040; J7050; J7626; P9017; P9047; Q9967

== ENCOUNTER 2020-06-29 13:34 | Outpatient (CLI) | payer OTHER, SELFPAY ==
[2020-06-29 13:51] LABS: Basophils # 0.1 10^3/uL (0.0-0.1); Basophils % 0.4 %; Eosinophils % 0.2 %; Hematocrit 39.2 % (37.0-47.0); Hemoglobin 12.6 g/dL (11.5-15.3); Lymphocytes # 2.2 10^3/uL (0.8-4.8); Lymphocytes % 19.4 %; Mean Corpuscular HGB Conc 32.1 g/dL (30.0-36.0); Mean Corpuscular Volume 105.7 fL (81-99); Mean Platelet Volume 10.9 fL (7.4-10.4); Monocytes # 0.4 10^3/uL (0.2-0.9); Monocytes % 3.3 %; Neutrophils # 8.81 10^3/uL (1.8-7.7); Neutrophils % 76.3 %; Nucleated Red Blood Cells % 0 %; Platelet Count 289 10^3/cmm (130-400); Red Blood Count 3.71 10^6/uL (4.1-5.3); White Blood Count 11.6 10^3/uL (4.0-10.0)
[2020-06-29 14:16] LABS: Blood Urea Nitrogen 22 mg/dL (8-23); Calcium 9.1 mg/dL (8.5-10.5); Carbon Dioxide 26 mmol/L (22-29); Chloride 102 mmol/L (98-107); Glucose 118 mg/dL (65-115); Osmolality Calculated 290 mOsm/kg (285-295); Sodium 138 mmol/L (136-145)
[2020-06-29 14:17] LABS: Anion Gap 14.6 (5-19); Potassium 4.6 mmol/L (3.5-5.1)
== END 2020-06-29 13:35 | disposition home or self-care (01) ==
LOC: LAB 13:39
PROVIDERS: PCP Family Medicine; Visit Provider Family Medicine
DX: C13.1 Malignant neoplasm of aryepiglottic fold, hypopharyngeal aspect (principal)
CPT/HCPCS: 80048; 85025

== ENCOUNTER 2020-10-18 12:44 | Outpatient (CLI) | payer MEDICARE, OTHER, SELFPAY ==
--- NOTE | 2020-10-18 12:56 | XR_ITS ---
WS: [id number] XR chest 2V* [id number] REASON FOR EXAM: rule out pneumonia FINDINGS: The thoracic aorta is tortuous and ectatic. Heart size is normal. There are linear interstitial changes in both lower lung brand. These may be chronic however essenti ally all of the patient's prior chest films were during the current course of Covid pneumonia from [facility] 14 April 2020. Thoracolumbar scoliosis convex right. XR/XR chest 2V* [id number] IMPRESSION: Interstitial changes in the lower lungs which are most likely chronic. Consider ing past and current history would recommend follow-up chest x-ray and 48 hours unless not clinically warranted.
== END 2020-10-18 12:45 | disposition home or self-care (01) ==
LOC: RAD 12:49
PROVIDERS: PCP Family Medicine; Visit Provider Internal Medicine Pulmonary Disease
DX: J22 Unspecified acute lower respiratory infection (principal); Z86.16 Personal history of COVID-19
CPT/HCPCS: 71046

== ENCOUNTER → 2020-11-01 08:50 | Outpatient (BNVA) | payer MEDICARE, OTHER, SELFPAY | PROVIDERS: PCP Family Medicine; Visit Provider Internal Medicine Pulmonary Disease | DX: Z01.818 Encounter for other preprocedural examination (principal); Z20.822 Contact with and (suspected) exposure to COVID-19 | CPT/HCPCS: 87635 ==

== ENCOUNTER 2020-11-07 08:40 | Outpatient (CLI) | payer MEDICARE, OTHER, SELFPAY ==
--- NOTE | 2020-11-07 08:50 | CT_ITS ---
WS: [id number] CT CHEST WITHOUT INTRAVENOUS CONTRAST HISTORY: RESOLUTION ON COVID RELATED INTERSTITIAL CHANGES TECHNIQUE: Contiguous 5 mm axial imaging performed on the thorax. Coronal and sagittal reformats are submitted. All CT scans at [facility] use at least one of these dose optimization techniq ues: automated exposure control; mA and/or kV adjustment per patient size (includes targeted exams wh ere dose is matched to clinical indication); or iterative reconstruction. CONTRAST: None DLP: 576.77 mGy.cm COMPARISON: 03/23/2020 Lungs and central airway: Lung volumes are similar to the prior study. The areas of denser consolidat ion bilaterally has improved. There is still persistent groundglass attenuation and thickening of the peripheral lungs and interstitial thickening. Developing bronchiectasis in the upper and lower lobes bilaterally. This is only minimal bronchiectasis. This bronchiectasis may have been present on the p rior examination also but better seen today. No mass. Pleura: Normal. No pleural effusion. Heart and pericardium: Normal size heart. No effusion. Mediastinum and belen: No mediastinum or hilar adenopathy. Vessels: Pulmonary artery size is equal to the aorta. Normal-sized thoracic aorta. Chest wall and lower neck: No soft tissue masses. Upper abdomen: LEFT hepatic cyst measures 1.3 cm. New area of soft tissue thickening involving the sp lenic flexure. There is wall thickening and a small amount of pericolonic stranding. This was not pre sent on the prior study of 03/23/2020. There are a few adjacent diverticula. Osseous structures: No destructive process. CT/CT chest wo con [id number] IMPRESSION: 1. Resolution of the more solid pulmonary opacifications 03/23/2020. 2. Persistent interstitial thickening in the periphery of the lungs and mild g roundglass attenuation. 3. Mild bilateral upper and lower lobe bronchiectasis. 4. No dense consolidation or pneumonia. 5. New mucosal thickening at the splenic flexure with associated diverticula. May be an area of acute diverticulitis. Colonic neoplasm is not excluded. Recom mend further evaluation by colonoscopy or short-term CT follow-up after treatme nt for diverticulitis. 6. Hepatic cyst LEFT lobe.
--- NOTE | 2020-11-07 10:03 | PFTS_ITS ---
Date of Study:11/07/20 Date of Dictation: 11/16/2020 MECHANICS: Prebronchodilator forced vital capacity (FVC) is normal. Bronchodilator forced expiratory volume in one second (FEV1) is normal. FEV1/FVC is normal. Postbronchodilator study not performed FLOW VOLUME LOOP: normal. . LUNG VOLUMES: Total lung capacity (TLC) is reduced. Residual volume (RV) is moderately reduced 51%. DIFFUSING CAPACITY FOR CARBON MONOXIDE: Moderately reduced 59 . INTERPRETATION: The spirometry is normal. Reduced lung volumes suggestive of moderate restriction. There is moderate gas transfer defect. Clinical correlation recommended MTDD
== END 2020-11-07 08:41 | disposition home or self-care (01) ==
LOC: RT 08:44
PROVIDERS: PCP Family Medicine; Visit Provider Internal Medicine Pulmonary Disease
DX: J98.4 Other disorders of lung (principal); J22 Unspecified acute lower respiratory infection; B94.8 Sequelae of other specified infectious and parasitic diseases; K76.89 Other specified diseases of liver; J47.9 Bronchiectasis, uncomplicated
CPT/HCPCS: 71250; 94010; 94618; 94726; 94729

== ENCOUNTER 2021-02-10 00:48 | Emergency (ER) | payer MEDICARE, OTHER, SELFPAY ==
[2021-02-10] VITALS (13 sets, daily range): BP systolic 98–134; BP diastolic 55–64; PULSE 75–94; RESP 16; TEMP 36.8; O2SAT 89–96; BMI 26.1
--- NOTE | 2021-02-10 01:10 | ED_ITS ---
HPI - Allergic Reaction General: Chief complaint: Allergic Reaction Stated complaint: red bumps on body, Itching Time Seen by Provider: 02/10/21 01:10 History of Present Illness: HPI narrative: 75-year-old female comes in today with complaints of hives for the last month. Patient reports that the hives wax and wane for the last 30 days. Patient reports that she notices them be worse at night. Patient denies any difficulty breathing or shortness of breath. Patient appears well. Patient appears no acute distress. Patient denies any fever, unhealing sores or lesions, or changes in detergents or medications. Review of Systems General: Reports: 10 or more systems reviewed and unremarkable except in HPI and below Skin/Breast: Reports: rash and other PFSH ED PFSH: Medical History Hypertension Post-COVID syndrome Surgical History History of left knee replacement Family History Father CAD (coronary artery disease) Mother CAD (coronary artery disease) Social History Smoking and tobacco status: never smoked Alcohol intake: never Physical Exam Const: COMMON NORMALS: no acute distress and patient oriented x3 GENERAL APPEARANCE: cooperative HENMT: COMMON NORMALS: normocephalic, TM's normal bilaterally and Normal external nose present HEAD & SCALP: normal to inspection and normocephalic NOSE: Normal external nose present TYMPANIC MEMBRANE: TM's normal bilaterally MOUTH: Normal oral and palatal mucosa present THROAT: posterior oropharynx normal Eye: GENERAL EYE: appearance normal, both eyes and all related structures Neck/C-Spine: COMMON NORMALS: full ROM Lymph: LYMPHATIC: no lymphadenopathy noted Chest: COMMONS NORMALS: normal inspection of the chest Resp: COMMON NORMALS: normal respiratory effort EFFORT & INSPECTION: Yes able to speak in complete sentences Cardio: COMMON NORMALS: regular rate and regular rhythm RATE: regular rate RHYTHM: regular rhythm GI: COMMON NORMALS: non-tender Back/Pelvis: COMMON NORMALS: thoracic and lumbar spine normal to inspection Extremity: COMMON NORMALS: normal to inspection Neuro: COMMON NORMALS: patient oriented x3 and moves all extremities Psych: COMMON NORMALS: mental status grossly normal and cooperative Skin: NARRATIVE SKIN EXAM: Urticarial rash noted to patient's extremities and torso. Course Vital Signs: Vital signs: Vital Signs Temperature 98.2 F 02/10/21 00:59 Pulse Rate 75 02/10/21 00:59 Respiratory Rate 16 02/10/21 00:59 Blood Pressure 116/60 02/10/21 01:25 Pulse Oximetry 94 02/10/21 01:25 MDM - Allergic Reaction MDM Narrative: Medical decision making narrative: 75-year-old female comes in today for complaints of rash to the extremities and torso. Patient reports rash has been going on for about the last month and is worse in the nighttime. On exam respirations are even lungs are clear to auscultation. Patient has areas of urticaria to the extremities and torso. Mucous membranes are normal. Posterior pharynx is symmetrical. No excessive swelling is noted. Differential diagnosis includes allergic reaction, urticaria, anxiety. Reviewed exam with patient with recommendations for treatment with Claritin and Zyrtec. Recommended using loratadine in the morning and Zyrtec in the evening. Will place her on some prednisone 20 mg daily for the next 7 days. Patient was given 1 dose of cetirizine and 10 mg of dexamethasone in the emergency room. Patient was recommended to follow-up with primary care in 3 days for recheck. Recommend return to the ER for worsening symptoms or new concerns. Reviewed patient with Dr. Manzano who agreed to plan. Discharge Plan Discharge Patient Disposition: Home Clinical Impression: Urticaria Condition: Stable Prescriptions: New loratadine 10 mg tablet 10 mg PO DAILY Qty: 14 RF: 0 cetirizine 10 mg tablet 10 mg PO DAILY Qty: 14 RF: 0 Continued prednisone 20 mg tablet 20 mg PO DAILY Qty: 7 RF: 0 No Action albuterol sulfate [Ventolin HFA] 90 mcg/actuation HFA aerosol inhaler 2 puff inhalation Q6H PRN (Reason: shortness of breath or wheezing) Qty: 8.5 RF: 3 levofloxacin 500 mg tablet 500 mg PO DAILY Qty: 7 RF: 0 celecoxib [Celebrex] 100 mg capsule 100 mg PO DAILY RF: 0 Eliquis 5 mg tablet 5 mg PO BID RF: 0 magnesium oxide 250 mg magnesium tablet 250 mg PO DAILY RF: 0 montelukast 10 mg tablet 10 mg PO DAILY RF: 0 tizanidine 4 mg tablet 4 mg PO Q8H PRNRF: 0 cholecalciferol (vitamin D3) 25 mcg (1,000 unit) tablet 25 mcg PO DAILY RF: 0 melatonin 3 mg capsule 3 mg PO DAILY RF: 0 potassium chloride 20 mEq tablet extended release 20 meq PO DAILY Qty: 30 RF: 3 metoprolol succinate 50 mg tablet extended release 24 hr 25 mg PO BID RF: 0 Discharge Orders: Discharge ED (Routine); Ordered 02/10/21 Ordered By: Vikash Rao Referrals: Clare Arnett MD [Primary Care Provider] - Discharge Diet: Usual diet Discharge Activity: Increase activity as tolerated Patient Instructions: Urticaria (ED), Opioid Safety Activity Restrictions/Additional Instructions: Home and rest. Take medications as directed. You will use loratadine 10 mg in the morning to help control hives. Use cetirizine 10 mg in the evening at bedtime for further relief of hives. Take prednisone 20 mg daily for the next 7 days. Drink plenty of water with medications. Follow-up with primary care for recheck in 3 days for further recommendations of treatment. They may want you to see an leather goods sales representative for further testing. Return to the ER for fever greater than 100.4, difficulty breathing, or new concerns. Coding Level of Care Code ED Patternator for David Hyde
[2021-02-10] MEDS: dexamethasone 10 mg/mL INJ IM (02:06)
[2021-02-10] MEDS: cetirizine 10 mg Tablet PO (02:07)
== END 2021-02-10 02:34 | disposition home or self-care (01) ==
PROVIDERS: Emergency Provider Nurse Practitioner Family; PCP Family Medicine
DX: L50.9 Urticaria, unspecified (principal); Z79.01 Long term (current) use of anticoagulants; I10 Essential (primary) hypertension
CPT/HCPCS: 96372; 99283; J1100

== ENCOUNTER → 2021-05-31 09:53 | Outpatient (BNVA) | payer MEDICARE, OTHER, SELFPAY | PROVIDERS: PCP Family Medicine; Visit Provider Internal Medicine Pulmonary Disease | DX: J22 Unspecified acute lower respiratory infection (principal); B94.8 Sequelae of other specified infectious and parasitic diseases; J47.9 Bronchiectasis, uncomplicated; R09.89 Other specified symptoms and signs involving the circulatory and respiratory systems | CPT/HCPCS: 87070; 87205; 99214 ==

== ENCOUNTER 2021-07-21 06:00 | Outpatient (RCR) | payer MEDICARE, OTHER, SELFPAY | END 2021-08-20 23:59 | disposition home or self-care (01) | LOC: PULRHB 06:00 | PROVIDERS: PCP Family Medicine; Visit Provider Internal Medicine Pulmonary Disease | DX: B94.8 Sequelae of other specified infectious and parasitic diseases (principal) | CPT/HCPCS: G0237; G0238; G0239 ==

== ENCOUNTER 2021-08-21 06:00 | Outpatient (RCR) | payer MEDICARE, OTHER, SELFPAY | END 2021-09-19 23:59 | disposition home or self-care (01) | LOC: PULRHB 06:00 | PROVIDERS: PCP Family Medicine; Visit Provider Internal Medicine Pulmonary Disease | DX: U09.9 Post COVID-19 condition, unspecified (principal) | CPT/HCPCS: G0237; G0238; G0239 ==

== ENCOUNTER → 2021-09-02 10:29 | Outpatient (BNVA) | payer MEDICARE, OTHER, SELFPAY | PROVIDERS: PCP Family Medicine; Visit Provider Internal Medicine Pulmonary Disease | DX: R06.02 Shortness of breath (principal); R09.89 Other specified symptoms and signs involving the circulatory and respiratory systems; B94.8 Sequelae of other specified infectious and parasitic diseases; J22 Unspecified acute lower respiratory infection; J47.9 Bronchiectasis, uncomplicated; I10 Essential (primary) hypertension; Z86.16 Personal history of COVID-19 | CPT/HCPCS: 71046; 87015; 87070; 87116; 87205; 87206; 87801; 99214 ==

== ENCOUNTER 2021-09-20 07:53 | Outpatient (RCR) | payer MEDICARE, OTHER, SELFPAY | END 2021-10-20 23:59 | disposition home or self-care (01) | LOC: PULRHB 07:53 | PROVIDERS: PCP Family Medicine; Visit Provider Internal Medicine Pulmonary Disease | DX: U09.9 Post COVID-19 condition, unspecified (principal) | CPT/HCPCS: G0239 ==

== ENCOUNTER → 2021-12-02 09:53 | Outpatient (BNVA) | payer MEDICARE, OTHER, SELFPAY | PROVIDERS: PCP Family Medicine; Visit Provider Internal Medicine Pulmonary Disease | DX: R06.02 Shortness of breath (principal); J47.9 Bronchiectasis, uncomplicated; U09.9 Post COVID-19 condition, unspecified | CPT/HCPCS: 87015; 87116; 87206; 87801; 99214 ==

== ENCOUNTER 2022-01-02 14:16 | Outpatient (CLI) | payer MEDICARE, OTHER, SELFPAY ==
--- NOTE | 2022-01-02 14:34 | XR_ITS ---
WS: [id number] DEXA (DUAL ENERGY X-RAY ABSORPTIOMETRY) Bone mineral density was performed using a [employer] machine. HISTORY: POSTMENOPAUSAL COMPARISON: 03/08/2018 Lumbar spine BMD (L1-L4): 1.390 g/cm2 T score: 1.7 Z score: 3.3 Total hip BMD: Left: 1.013 g/cm2. T score: 0.0 Z score: 1.6 Right: 1.046 g/cm2. T score: 0.3 Z score: 1.9 10 year probability of a major osteoporotic fracture is 9.0%. Compared to the prior study from 03/08/2018. Lumbar spine bone mineral density has decreased by 2.9%. Bilateral hips bone mineral density has decreased by 4.4%. XR/XR DEXA axial skeleton* 80099 IMPRESSION: NORMAL BONE MINERAL DENSITY based upon the WHO classification for females. Significant decrease in bone mineral density since the prior examination within the lumbar spine and hips.
== END 2022-01-02 14:17 | disposition home or self-care (01) ==
LOC: RAD 14:17
PROVIDERS: PCP Family Medicine; Visit Provider Family Medicine
DX: Z78.0 Asymptomatic menopausal state (principal)
CPT/HCPCS: 77080

== ENCOUNTER 2022-02-16 19:50 | Emergency (ER) | payer MEDICARE, OTHER, SELFPAY ==
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
[2022-02-16 19:54] VITALS: BP 133/72; PULSE 78; RESP 16; TEMP 36.8; O2SAT 94; BMI 26.5
--- NOTE | 2022-02-16 19:57 | ECG_ITS ---
[facility] Test Date: 2022-02-16 Pat Name: Estefania Jack Department: Room: Gender: Female Media Relations Intern: : 1945 Requested By: Thom Coffman Order Number: [id number] Umberto MD: Jaqueline Jo M.D. Measurements Intervals [place] Rate: 77 P: -21 MD: 179 QRS: 9 QRSD: 127 T: 19 QT: 380 QTc: 430 Interpretive Statements SINUS RHYTHM MODERATE INTRAVENTRICULAR CONDUCTION DELAY [110+ ms QRS DURATION] INTERPRETATION BASED ON A DEFAULT AGE OF 40 YEARS Compared to ECG 03/21/2020 23:39:19 Intraventricular conduction delay now present Electronically Signed On 02-17-2022 14:20:28 TUBE FILLER by Jaqueline Jo M.D. [id number]
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
[2022-02-16] MEDS: iohexol 350 mg/mL 500 mL Btl (per mL) IV (20:22)
[2022-02-16 20:34] LABS: Basophils # 0.1 10^3/uL (0.0-0.1); Basophils % 0.7 %; Eosinophils # 0.1 10^3/uL (0.0-0.8); Eosinophils % 1.3 %; Hematocrit 39.5 % (37.0-47.0); Hemoglobin 13.3 g/dL (11.5-15.3); Lymphocytes % 51.2 %; Mean Corpuscular HGB Conc 33.7 g/dL (30.0-36.0); Mean Corpuscular Hemoglobin 35.4 pg (28.0-34.0); Mean Corpuscular Volume 105.1 fl (81-99); Mean Platelet Volume 9.9 fL (7.4-10.4); Monocytes # 0.6 10^3/uL (0.2-0.9); Neutrophils # 3.95 10^3/uL (1.8-7.7); Neutrophils % 40.6 %; Nucleated Red Blood Cells % 0 %; Platelet Count 240 10^3/cmm (130-400); Red Blood Count 3.76 10^6/uL (4.1-5.3); Red Cell Distribution Width 12.1 % (12.1-15.1); White Blood Count 9.8 10^3/uL (4.0-10.0)
[2022-02-16 20:47] LABS: Troponin(5th) Baseline 12 ng/L (0-10)
[2022-02-16 20:58] LABS: Alanine Aminotransferase 17 U/L (0-33); Albumin Level 4.1 g/dL (3.5-5.2); Alkaline Phosphatase 123 U/L (35-105); Aspartate Amino Transferase 23 U/L (0-32); Blood Urea Nitrogen 35 mg/dL (8-23); Calcium 9.6 mg/dL (8.5-10.5); Carbon Dioxide 24 mmol/L (22-29); Chloride 107 mmol/L (98-107); Globulin 2.7 g/dL (1.3-4.6); Glucose 99 mg/dL (65-115); Osmolality Calculated 300 mOsm/kg (285-295); Sodium 141 mmol/L (136-145); Total Bilirubin 0.2 mg/dL (0.15-1.2); Total Protein 6.8 g/dL (6.6-8.7)
[2022-02-16 21:04] LABS: Anion Gap 14.3 (5-19); Potassium 4.3 mmol/L (3.5-5.1)
[2022-02-16 21:32] VITALS: BP 118/72; PULSE 69; RESP 16; O2SAT 96
--- NOTE | 2022-02-16 21:33 | ECG_ITS ---
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 Measurements Intervals [place] Rate: 66 P: 9 [place]: 223 QRS: 13 QRSD: 97 T: 15 QT: 388 QTc: 407 Interpretive Statements SINUS RHYTHM WITH FIRST DEGREE AV BLOCK LOW QRS VOLTAGE IN PRECORDIAL LEADS [QRS DEFLECTION < 1.0 mV IN CHEST LEADS] Compared to ECG 03/21/2020 23:39:19 First degree AV block now present Low QRS voltage now present Electronically Signed On 02-18-2022 0:09:42 BUSINESS TRANSFORMATION ANALYST by Jaqueline Jo M.D. [id number]
[2022-02-16 21:58] LABS: Troponin 5 2HR 16.01 ng/L (0-10)
[2022-02-16 22:01] LABS: Troponin 5 2HR Delta 4.01 ABS# (0-10)
[2022-02-16 22:33] VITALS: BP 129/77; PULSE 67; RESP 16; O2SAT 97
== END 2022-02-16 21:25 | disposition home or self-care (01) ==
PROVIDERS: Emergency Provider Emergency Medicine; PCP Family Medicine
DX: R07.9 Chest pain, unspecified (principal); V43.52XA Car driver injured in collision with other type car in traffic accident, initial encounter
CPT/HCPCS: 70450; 71260; 72125; 74177; 80053; 84484; 85025; 93005; 99285; Q9967

== ENCOUNTER 2022-05-14 06:00 | Outpatient (RCR) | payer MEDICARE, OTHER, SELFPAY | END 2022-05-20 23:59 | disposition home or self-care (01) | LOC: SPT 06:00 | PROVIDERS: PCP Family Medicine; Visit Provider Family Medicine | DX: N39.46 Mixed incontinence (principal) | CPT/HCPCS: 97110; 97161 ==

== ENCOUNTER 2022-05-21 06:00 | Outpatient (RCR) | payer MEDICARE, OTHER, SELFPAY | END 2022-06-20 23:59 | disposition home or self-care (01) | LOC: SPT 06:00 | PROVIDERS: PCP Family Medicine; Visit Provider Family Medicine | DX: R32 Unspecified urinary incontinence (principal) | CPT/HCPCS: 97110; 97530 ==

== ENCOUNTER 2022-06-21 06:00 | Outpatient (RCR) | payer MEDICARE, OTHER, SELFPAY | END 2022-07-20 23:59 | disposition home or self-care (01) | LOC: SPT 06:00 | PROVIDERS: PCP Family Medicine; Visit Provider Family Medicine | DX: R32 Unspecified urinary incontinence (principal) | CPT/HCPCS: 97530 ==

== ENCOUNTER 2022-07-16 07:10 | Outpatient (CLI) | payer MEDICARE, OTHER, SELFPAY ==
[2022-07-16 07:39] VITALS: BP 120/62; BP 120/74
== END 2022-07-16 07:11 | disposition home or self-care (01) ==
LOC: RT 07:12
PROVIDERS: PCP Family Medicine; Visit Provider Internal Medicine Pulmonary Disease
DX: U09.9 Post COVID-19 condition, unspecified (principal); R06.02 Shortness of breath; J47.9 Bronchiectasis, uncomplicated
CPT/HCPCS: 94010; 94618; 94726; 94729; 99214

== ENCOUNTER 2022-07-21 06:00 | Outpatient (RCR) | payer MEDICARE, OTHER, SELFPAY | END 2022-08-20 23:59 | disposition home or self-care (01) | LOC: SPT 06:00 | PROVIDERS: PCP Family Medicine; Visit Provider Family Medicine | DX: R32 Unspecified urinary incontinence (principal) | CPT/HCPCS: 97110 ==

== ENCOUNTER → 2022-08-12 08:54 | Outpatient (BNVA) | payer MEDICARE, OTHER, SELFPAY | PROVIDERS: PCP Family Medicine; Referring Provider Family Medicine; Visit Provider Nurse Practitioner Family | DX: L66.8 Other cicatricial alopecia (principal); L57.8 Other skin changes due to chronic exposure to nonionizing radiation; L82.1 Other seborrheic keratosis; Z80.8 Family history of malignant neoplasm of other organs or systems; Z71.89 Other specified counseling; S80.861A Insect bite (nonvenomous), right lower leg, initial encounter; W57.XXXA Bitten or stung by nonvenomous insect and other nonvenomous arthropods, initial encounter; L57.0 Actinic keratosis; L85.3 Xerosis cutis; D22.5 Melanocytic nevi of trunk; L81.4 Other melanin hyperpigmentation | CPT/HCPCS: 99204 ==

== ENCOUNTER 2022-08-21 06:00 | Outpatient (RCR) | payer MEDICARE, OTHER, SELFPAY | END 2022-09-19 23:59 | disposition home or self-care (01) | LOC: SPT 06:00 | PROVIDERS: PCP Family Medicine; Visit Provider Family Medicine | DX: R32 Unspecified urinary incontinence (principal) | CPT/HCPCS: 97530 ==

== ENCOUNTER → 2022-09-11 11:06 | Outpatient (BNVA) | payer MEDICARE, OTHER, SELFPAY | PROVIDERS: PCP Family Medicine; Visit Provider Nurse Practitioner Family | DX: L57.0 Actinic keratosis (principal); L57.8 Other skin changes due to chronic exposure to nonionizing radiation; L82.1 Other seborrheic keratosis; Z80.8 Family history of malignant neoplasm of other organs or systems; Z71.89 Other specified counseling; D22.5 Melanocytic nevi of trunk; L81.4 Other melanin hyperpigmentation; L85.3 Xerosis cutis | CPT/HCPCS: 17000; 17003; 99213 ==

== ENCOUNTER 2022-09-20 06:00 | Outpatient (RCR) | payer MEDICARE, OTHER, SELFPAY | END 2022-10-20 23:59 | disposition home or self-care (01) | LOC: SPT 06:00 | PROVIDERS: PCP Family Medicine; Visit Provider Family Medicine | DX: R32 Unspecified urinary incontinence (principal) | CPT/HCPCS: 97530 ==

== ENCOUNTER → 2022-10-02 11:47 | Outpatient (BNVA) | payer MEDICARE, OTHER, SELFPAY | PROVIDERS: PCP Family Medicine; Visit Provider Internal Medicine Pulmonary Disease | DX: J47.9 Bronchiectasis, uncomplicated (principal); U09.9 Post COVID-19 condition, unspecified | CPT/HCPCS: 99214 ==

== ENCOUNTER 2022-10-21 06:00 | Outpatient (RCR) | payer MEDICARE, OTHER, SELFPAY | END 2022-11-12 23:59 | disposition home or self-care (01) | LOC: SPT 06:00 | PROVIDERS: PCP Family Medicine; Visit Provider Family Medicine | DX: R32 Unspecified urinary incontinence (principal) | CPT/HCPCS: 97110; 97530 ==

== ENCOUNTER → 2023-01-29 09:30 | Outpatient (BNVA) | payer MEDICARE, OTHER, SELFPAY | PROVIDERS: PCP Family Medicine; Visit Provider Nurse Practitioner Family | DX: L66.8 Other cicatricial alopecia (principal); L57.0 Actinic keratosis; L57.8 Other skin changes due to chronic exposure to nonionizing radiation; L82.1 Other seborrheic keratosis; D22.5 Melanocytic nevi of trunk; L81.4 Other melanin hyperpigmentation; L85.3 Xerosis cutis | CPT/HCPCS: 17000; 99213 ==

== ENCOUNTER 2023-02-18 10:22 | Emergency (ER) | payer MEDICARE, OTHER, SELFPAY ==
[2023-02-18 10:32] VITALS: BP 127/69; PULSE 64; RESP 17; TEMP 36.4; O2SAT 98; BMI 30.3
--- NOTE | 2023-02-18 13:26 | CT_ITS ---
WS: [id number] CT ABDOMEN PELVIS TECHNIQUE: Noncontrast CT of the abdomen and pelvis with coronal and sagittal reformatted images. CLINICAL INFORMATION: abd pain, radiating rt inguinal COMPARISON: DLP: 657.[address] scans at [facility] use at least one of these dose optimization techniques: automated e xposure control; mA and/or kV adjustment per patient size (includes targeted exams where dose is matc hed to clinical indication); or iterative reconstruction. FINDINGS: Incidental hepatic cysts. Normal noncontrast gallbladder. No evidence of inguinal hernia or herniated bowel. Tiny fat-containing umbilical hernia. Adrenal glands are normal. Normal noncontrast pancreas. Normal GE junction. Bronchiectasis with interstitial thickening in the lung bases. Sigmoid diverticu losis. No evidence of acute diverticulitis. No evidence of high-grade small or large bowel obstructio n. Lumbar scoliosis. Advanced spondylitic changes lumbar spine. IMPRESSION: 1. No evidence of inguinal hernia or herniated bowel. 2. Tiny fat-containing umbilical hernia. 3. Normal appendix in the RIGHT lower quadrant. 4. Sigmoid diverticulosis. No evidence of acute diverticulitis. 5. No acute findings in the abdomen or pelvis. Notified MONA Cavazos at 02/18/2023 3:50 PM.
--- NOTE | 2023-02-18 13:29 | ED_ITS ---
HPI - Abdominal Pain 2 General: Chief Complaint: Abdominal Pain Stated Complaint: back pain Time Seen by Provider: 02/18/23 13:25 History of Present Illness: 77-year-old female comes in today with c omplaints of right lower abdominal, inguinal, and low back pain. Patient had symptoms for 2 to 3 weeks. Patient was seen by primary care and was awaiting a CT scan for further evaluation to rule out hernia. Patient appears nontoxic. Patient does appear in mild to moderate pain. Patient's pain is exacerbated with movement. Patient has a history of arthritis, left knee replacement, hypertension, seasonal allergies. Associated Symptoms: Reports constipation and diarrhea; Denies fever(s), nausea and vomiting Review of Systems 2 General: Reports: 10 or more systems reviewed and unremarkable except in HPI and below Const: Denies: fever(s) Card: Denies: chest pain Resp: Denies: dyspnea GI: Reports: diarrhea and constipation; Denies: nausea or vomiting : Denies: difficulty voiding Musc: Reports: back pain Skin/Breast: Denies: rash Neuro: Denies: headache(s) PFSH ED 2 PFSH: Medical History Hypertension Post-COVID syndrome Surgical History History of left knee replacement Family History Father CAD (coronary artery disease) Mother CAD (coronary artery disease) Social History Smoking and tobacco/nicotine status: never used tobacco/nicotine Alcohol intake: never Substance/Drug Use: never Physical Exam 2 Const: COMMON NORMALS: alert HENMT: COMMON NORMALS: normocephalic HEAD & SCALP: normocephalic MOUTH: Normal oral and palatal mucosa present Neck/C-Spine: COMMON NORMALS: full ROM Resp: COMMON NORMALS: normal respiratory effort and clear to auscultation bilaterally AUSCULTATION: clear to auscultation bilaterally Cardio: COMMON NORMALS: regular rate and regular rhythm RATE: regular rate RHYTHM: regular rhythm GI: COMMON NORMALS: Soft to palpation PALPATION: Yes Soft to palpation and Yes Tenderness to palpation present (GI) (Right lower quadrant) Details: RLQ Back/Pelvis: LUMBAR SPINE/LOWER BACK: Yes lumbar spinal tenderness Lumbar spinal tenderness location: L5 and Yes paraspinal muscle tenderness Lumbar paraspinal muscle tenderness: right Extremity: RIGHT LOWER EXTREMITY: Yes hip joint (Nontender to deep palpation) Neuro: SENSORIUM/ORIENTATION: Yes alert Skin: COMMON NORMALS: turgor normal GENERAL SKIN EXAM: turgor normal Course 2 Vital Signs: Vital signs: Vital Signs Temperature 97.5 F L 02/18/23 10:32 Pulse Rate 64 02/18/23 10:32 Respiratory Rate 17 02/18/23 10:32 Blood Pressure 127/69 02/18/23 10:32 Pulse Oximetry 98 02/18/23 10:32 Oxygen Delivery Me thod Room Air 02/18/23 10:32 MDM - Abdominal Pain Medical Decision Making 77-year-old female comes in today for complaints of right lower quadrant abdominal pain radiating into her inguinal area. On exam patient appears nontoxic. Abdomen soft with some tenderness in the right lower quadrant. Bowel sounds are present. No tenderness is noted of the inguinal hip or the lateral hip. Patient does have some tenderness along L5. Paraspinous muscle tenderness is noted on the right. Vital signs are normal. Differential diagnosis includes not limited to appendicitis, hernia, musculoskeletal pain, constipation, pelvic mass or carcinoma. CBC and CMP were unremarkable. CT showed no acute abnormalities or hernia. Patient does have some significant degenerative changes of the spine noted on the CT. Based on my clinical exam I think patient probably has some lumbar radicular pain. Recommended increasing activity as tolerated. Drink plenty water and fluids. Use acetaminophen and Celebrex as directed. Patient was written for 10 tablets of hydrocodone to use for severe pain. Patient reported understanding of care plan and need for follow-up with primary care for further evaluation and treatment. Lab Data 02/18/23 13:45 02/18/23 13:45 Labs/Radiology: Laboratory Results WBC 7.01 10^3/uL (3.29-11.43) 02/18/23 13:45 RBC 4.10 10^6/uL (3.85-5.65) 02/18/23 13:45 Hgb 14.40 g/dL (11.27-16.99) 02/18/23 13:45 Hct 42.6 % (36-47) 02/18/23 13:45 MCV 103.9 fl (85-98) H 02/18/23 13:45 MCH 35.1 pg (27-33) H 02/18/23 13:45 MCHC 33.8 g/dL (30-55) 02/18/23 13:45 RDW 12.2 % (12.1-15.1) 02/18/23 13:45 Plt Count 221 10^3/cmm (157-399) 02/18/23 13:45 MPV 10.3 fL (7.4-10.4) 02/18/23 13:45 Neut % (Auto) 45.8 % 02/18/23 13:45 Lymph % (Auto) 46.4 % 02/18/23 13:45 Wilson % (Auto) 5.7 % 02/18/23 13:45 Eos % (Auto) 1.1 % 02/18/23 13:45 Baso % (Auto) 0.7 % 02/18/23 13:45 Neut # (Auto) 3.21 10^3/uL (1.8-7.7) 02/18/23 13:45 Lymph # (Auto) 3.3 10^3/uL (0.8-4.8) 02/18/23 13:45 Wilson # (Auto) 0.4 10^3/uL (0.2-0.9) 02/18/23 13:45 Eos # (Auto) 0.1 10^3/uL (0.0-0.8) 02/18/23 13:45 Baso # (Auto) 0.1 10^3/uL (0.0-0.1) 02/18/23 13:45 Nucleated RBC % (auto) 0 % 02/18/23 13:45 Nucleated RBCs # 0.0 /100WBC 02/18/23 13:45 Sodium 140 mmol/L (136-145) 02/18/23 13:45 Potassium 4.4 mmol/L (3.5-5.1) 02/18/23 13:45 Chloride 105 mmol/L (98-107) 02/18/23 13:45 Carbon Dioxide 22 mmol/L (22-29) 02/18/23 13:45 Anion Gap 17.4 (5-19) 02/18/23 13:45 BUN 32 mg/dL (8-23) H 02/18/23 13:45 Creatinine 0.7 mg/dL (0.5-0.9) 02/18/23 13:45 GFR Calculation Not Reportable 02/18/23 13:45 Glucose 84 mg/dL (65-115) 02/18/23 13:45 Calculated Osmolality 296 mOsm/kg (285-295) H 02/18/23 13:45 Calcium 10.3 mg/dL (8.5-10.5) 02/18/23 13:45 Total Bilirubin 0.4 mg/dL (0.15-1.2) 02/18/23 13:45 AST 24 U/L (0-32) 02/18/23 13:45 ALT 16 U/L (0-33) 02/18/23 13:45 Alkaline Phosphatase 107 U/L (35-105) H 02/18/23 13:45 Total Protein 7.7 g/dL (6.6-8.7) 02/18/23 13:45 Albumin 4.3 g/dL (3.5-5.2) 02/18/23 13:45 Globulin 3.4 g/dL (1.3-4.6) 02/18/23 13:45 Lipase 59 U/L (13-60) 02/18/23 13:45 All radiology interpretation(s) finalized by discharge Discharge Plan Discharge Patient Disposition: Home Clinical Impression: Lumbar radicular pain Abdominal pain Qualifiers: Abdominal location: right lower quadrant Qualified Code(s): R10.31 - Right lower quadrant pain Condition: Stable Prescriptions: New hydrocodone-acetaminophen 5-325 mg tablet 1 tab PO Q8H PRN (Reason: pain (scale score 7-10)) Qty: 10 0RF No Action albuterol sulfate [Ventolin HFA] 90 mcg/actuation HFA aerosol inhaler 2 puff inhalation Q6H PRN (Reason: shortness of breath or wheezing) Qty: 8.5 3RF celecoxib [Celebrex] 100 mg capsule 100 mg PO DAILY Eliquis 5 mg tablet 5 mg PO BID montelukast 10 mg tablet 10 mg PO DAILY tizanidine 4 mg tablet 4 mg PO Q8H PRN cholecalciferol (vitamin D3) 25 mcg (1,000 unit) tablet 25 mcg PO DAILY potassium chloride 20 mEq tablet extended release 20 meq PO DAILY Qty: 30 3RF metoprolol succinate 50 mg tablet extended release 24 hr 25 mg PO BID magnesium oxide 250 mg magnesium tablet 200 mg PO DAILY melatonin 3 mg capsule 6 mg PO DAILY Mucinex 1,200 mg tablet extended release 12hr 1,200 mg PO BID PRN (Reason: congestion) Qty: 30 2RF loratadine 10 mg tablet 10 mg PO DAILY Qty: 14 0RF Rx Instructions: take in morning cetirizine 10 mg tablet 10 mg PO DAILY Qty: 14 0RF Rx Instructions: take in evening Discharge Orders: Discharge ED (Routine); Ordered 02/18/23 Ordered By: Vikash Rao Referrals: Clare Arnett MD [Primary Care Provider] - Discharge Diet: Usual diet Discharge Activity: Increase activity as tolerated Patient Instructions: Abdominal Pain (ED), Opioid Safety, Pain Management Activity Restrictions/Additional Instructions: Maintain activity as much as possible. Use cane or walker to help with ambulation. Use acetaminophen, [id number] Tylenol, 1000 mg 3 times a day to help with pain. Continue Celebrex as prescribed. Use hydrocodone for severe pain. Use ice or heat for further pain relief. Follow-up with primary care. Return to ED for worsening symptoms such as high fever greater than 100.4, blood in vomit or stool, increased shortness of breath, or new concerns. Coding Level of Care Code ED Process Planner for David Hyde
[2023-02-18 14:22] LABS: Basophils # 0.1 10^3/uL (0.0-0.1); Basophils % 0.7 %; Eosinophils # 0.1 10^3/uL (0.0-0.8); Eosinophils % 1.1 %; Hematocrit 42.6 % (36-47); Lymphocytes # 3.3 10^3/uL (0.8-4.8); Lymphocytes % 46.4 %; Mean Corpuscular HGB Conc 33.8 g/dL (30-55); Mean Corpuscular Hemoglobin 35.1 pg (27-33); Mean Corpuscular Volume 103.9 fl (85-98); Mean Platelet Volume 10.3 fL (7.4-10.4); Monocytes # 0.4 10^3/uL (0.2-0.9); Monocytes % 5.7 %; Neutrophils # 3.21 10^3/uL (1.8-7.7); Neutrophils % 45.8 %; Nucleated Red Blood Cells % 0 %; Platelet Count 221 10^3/cmm (157-399); Red Cell Distribution Width 12.2 % (12.1-15.1); White Blood Count 7.01 10^3/uL (3.29-11.43)
[2023-02-18 14:41] LABS: Alanine Aminotransferase 16 U/L (0-33); Albumin Level 4.3 g/dL (3.5-5.2); Alkaline Phosphatase 107 U/L (35-105); Anion Gap 17.4 (5-19); Aspartate Amino Transferase 24 U/L (0-32); Blood Urea Nitrogen 32 mg/dL (8-23); Calcium 10.3 mg/dL (8.5-10.5); Carbon Dioxide 22 mmol/L (22-29); Chloride 105 mmol/L (98-107); Globulin 3.4 g/dL (1.3-4.6); Glucose 84 mg/dL (65-115); Lipase 59 U/L (13-60); Osmolality Calculated 296 mOsm/kg (285-295); Potassium 4.4 mmol/L (3.5-5.1); Sodium 140 mmol/L (136-145); Total Bilirubin 0.4 mg/dL (0.15-1.2); Total Protein 7.7 g/dL (6.6-8.7)
== END 2023-02-18 16:21 | disposition home or self-care (01) ==
PROVIDERS: Emergency Medicine; Emergency Provider Nurse Practitioner Family; PCP Family Medicine
DX: R10.31 Right lower quadrant pain (principal); M54.16 Radiculopathy, lumbar region; Z79.01 Long term (current) use of anticoagulants; I10 Essential (primary) hypertension
CPT/HCPCS: 36415; 74176; 80053; 83690; 85025; 99284

== ENCOUNTER → 2023-07-02 10:52 | Outpatient (BNVA) | payer MEDICARE, OTHER, SELFPAY | PROVIDERS: PCP Family Medicine; Visit Provider Internal Medicine Pulmonary Disease | DX: R06.02 Shortness of breath (principal); J47.9 Bronchiectasis, uncomplicated; U09.9 Post COVID-19 condition, unspecified | CPT/HCPCS: 99214 ==

== ENCOUNTER → 2024-02-01 08:45 | Outpatient (BNVA) | payer MEDICARE, OTHER, SELFPAY | PROVIDERS: PCP Family Medicine; Visit Provider Nurse Practitioner Family | DX: L57.8 Other skin changes due to chronic exposure to nonionizing radiation (principal); L82.1 Other seborrheic keratosis; D22.5 Melanocytic nevi of trunk; L81.4 Other melanin hyperpigmentation; L85.3 Xerosis cutis; L73.8 Other specified follicular disorders; Z80.8 Family history of malignant neoplasm of other organs or systems; L82.0 Inflamed seborrheic keratosis; L53.8 Other specified erythematous conditions; L29.89 Other pruritus | CPT/HCPCS: 17000; 17110; 99213 ==

== ENCOUNTER 2024-03-17 14:48 | Outpatient (CLI) | payer MEDICARE, OTHER, SELFPAY ==
--- NOTE | 2024-03-17 14:51 | XR_ITS ---
WS: [id number] DEXA (DUAL ENERGY X-RAY ABSORPTIOMETRY) Bone mineral density was performed using a [employer] machine. HISTORY: ASYMPTOMATIC MENOPAUSAL STATE COMPARISON: 01/02/2022 Lumbar spine BMD (L1-L4): 1.423 g/cm2 T score: 2.0 Z score: 3.3 Total hip BMD: Left: 1.030 g/cm2. T score: 0.2 Z score: 1.7 Right: 1.037 g/cm2. T score: 0.2 Z score: 1.7 10 year probability of a major osteoporotic fracture is 9.9%. Compared to the prior study from 01/02/2022. Lumbar spine bone mineral density has increased by 2.4%. Bilateral hips bone mineral density has increased by 0.5%. XR/XR DEXA axial skeleton* 13990 IMPRESSION: NORMAL BONE MINERAL DENSITY based upon the WHO classification for females. Significant increase in bone mineral density within the lumbar spine since the prior exam. No significant change of bone mineral density within the hips.
== END 2024-03-17 14:49 | disposition home or self-care (01) ==
LOC: RAD 14:49
PROVIDERS: PCP Family Medicine; Visit Provider Family Medicine
DX: Z78.0 Asymptomatic menopausal state (principal)
CPT/HCPCS: 77080

== ENCOUNTER 2024-07-30 15:37 | Emergency (ER) | payer MEDICARE, OTHER, SELFPAY ==
--- NOTE | 2024-07-30 15:39 | XRR_ITS ---
PROCEDURE INFORMATION: Exam: XR Chest Exam date and time: 07/30/2024 3:59 PM Age: 78 years old Clinical indication: Cough TECHNIQUE: Imaging protocol: Radiologic exam of the chest. Views: 1 view. COMPARISON: CT chest abdpel w/*[id number] 02/16/2022 8:24 PM FINDINGS: Lungs: Unremarkable. No consolidation. Pleural spaces: Unremarkable. No pleural effusion. No pneumothorax. Heart/Mediastinum: Unremarkable. No cardiomegaly. Bones/joints: Unremarkable. XR/XR chest 1V portable [id number] IMPRESSION: No acute findings.
[2024-07-30 15:43] VITALS: BP 135/78; PULSE 77; RESP 16; TEMP 36.8; O2SAT 92
--- NOTE | 2024-07-30 15:49 | W.ED.URI ---
HPI - URI/Sore Throat General: Chief Complaint: Upper Respiratory Infection Stated Complaint: cough, congestion Time Seen by Provider: 07/30/24 15:44 Source: patient Mode of arrival: ambulatory Limitations: no limitations History of Present Illness: 78-year-old female history of bronchiectasis along with post-COVID syndrome states over the last 4 days she has had a slight increase in cough some mild dyspnea states she always has had a cough since COVID she denies any fever she has had a sore throat. Associated symptoms: Deny abdominal pain, chills, chest pain, diarrhea, fever(s), headache(s), nausea or vomiting Related Data Home Medications ?Medication ?Instructions ?Recorded ?Confirmed apixaban 5 mg tablet (Eliquis) 5 mg PO BID 09/25/20 07/30/24 cholecalciferol (vitamin D3) 25 25 mcg PO DAILY 09/25/20 07/30/24 mcg (1,000 unit) tablet montelukast 10 mg tablet 10 mg PO DAILY 09/25/20 07/30/24 metoprolol succinate 50 mg 25 mg PO BID 10/18/20 07/30/24 tablet,extended release 24 hr magnesium oxide 250 mg PO DAILY 06/03/22 07/30/24 calcium carbonate 500 mg PO DAILY 07/30/24 07/30/24 cetirizine 10 mg tablet 10 mg PO QPM 07/30/24 07/30/24 loratadine 10 mg tablet 10 mg PO QAM 07/30/24 07/30/24 potassium gluconate 600 mg (99 mg) 600 mg PO DAILY 07/30/24 07/30/24 tablet Previous Rx's ?Medication ?Instructions ?Recorded guaifenesin 1,200 mg tablet, 1,200 mg PO BID PRN congestion #30 05/31/21 extended release 12 hr (Mucinex) tabs Allergies Allergy/AdvReac Type Severity Reaction Status Date / Time Alpha-Gal Allergy Unconscious Verified 07/02/23 11:37 (Ojraeelap-Oeraw-0,3-Gala cefuroxime (From Ceftin) Allergy ALGY-Rash Verified 07/02/23 11:35 erythromycin base Allergy rash Verified 07/02/23 11:35 meloxicam Allergy rash Verified 07/02/23 11:35 Review of Systems Const: Denies: fever(s), chills, body aches or change in appetite ENMT: Reports: throat pain; Denies: dental pain Card: Denies: chest pain Resp: Reports: productive cough; Denies: dyspnea GI: Denies: abdominal pain, nausea, vomiting or diarrhea Musc: Denies: neck pain or back pain Skin/Breast: Denies: rash Neuro: Denies: headache(s) PFSH ED PFSH: Medical History Post-COVID syndrome Hypertension Surgical History History of left knee replacement Family History Father CAD (coronary artery disease) Mother CAD (coronary artery disease) Social History Smoking and tobacco/nicotine status: never used tobacco/nicotine Alcohol intake: never Substance/Drug Use: never Physical Exam Const: COMMON NORMALS: no acute distress, patient oriented x3 and healthy appearing HENMT: COMMON NORMALS: normocephalic and atraumatic HEAD & SCALP: normocephalic and atraumatic Neck/C-Spine: COMMON NORMALS: full ROM and supple Chest: COMMONS NORMALS: normal inspection of the chest and normal palpation of entire chest wall Resp: COMMON NORMALS: normal respiratory effort, No retractions, No use of accessory muscles and clear to auscultation bilaterally AUSCULTATION: clear to auscultation bilaterally Cardio: COMMON NORMALS: regular rate, regular rhythm and No murmurs present (Cardio) RATE: regular rate RHYTHM: regular rhythm Extremity: COMMON NORMALS: normal to inspection and full ROM Neuro: COMMON NORMALS: patient oriented x3, moves all extremities and no focal motor deficits Psych: COMMON NORMALS: mental status grossly normal, Normal thought process present and cooperative THOUGHT PROCESS: Normal thought process present Skin: COMMON NORMALS: no rashes or lesions noted and no wounds GENERAL SKIN EXAM: no rashes or lesions noted Course Vital Signs: Vital signs: Vital Signs Temperature 98.2 F 07/30/24 15:43 Pulse Rate 78 07/30/24 16:39 Respiratory Rate 20 H 07/30/24 16:26 Blood Pressure 135/79 07/30/24 16:39 Pulse Oximetry 97 07/30/24 16:39 Oxygen Delivery Me thod Room Air 07/30/24 16:26 MDM - URI/Sore Throat Medical Decision Making Patient presents for cough congestion likely upper respiratory infection x-ray shows no pneumonia she is in no distress here she stable for discharge follow-up PCP return if worsening. Medical Records I reviewed the patient's medical records. Lab Data I reviewed the patient's lab results. Laboratory Results Influenza A (PCR) Negative (Negative) 07/30/24 15:57 Influenza Type B (PCR) Negative (Negative) 07/30/24 15:57 RSV (PCR) Negative (Negative) 07/30/24 15:57 SARS-CoV-2 (PCR) Negative (Negative) 07/30/24 15:57 Group A Strep Rapid Negative (Negative) 07/30/24 15:57 XR interpretation done by ED provider, pending radiology final review ED provider radiology interpretation(s): cxr: no acute abnormality Discharge Plan Discharge Patient Disposition: Home Clinical Impression: Upper respiratory infection Condition: Stable Prescriptions: No Action Eliquis 5 mg tablet 5 mg PO BID montelukast 10 mg tablet 10 mg PO DAILY cholecalciferol (vitamin D3) 25 mcg (1,000 unit) tablet 25 mcg PO DAILY metoprolol succinate 50 mg tablet extended release 24 hr 25 mg PO BID magnesium oxide 250 mg magnesium tablet 250 mg PO DAILY Mucinex 1,200 mg tablet extended release 12hr 1,200 mg PO BID PRN (Reason: congestion) Qty: 30 2RF calcium carbonate [Calcium 500] 500 mg calcium (1,250 mg) Tablet 500 mg PO DAILY potassium gluconate 600 mg (99 mg) Tablet 600 mg PO DAILY cetirizine 10 mg tablet 10 mg PO QPM loratadine 10 mg tablet 10 mg PO QAM Discharge Orders: Discharge ED (Routine); Ordered 07/30/24 Ordered By: Alex Manzano Referrals: Clare Arnett MD [Primary Care Provider, Family Practice] - 4-7 days Discharge Diet: Advance as tolerated Discharge Activity: Resume usual activity Patient Instructions: Upper Respiratory Infection (ED) Print Language: Khmer Coding Level of Care Code ED [employer]ace for David Hyde
[2024-07-30] MEDS: dexamethasone 10 mg/mL INJ IM (15:58)
[2024-07-30 16:05] LABS: Rapid Strep A Test Negative (Negative)
[2024-07-30] MEDS: ipratropium-albuterol 3 mL Neb INHALATION (16:24)
[2024-07-30 16:26] VITALS: PULSE 69; RESP 20; O2SAT 95
[2024-07-30 16:32] VITALS: PULSE 75
[2024-07-30 16:37] LABS: Influenza A NEGATIVE (Negative); Influenza B NEGATIVE (Negative); Respiratory Syncytial Virus Ce NEGATIVE (Negative); SARS-CoV-2 PCR NEGATIVE (Negative)
[2024-07-30 16:39] VITALS: BP 135/79; PULSE 78; O2SAT 97
[2024-07-30 16:54] VITALS: BP 119/79; PULSE 78; O2SAT 98
== END 2024-07-30 16:54 | disposition home or self-care (01) ==
PROVIDERS: Emergency Provider Emergency Medicine; PCP Family Medicine
DX: J06.9 Acute upper respiratory infection, unspecified (principal); Z11.52 Encounter for screening for COVID-19; Z79.01 Long term (current) use of anticoagulants; I10 Essential (primary) hypertension
CPT/HCPCS: 71045; 87081; 87637; 87880; 94640; 96372; 99284; J1100; J9999

== ENCOUNTER → 2025-01-16 11:05 | Outpatient (BNVA) | payer MEDICARE, OTHER, SELFPAY | PROVIDERS: PCP Family Medicine; Visit Provider Family Medicine | DX: Z00.00 Encounter for general adult medical examination without abnormal findings (principal); R32 Unspecified urinary incontinence; R25.2 Cramp and spasm; Z13.6 Encounter for screening for cardiovascular disorders; Z13.1 Encounter for screening for diabetes mellitus; Z51.81 Encounter for therapeutic drug level monitoring; E55.9 Vitamin D deficiency, unspecified | CPT/HCPCS: 80053; 80061; 82306; 83036; 83735; 85025 ==

== ENCOUNTER → 2025-01-30 10:33 | Outpatient (BNVA) | payer MEDICARE, OTHER, SELFPAY | PROVIDERS: PCP Family Medicine; Referring Provider Family Medicine; Visit Provider Internal Medicine | DX: J96.11 Chronic respiratory failure with hypoxia (principal); Z99.81 Dependence on supplemental oxygen; J98.4 Other disorders of lung; J47.9 Bronchiectasis, uncomplicated; J84.10 Pulmonary fibrosis, unspecified; J84.9 Interstitial pulmonary disease, unspecified; Z86.16 Personal history of COVID-19; J44.9 Chronic obstructive pulmonary disease, unspecified | CPT/HCPCS: 99214; Q3014 ==